=== PATIENT | male | born 1945 | race Caucasian/White ===

== ENCOUNTER 2020-12-05 08:35 | Outpatient (REF) | payer MEDICARE, OTHER, SELFPAY ==
--- NOTE | ~2020-12-05 | MR_ITS ---
EXAMINATION: MR BRAIN WITHOUT AND WITH CONTRAST CLINICAL INFORMATION: Bilateral sensorineural hearing loss. Left-sided tinnitus. COMPARISON: CT scan of the sinuses 09/30/2019. TECHNIQUE: Multiplanar MR imaging of the brain was performed without and with contrast. A total of 8.5 mL Gadavist was utilized for this examination. FINDINGS: Dedicated high-resolution imaging through the posterior fossa reveals no cerebellopontine angle cistern mass. There is no abnormal enhancement along the cisternal segments of the 7th or 8th cranial nerves. Labyrinthine structures are morphologically normal. There is no mastoid middle ear effusion. No abnormal petrous temporal bone enhancement. There is no intracranial mass effect or midline shift. No abnormal extra-axial collection. Lateral and third ventricles are normal. No hydrocephalus. Midline structures including the cervicomedullary junction are normal. No acute bone marrow signal changes. There are a few scattered nonspecific foci of T2 FLAIR signal hyperintensity within the periventricular white matter. No acute territorial infarct. No pathological magnetic susceptibility artifact. Intracranial vascular flow voids are maintained. There is no mastoid or middle ear effusion. No active paranasal sinus disease. MR/MR head/brain wo/w con IMPRESSION: Normal brain MRI.
[2020-12-05 09:18] LABS: Blood Urea Nitrogen 16 mg/dL (9-16); Estimated Glomerular Filt Rate 58
== END 2020-12-05 08:36 | disposition home or self-care (01) ==
LOC: HO.MRI 08:35
PROVIDERS: Visit Provider Otolaryngology
DX: H90.3 Sensorineural hearing loss, bilateral (principal); H93.12 Tinnitus, left ear
CPT/HCPCS: 36415; 70553; 82565; 84520; A9585

== ENCOUNTER 2022-10-06 14:36 | Emergency (ER) | payer MEDICARE, OTHER, SELFPAY ==
--- NOTE | 2022-10-06 15:00 | ED.WOUNDLAC ---
HPI - Wound/Laceration General Chief Complaint: Wound/Laceration <TAMIKA Barrientos - Last Filed: 10/06/22 15:05> Stated Complaint: l arm laceration <TAMIKA Barrientos - Last Filed: 10/06/22 15:05> Time Seen by Provider: 10/06/22 16:48 <TAMIKA Barrientos - Last Filed: 10/06/22 15:05> Source: patient <Hermelinda Mendoza MD - Last Filed: 10/06/22 18:27> Mode of arrival: ambulatory <Hermelinda Mendoza MD - Last Filed: 10/06/22 18:27> History of Present Illness HPI narrative: 76-year-old male who cut his forearm on a piece of duct work and does not know his last tetanus shot and is not on a blood thinners. <Hermelinda Mendoza MD - Last Filed: 10/06/22 18:27> Related Data Allergies/Adverse Reactions: Allergies Allergy/AdvReac Type Severity Reaction Status Date / Time No Known Allergies Allergy Verified 10/06/22 15:03 <TAMIKA Barrientos - Last Filed: 10/06/22 15:05> Review of Systems Review of Systems: Pertinent positives and negatives as stated in HPI <Hermelinda Mendoza MD - Last Filed: 10/06/22 18:27> PMFSH Past Medical History Source: nursing notes reviewed <Hermelinda Mendoza MD - Last Filed: 10/06/22 18:27> Social History Social History: Social History Advance Directives: No Advance Directives Information Provided: Yes <TAMIKA Barrientos - Last Filed: 10/06/22 15:05> Physical Exam Vital Signs: Vital Signs: Last Vital Signs Temp 97.8 F 10/06/22 15:01 Pulse 93 10/06/22 15:01 Resp 18 10/06/22 15:01 BP 167/90 H 10/06/22 15:01 Pulse Ox 95 10/06/22 15:01 O2 Del Method 10/06/22 15:01 BMI result Body Mass Index 25.1 <TAMIKA Barrientos - Last Filed: 10/06/22 15:05> Vital Signs: Last Vital Signs Temp 97.8 F 10/06/22 15:01 Pulse 93 10/06/22 15:01 Resp 18 10/06/22 15:01 BP 167/90 H 10/06/22 15:01 Pulse Ox 95 10/06/22 15:01 O2 Del Method 10/06/22 15:01 BMI result Body Mass Index 25.1 VITAL SIGNS: Reviewed. GENERAL: Well developed, well nourished, in no acute distress. HEAD: Normocephalic/atraumatic EYES: PERRLA, EOMI LUNGS: Normal breath sounds. No adventitious sounds or accessory muscle use. SpO2<95> CARDIOVASCULAR: Regular rate and rhythm without noted murmurs, ABDOMEN: Soft, non-tender, non-distended with bowel sounds. EXTREMITIES: No cyanosis, clubbing or edema; LUE: Full range of motion noted at the fingers and wrist, neurovascular is intact but there is a 4.5 cm laceration, superficial, hemostatic at the left forearm.. NEUROLOGIC: Alert and oriented x 4. Strength and sensation to light touch were grossly intact x 4. <Hermelinda Mendoza MD - Last Filed: 10/06/22 18:27> Vital Signs: Last Vital Signs Temp 97.8 F 10/06/22 15:01 Pulse 93 10/06/22 15:01 Resp 18 10/06/22 15:01 BP 167/90 H 10/06/22 15:01 Pulse Ox 95 10/06/22 15:01 O2 Del Method 10/06/22 15:01 BMI result Body Mass Index 25.1 <TAMIKA Clark - Last Filed: 10/06/22 17:42> Course Course Course Narrative: RME - 76 yo M presenting for evaluation of left arm laceration sustained today after a piece of duct work fell on it. He is unsure when his last tetanus immunization was. Left arm with 3cm linear laceration, bleeding well controlled. VSS in triage. Plan: tdap ordered. lidocaine order, will need sutures <TAMIKA Barrientos - Last Filed: 10/06/22 15:05> Reevaluation(s) Reevaluation #1: Patient now status post laceration repair with 11 sutures placed. Patient tolerated procedure well. No complications. Tetanus was updated. Will instruct patient to return suture removal. Patient understands agrees with this plan. <TAMIKA Clark - Last Filed: 10/06/22 17:42> Time: 17:41 <TAMIKA Clark - Last Filed: 10/06/22 17:42> Medications Administered Discontinued Medications Generic Name Dose Route Start Last Admin Trade Name Freq PRN Reason Stop Dose Admin Bacitracin 1 appl 10/06/22 17:40 10/06/22 17:46 Bacitracin Oint 0.9 Gm Packet TOPICAL 10/06/22 17:41 1 appl ONCE ONE Administration Protocol Diphtheria/Tetanus/Acell Pertussis 0.5 ml 10/06/22 15:02 10/06/22 17:42 Diphth,Pertus(Acell),Tet Adult 0.5 Ml Syringe IM 10/06/22 15:03 0.5 ml .ONCE ONE Administration Lidocaine HCl 10 ml 10/06/22 16:52 10/06/22 17:43 Lidocaine Hcl 1 % Mpf 5 Ml Vial SUBCUT 10/06/22 16:53 10 ml ONCE ONE Administration <TAMIKA Barrientos - Last Filed: 10/06/22 15:05> Medications Administered Discontinued Medications Generic Name Dose Route Start Last Admin Trade Name Freq PRN Reason Stop Dose Admin Bacitracin 1 appl 10/06/22 17:40 10/06/22 17:46 Bacitracin Oint 0.9 Gm Packet TOPICAL 10/06/22 17:41 1 appl ONCE ONE Administration Protocol Diphtheria/Tetanus/Acell Pertussis 0.5 ml 10/06/22 15:02 10/06/22 17:42 Diphth,Pertus(Acell),Tet Adult 0.5 Ml Syringe IM 10/06/22 15:03 0.5 ml .ONCE ONE Administration Lidocaine HCl 10 ml 10/06/22 16:52 10/06/22 17:43 Lidocaine Hcl 1 % Mpf 5 Ml Vial SUBCUT 10/06/22 16:53 10 ml ONCE ONE Administration <Hermelinda Mendoza MD - Last Filed: 10/06/22 18:27> Medications Administered Discontinued Medications Generic Name Dose Route Start Last Admin Trade Name Freq PRN Reason Stop Dose Admin Bacitracin 1 appl 10/06/22 17:40 10/06/22 17:46 Bacitracin Oint 0.9 Gm Packet TOPICAL 10/06/22 17:41 1 appl ONCE ONE Administration Protocol Diphtheria/Tetanus/Acell Pertussis 0.5 ml 10/06/22 15:02 10/06/22 17:42 Diphth,Pertus(Acell),Tet Adult 0.5 Ml Syringe IM 10/06/22 15:03 0.5 ml .ONCE ONE Administration Lidocaine HCl 10 ml 10/06/22 16:52 10/06/22 17:43 Lidocaine Hcl 1 % Mpf 5 Ml Vial SUBCUT 10/06/22 16:53 10 ml ONCE ONE Administration <TAMIKA Clark - Last Filed: 10/06/22 17:42> Medical Decision Making Medical Decision Making MDM Narrative: 76-year-old male who has a hemostatic laceration to the left upper extremity and is superficial in nature. Copiously irrigated and reapproximated with 4-0 nylon after administration of lidocaine. Patient tolerated procedure well. Patient received the Tdap today. <Hermelinda Mendoza MD - Last Filed: 10/06/22 18:27> Differential Diagnosis Differential Diagnoses: The differential diagnosis associated with the presentation includes <Hermelinda Mendoza MD - Last Filed: 10/06/22 18:27> Please see the discussion above <Hermelinda Mendoza MD - Last Filed: 10/06/22 18:27> Procedures Laceration Laceration 1: Site: upper extremity <TAMIKA Clark - Last Filed: 10/06/22 17:42> Side (If applicable): left <TAMIKA Clark - Last Filed: 10/06/22 17:42> Size (cm): 3 <TAMIKA Clark - Last Filed: 10/06/22 17:42> Description: linear <TAMIKA Clark - Last Filed: 10/06/22 17:42> Depth: simple, single layer <TAMIKA Clark - Last Filed: 10/06/22 17:42> Local Anesthetic: lidocaine 1% <TAMIKA Clark - Last Filed: 10/06/22 17:42> Amount of anesthesia used (mL): 3 <TAMIKA Clark - Last Filed: 10/06/22 17:42> Pre-repair: wound explored, irrigated extensively and deep structures intact <TAMIKA Clark - Last Filed: 10/06/22 17:42> Skin layer closed with: nylon <TAMIKA Clark - Last Filed: 10/06/22 17:42> Size (cm): 4-0 <TAMIKA Clark - Last Filed: 10/06/22 17:42> Number of sutures: 11 <TAMIKA Clark - Last Filed: 10/06/22 17:42> Technique: simple, interrupted <TAMIKA Clark - Last Filed: 10/06/22 17:42> Discharge Plan Discharge Clinical Impression: Laceration <TAMIKA Barrientos - Last Filed: 10/06/22 15:05> Patient Disposition: Home, Self-Care <TAMIKA Barrientos - Last Filed: 10/06/22 15:05> Instructions: Care For Your Stitches (ED), Laceration (ED) <TAMIKA Barrientos - Last Filed: 10/06/22 15:05> Additional Instructions: 1. Please return for the removal of your stitches in 5-7 days. You also received the tetanus booster today. 2. Please feel free to cleanse the area with soap and water after 24 hours, blot dry and reapply antibiotic ointment (do not use Neosporin). 3. Please feel free to return to the ER for the removal of your stitches. Use [id number] Tylenol/ibuprofen as needed for pain control. Return to the ER for any worsening symptoms. <TAMIKA Barrientos - Last Filed: 10/06/22 15:05> Referrals: Ifeoma Aragon MD [Primary Care Provider] - <TAMIKA Barrientos - Last Filed: 10/06/22 15:05> Interventions: ED Discharge Assessment Last Done: 10/06/22 17:49 <TAMIKA Barrientos - Last Filed: 10/06/22 15:05> Discharge Date/Time: 10/06/22 17:52 <TAMIKA Barrientos - Last Filed: 10/06/22 15:05>
[2022-10-06 15:01] VITALS: BP 167/90; PULSE 93; RESP 18; TEMP 36.6; O2SAT 95; BMI 25.1
[2022-10-06] MEDS: Diphth,Pertus(ACell),Tet Adult 0.5 ML SYRINGE IM (17:42)
[2022-10-06] MEDS: Lidocaine HCl 1 % MPF 5 ML VIAL 10 ML SUBCUT (17:43)
[2022-10-06] MEDS: Bacitracin Oint 0.9 GM PACKET 1 APPL TOPICAL (17:46)
== END 2022-10-06 17:52 | disposition home or self-care (01) ==
PROVIDERS: Emergency Provider Student in an Organized Health Care Education/Training Program; PCP Internal Medicine
DX: S51.812A Laceration without foreign body of left forearm, initial encounter (principal); W20.8XXA Other cause of strike by thrown, projected or falling object, initial encounter; Y93.E9 Activity, other interior property and clothing maintenance; Y92.019 Unspecified place in single-family (private) house as the place of occurrence of the external cause; Y99.9 Unspecified external cause status
CPT/HCPCS: 12002; 90471; 90715; 99282; 99284

== ENCOUNTER 2022-10-13 10:10 | Emergency (ER) | payer MEDICARE, OTHER, SELFPAY ==
[2022-10-13 10:16] VITALS: BP 174/82; PULSE 104; RESP 20; TEMP 36.7; O2SAT 96; BMI 25.8
--- NOTE | 2022-10-13 10:57 | ED.SKABFB ---
HPI - Skin/Abscess/Foreign Bdy General Chief complaint: Skin/Abscess/Foreign Body Stated complaint: Suture removal Time Seen by Provider: 10/13/22 10:57 Source: patient and old records reviewed Mode of arrival: ambulatory Limitations: no limitations History of Present Illness HPI narrative: 76 yo male presents to the ER for evaluation of a wound on his left forearm and for suture removal. He was here 7 days ago with a gaping wound to his distal left forearm when a metal duct fell and cut his arm. He required 11 sutures for wound closure. He denies any issues at home. No pain, drainage. He reports some mild redness around the wound but no warmth or concerns of infection. complaint: laceration Onset (ago): day(s) (7) Tetanus up to date: yes Location: LUE Severity: mild Relieving factors: none Exacerbating factors: none Context: none Associated symptoms: denies other symptoms Treatments prior to arrival: none Related Data Allergies Allergy/AdvReac Type Severity Reaction Status Date / Time No Known Allergies Allergy Verified 10/06/22 15:03 Review of Systems Review of Systems: Yes all other systems are reviewed and are negative [facility] Social History Social History Advance Directives: No Advance Directives Information Provided: No Physical Exam Vital Signs: Vital Signs: Last Vital Signs Temp 98.0 F 10/13/22 10:16 Pulse 104 H 10/13/22 10:16 Resp 20 10/13/22 10:16 BP 174/82 H 10/13/22 10:16 Pulse Ox 96 10/13/22 10:16 O2 Del Method 10/13/22 10:16 BMI result Body Mass Index 25.8 Appearance: Alert. Oriented X3. No acute distress. HEENT: normal inspection CVS: Normal heart rate and rhythm. Pulses normal. Respiratory: No respiratory distress. Skin: Skin warm and dry. Normal skin color. Normal skin turgor. No rashes. Extremities: distal left forearm with a well healing laceration, [address] mild erythema surrounding. no palpable fluid collection, no warmth or tenderness. Neuro: Oriented X 3. Grossly normal, nonfocal Course Course Course Narrative: tolerated suture removal. steri strips placed for additional support. discussed wound care. stable for d/c Medical Decision Making Medical Decision Making MDM Narrative: 76 yo male presents to the ER for wound evaluation and suture removal. Wound appears to be healing appropriately. When sutures were removed there are a few areas where not complete healing occurred, so steri strips were placed with good effect. we discussed wound care and return precautions. Differential Diagnosis Differential Diagnoses: The differential diagnosis associated with the presentation includes appropriate wound healing, less likely delayed healing or wound infection External Record Review External record reviewed: Outpatient record Critical Care Time Critical Care Time Critical Care Time: No Discharge Plan Discharge Clinical Impression: Visit for suture removal Patient Disposition: Home, Self-Care Instructions: Stitches Removal (ED) Additional Instructions: Do not get wet for 24 hours then you can briefly rinse with water and then pat dry The steri strips will come off on their own, usually within 1 week If you develop new or worsening symptoms call 911 or come back to the ER for further evaluation.
== END 2022-10-13 11:08 | disposition home or self-care (01) ==
LOC: HO.ED 11:07
PROVIDERS: Emergency Provider Emergency Medicine; PCP Internal Medicine
DX: S51.812D Laceration without foreign body of left forearm, subsequent encounter (principal); W20.8XXD Other cause of strike by thrown, projected or falling object, subsequent encounter; Z48.02 Encounter for removal of sutures
CPT/HCPCS: 99282

== ENCOUNTER 2022-11-13 11:07 | Outpatient (REF) | payer MEDICARE, OTHER, SELFPAY ==
[2022-11-13 14:36] LABS: Anion Gap 15 (12-20); Blood Urea Nitrogen 16 mg/dL (9-16); Calcium 9.5 mg/dL (8.4-10.2); Carbon Dioxide 26 mmol/L (22-29); Chloride 106 mmol/L (96-108); Estimated Glomerular Filt Rate 50; Glucose Random 109 mg/dL (60-115); Potassium 4.9 mmol/L (3.3-5.1); Sodium 142 mmol/L (135-145)
== END 2022-11-13 11:08 | disposition home or self-care (01) ==
LOC: HO.HMGCLDS 11:07
PROVIDERS: PCP Internal Medicine; Visit Provider Internal Medicine
DX: I10 Essential (primary) hypertension (principal); E78.9 Disorder of lipoprotein metabolism, unspecified
CPT/HCPCS: 36415; 80048

== ENCOUNTER 2022-12-22 07:53 | Outpatient (REF) | payer MEDICARE, OTHER, SELFPAY ==
[2022-12-22 08:05] LABS: MANUAL DIFF FLAG NO
[2022-12-22 08:15] LABS: Basophils Percent Auto 0.1 % (0-2); Eosinophils Absolute Auto 0.3 X10*3/uL (0.0-0.4); Eosinophils Percent Auto 4.1 % (0-4); Hematocrit 42.5 % (42.0-52.0); Hemoglobin 14.1 g/dl (14.0-18.0); Imm Gran Abs Auto 0.09 X10*3/uL (0.00-0.03); Imm Gran Pct Auto 1.1 % (0.0-0.4); Lymphocytes Absolute Auto 1.5 X10*3/uL (1.2-4.9); Mean Corpuscular HGB Conc 33.2 g/dl (31.0-36.0); Mean Corpuscular Hemoglobin 29.9 pg (27.0-33.0); Mean Platelet Volume 9.3 fL (9.4-12.4); Monocytes Percent Auto 12.5 % (2-11); Neutrophils Absolute Auto 5.1 x10*3/uL (2.0-8.3); Neutrophils Percent Auto 63.2 % (45-73); Platelet Count 368 X10*3/uL (160-400); Red Blood Count 4.72 X10*6/uL (4.60-5.80); Red Cell Distribution Width 13.6 % (11.0-16.0); White Blood Count 8.1 X10*3/uL (4.8-10.8)
[2022-12-22 08:40] LABS: Alanine Aminotransferase 12 U/L (0-40); Alkaline Phosphatase 96 U/L (39-117); Anion Gap 11 (12-20); Aspartate Amino Transferase 14 U/L (5-37); Bilirubin Total 0.5 mg/dL (0.0-1.0); Blood Urea Nitrogen 17 mg/dL (9-16); Calcium 9.3 mg/dL (8.4-10.2); Carbon Dioxide 27 mmol/L (22-29); Chloride 107 mmol/L (96-108); Cholesterol 178 mg/dL; Estimated Glomerular Filt Rate 46; Glucose Random 109 mg/dL (60-115); HDL Cholesterol 40 mg/dL; LDL Cholesterol Calculated 120 mg/dl; Potassium 4.7 mmol/L (3.3-5.1); Sodium 140 mmol/L (135-145); Total Protein 6.7 g/dL (6.5-8.0); Triglycerides 94 mg/dL
[2022-12-22 08:57] LABS: TSH reflex Free T4 1.01 uIU/mL (0.32-4.0)
== END 2022-12-22 07:54 | disposition home or self-care (01) ==
LOC: HO.LAB 07:53
PROVIDERS: PCP Internal Medicine; Visit Provider Nurse Practitioner Family
DX: I10 Essential (primary) hypertension (principal); E05.90 Thyrotoxicosis, unspecified without thyrotoxic crisis or storm; R79.9 Abnormal finding of blood chemistry, unspecified; Z13.0 Encounter for screening for diseases of the blood and blood-forming organs and certain disorders involving the immune mechanism; Z13.220 Encounter for screening for lipoid disorders
CPT/HCPCS: 36415; 80053; 80061; 84443; 85025

== ENCOUNTER 2023-02-04 07:35 | Outpatient (REF) | payer MEDICARE, OTHER, SELFPAY ==
[2023-02-04 08:44] LABS: Alanine Aminotransferase 11 U/L (0-40); Albumin Level 3.9 g/dL (3.5-5.0); Alkaline Phosphatase 99 U/L (39-117); Anion Gap 13 (12-20); Aspartate Amino Transferase 14 U/L (5-37); Bilirubin Total 0.6 mg/dL (0.0-1.0); Blood Urea Nitrogen 15 mg/dL (9-16); Calcium 9.8 mg/dL (8.4-10.2); Carbon Dioxide 24 mmol/L (22-29); Chloride 109 mmol/L (96-108); Estimated Glomerular Filt Rate 55; Glucose Random 107 mg/dL (60-115); Potassium 4.3 mmol/L (3.3-5.1); Sodium 142 mmol/L (135-145); Total Protein 7.3 g/dL (6.5-8.0)
== END 2023-02-04 07:36 | disposition home or self-care (01) ==
LOC: HO.LAB 07:35
PROVIDERS: PCP Nurse Practitioner Family; Visit Provider Nurse Practitioner Family
DX: R79.9 Abnormal finding of blood chemistry, unspecified (principal)
CPT/HCPCS: 36415; 80053

== ENCOUNTER 2023-03-31 09:25 | Outpatient (AMB) | payer MEDICARE, OTHER, SELFPAY ==
[2023-03-31 09:27] VITALS: BP 162/80; PULSE 93; O2SAT 97; BMI 25.1
--- NOTE | 2023-03-31 09:27 | MHC.PC.OV ---
Vital Signs 03/31/23 09:27 Height 5 ft 10 in Weight 175 lb BMI 25.1 BP 162/80 H Blood Pressure Location Lt brachial Position Sitting Pulse 93 Pulse Source Pulse Oximeter Pulse Oximetry (%) 97 Oxygen Delivery Method Room Air Intake Visit Reasons: HTN, Hypercholestermia,hypothyroid Allergies No Known Allergies Allergy (Verified 03/31/23 09:28) Tobacco use date assessed: 12/18/22 Fall risk assessment: No Falls in past year Last assessed Fall Risk: 03/31/23 Dental Screening Dental Screen Date: 03/31/23 Did you have a dental visit in the last 12 months?: Yes Did you have a dental problem in the last 6 months where you did not have access to dental care?: No Was dental information given to patient?: Patient has dentist HPI HPI Comments History of Present Illness Details 77-year-old male new patient presents today to establish care. Past medical history significant for hyperthyroidism, hypercholesteremia, HTN and GERD. HX Prostat CA in 1996, s/p prostatectomy. Patient states he follow with Dr. Riley Endocrinology at [facility] for hyperthyroidism and takes methimazole as directed by them. Patient currently on lisinopril 20mg daily, b/p elevated today 162/80. Patient reports HCTZ 12.5mg daily was added couple months ago by his general clerk for elevated b/p. Patient states checks b/p at home and it typically runs, 120-130/60/70's. Discussed increasing enalapril to 30 mg daily with patient, however patient declined at this time would like to continue to monitor blood pressure at home and will call office with any elevated blood pressure readings. Patient reports slight dizziness, when changing position fast, patient advised to change positions slowly to ensure drink plenty water. CMP and fasting lipid panel ordered Patient also reports [facility] which showed shomething on his liver, Dr. Aquino and recent colonoscopy. Records requested. [facility] Medical History (Updated 12/18/22 @ 10:22 by SONYA Negron) Lipid disorder Prostate cancer Surgical History (Updated 12/18/22 @ 10:24 by SONYA Negron) H/O colonoscopy H/O prostatectomy History of right shoulder replacement Family History (Updated 12/18/22 @ 10:26 by SONYA Negron) Mother H/O mitral valve replacement Colon cancer Father Cirrhosis, alcoholic Social History (Updated 12/18/22 @ 10:26 by SONYA Negron) Household Members: Spouse Housing: House Alcohol intake: current Alcohol intake frequency: a few times a month Alcohol type: wine Patient Tobacco Use Status: Never used Tobacco e-Cigarette/Vaping Use: Never Used Second Hand Smoke Exposure: No Current occupational status: retired Cognitive needs: No Hearing needs: No Vision needs: Yes Questionnaire PHQ-9 Over the last 2 weeks, how often have you been bothered by any of the following problems? 1. Little interest or pleasure in doing things: not at all 2. Feeling down, depressed, or hopeless: not at all 3. Trouble falling or staying asleep, or sleeping too much: not at all 4. Feeling tired or having little energy: not at all 5. Poor appetite or overeating: not at all 6. Feeling bad about yourself - or that you are a failure or have let yourself or your family down: not at all 7. Trouble concentrating on things, such as reading the newspaper or watching television: not at all 8. Moving or speaking so slowly that other people could have noticed. Or the opposite - being so fidgety or restless that you have been moving around a lot more than usual: not at all 9. Thoughts that you would be better off or of hurting yourself in some way: not at all Total score: 0 Depression Screening Interpretation: Negative 34886 - PHQ-9 Billing: Yes Source: Developed by Drs. Miguel Lindsey, Lorna Lazcano, Romario Alberto and colleagues, with an educational rosas from [employer]. Thrive Questionnaire Date Thrive assessed: 12/18/22 I am a: Patient What is your living situation today?: I have a steady place to live Within the past 12 months, did the food you bought not last and you didn't have the money to get more?: Never true Within the past 12 months, did you worry whether your food would run out before you got money to buy more?: Never true Do you have trouble paying for medicines?: No Do you have trouble getting transportation to medical appointments?: No Do you have trouble paying your heating and electricity bill?: No Do you have trouble taking care of your child, family member or friend?: No Do you have trouble with day-to-day activities such as bathing, preparing meals, shopping, managing finances, etc.?: No Are you currently unemployed and looking for a job?: No Are you interested in more education?: No Currently or been in a relationship where the following occur: no concerns reported AUDIT C Alcohol Use Questionnaire (AUDIT-C) 1. How often do you have a drink containing alcohol?: Never Total Score: 0 GREGORY-7 AMB Questionnaire GREGORY-7 Date GREGORY - 7 assessed: 12/18/22 Feeling nervous, anxious, or on edge: 0 = Not at all Not being able to stop or control worryin = Not at all Worrying too much about different things: 0 = Not at all Trouble relaxin = Not at all Being so restless that it is hard to sit still: 0 = Not at all Becoming easily annoyed or irritable: 0 = Not at all Feeling afraid as if something awful might happen: 0 = Not at all Total GREGORY-7 score (0-4 normal; 5-9 mild; 10-14 moderate; 15-21 severe): 0 Source: Developed by Drs. Miguel Lindsey, Lorna Lazcano, Romario Alberto and colleagues, with an educational rosas from [employer]. GREGORY-7 Assessment Billing GREGORY-7 Assessment Tool: GREGORY-7 Assessment 01071 Review of Systems Const Denies chills, Denies fatigue, Denies fever(s) and Denies poor appetite Eyes Denies no additional complaints ENT Reports Normal hearing present Card Denies chest pain, Denies syncope, Denies rapid heart rate and Denies dyspnea Resp Denies cough and Denies dyspnea GI Denies change in stool character, Denies constipation, Denies diarrhea, Denies nausea and Denies vomiting Denies dysuria, Denies urinary frequency and Denies urinary urgency Neuro Reports Normal hearing present, Denies confusion and Denies syncope Psych Denies confusion Endo Denies fatigue Physical exam (Primary Care) Vital Signs: Last Vital Signs Pulse 93 03/31/23 09:27 BP 162/80 H 03/31/23 09:27 Pulse Ox 97 03/31/23 09:27 Oxygen Delivery Method Room Air 03/31/23 09:27 BMI result Body Mass Index 25.1 Tobacco/Smoking Status: Tobacco use Status Tobacco use date assessed 12/18/22 03/31/23 09:31 Patient Tobacco Use Status Never used Tobacco 03/31/23 09:31 e-Cigarette/Vaping Use Never Used 03/31/23 09:31 PHQ-9: PHQ-9 Score PHQ-9: Total score 0 03/31/23 10:01 Depression Screening Interpretation: Negative Thrive Assessment: Date of Thrive Assessment Date Thrive assessed 12/18/22 03/31/23 09:31 Currently or been in a relationship where the following occur: no concerns reported Const General: No confusion Orientation/consciousness: No confusion HENMT Head: Yes normocephalic and Yes atraumatic Eyes Conjunctivae: conjunctivae normal Chest Chest palpation & inspection: normal inspection of the chest Resp Effort & Inspection: normal respiratory effort Auscultation: clear to auscultation bilaterally, no crackles, no rhonchi and no wheezes Cardio Rate: regular rate Rhythm: regular rhythm Heart sounds: S1 normal heart sound present and S2 normal heart sound present GI Inspection: Yes normal to inspection Neuro General: No confusion Cranial nerves: Yes Normal hearing present Extrem General: No edema Assessment and Plan Assessment & Plan (1) Hypertension, essential: Code(s): I10 - Essential (primary) hypertension Plan: Continue on enalapril 20 mg daily and HCTZ 12.5 mg daily. Follow low-salt diet and exercise. Please monitor blood pressure home after sitting down for 3-5 minutes and keep a log. Please notify PCP of elevated blood pressure readings. (2) Hypercholesteremia: Code(s): E78.00 - Pure hypercholesterolemia, unspecified Plan: Continue on pravastatin 40 mg daily. Avoid fried foods, chicken skin, eggs, butter,margarine, pastries and? red meat. (3) Hyperthyroidism: Code(s): E05.90 - Thyrotoxicosis, unspecified without thyrotoxic crisis or storm Plan: Continue to follow with [facility] endocrinology. Continue Methimazole 10mg daily. (4) GERD (gastroesophageal reflux disease): Code(s): K21.9 - Gastro-esophageal reflux disease without esophagitis Plan: Continue on pantoprazole 40 mg daily. Plan Follow-up in 3 months. Orders: Orders Comprehensive [place]. Panel Fast Today E78.00 - Pure hypercholesterolemia, unspecified, I10 - Essential (primary) hypertension Lipid Panel Today E78.00 - Pure hypercholesterolemia, unspecified Medications: Refilled enalapril maleate 20 mg PO DAILY 90 tabs 3RF I10 - Essential (primary) hypertension pravastatin 40 mg PO DAILY 90 tabs 3RF Coding Level of Care Code Est Pt Level 3 (99947) Diagnoses Hypertension, essential I10 Hypercholesteremia E78.00 Hyperthyroidism E05.90 GERD (gastroesophageal reflux disease) K21.9 Additional Codes GREGORY-7 Assessment Billing - GREGORY-7 Assessment Tool: GREGORY-7 Assessment [id number] ([id number])
== END 2023-03-31 10:03 | disposition home or self-care (01) ==
PROVIDERS: Visit Provider Nurse Practitioner Family
DX: I10 Essential (primary) hypertension (principal); E78.00 Pure hypercholesterolemia, unspecified; E05.90 Thyrotoxicosis, unspecified without thyrotoxic crisis or storm; K21.9 Gastro-esophageal reflux disease without esophagitis
CPT/HCPCS: 99213

== ENCOUNTER 2023-04-23 08:02 | Outpatient (REF) | payer MEDICARE, OTHER, SELFPAY ==
[2023-04-23 11:20] LABS: Alanine Aminotransferase 13 U/L (0-40); Alkaline Phosphatase 86 U/L (39-117); Anion Gap 13 (12-20); Aspartate Amino Transferase 16 U/L (5-37); Bilirubin Total 0.5 mg/dL (0.0-1.0); Blood Urea Nitrogen 18 mg/dL (9-16); Calcium 9.4 mg/dL (8.4-10.2); Carbon Dioxide 24 mmol/L (22-29); Chloride 107 mmol/L (96-108); Cholesterol 179 mg/dL (<200); Estimated Glomerular Filt Rate 42; Glucose Fasting 112 mg/dL (60-99); HDL Cholesterol 42 mg/dL (>40); LDL Cholesterol Calculated 117 mg/dL (<100); Potassium 4.2 mmol/L (3.3-5.1); Sodium 140 mmol/L (135-145); Total Protein 7.2 g/dL (6.5-8.0); Triglycerides 102 mg/dL (<150)
== END 2023-04-23 08:03 | disposition home or self-care (01) ==
LOC: HO.10HDL 08:02
PROVIDERS: Visit Provider Nurse Practitioner Family
DX: E78.00 Pure hypercholesterolemia, unspecified (principal); I10 Essential (primary) hypertension
CPT/HCPCS: 36415; 80053; 80061

== ENCOUNTER 2023-05-08 08:01 | Outpatient (REF) | payer MEDICARE, OTHER, SELFPAY ==
[2023-05-08 11:27] LABS: Alanine Aminotransferase 11 U/L (0-40); Albumin Level 4.2 g/dL (3.5-5.0); Alkaline Phosphatase 82 U/L (39-117); Anion Gap 16 (12-20); Aspartate Amino Transferase 14 U/L (5-37); Bilirubin Total 0.6 mg/dL (0.0-1.0); Blood Urea Nitrogen 22 mg/dL (9-16); Calcium 9.4 mg/dL (8.4-10.2); Carbon Dioxide 21 mmol/L (22-29); Chloride 106 mmol/L (96-108); Estimated Glomerular Filt Rate 45; Glucose Fasting 107 mg/dL (60-99); Sodium 139 mmol/L (135-145); Total Protein 7.6 g/dL (6.5-8.0)
[2023-05-08 11:29] LABS: Estimated Average Glucose 108 mg/dL; Hemoglobin A1c % 5.4 % (<6.0)
== END 2023-05-08 08:02 | disposition home or self-care (01) ==
LOC: HO.10HDL 08:01
PROVIDERS: Visit Provider Nurse Practitioner Family
DX: R73.01 Impaired fasting glucose (principal)
CPT/HCPCS: 36415; 80053; 83036

== ENCOUNTER 2023-06-12 11:08 | Outpatient (AMB) | payer MEDICARE, OTHER, SELFPAY ==
--- NOTE | 2023-06-12 11:19 | HO.NEPHOV_ITS ---
Intake Vital Signs 06/12/23 11:20 Height 5 ft 10 in Weight 177 lb 4 oz BMI 25.4 BP 130/80 Blood Pressure Location Lt brachial Position Sitting Pulse 83 Pulse Source Pulse Oximeter Pulse Oximetry (%) 97 Intake Visit Reasons: CKD - Confirmed Instructional Technology Director Required: No Allergies No Known Allergies Allergy (Verified 06/12/23 11:20) HPI HPI Comments History of Present Illness Details 77-year-old man with a longstanding hist ory of hypertension which has been well controlled with enalapril. Recently hydrochlorothiazide 12.5 mg was added. Subsequently he developed lightheadedness and blood pressure dropped as low as 80 mm Hg systolic. Hydrochlorothiazide was discontinued. He monitors his blood pressure at home and systolic blood pressure is around 120-130 millimeter of mercury. Baseline creatinine is around 1.2-1.3 mg/dL as of 2020. In April 2023 creatinine bumped up to 1.59 widely was on enalapril 20 mg and hydrochlorothiazide 12.5 mg. No creatinine levels are available after discontinuation of hydrochlorothiazide. He has a history of a complex hepatic cyst and he is being followed by GI. Currently the plan is to monitor him. There was an incidental finding of a right renal cyst which has been documented as a simple cyst Today he has no specific complaints Assessment & Plan Assessment & Plan (1) CKD (chronic kidney disease): Code(s): N18.9 - Chronic kidney disease, unspecified Qualifiers: Chronic kidney disease stage 3 subtype: stage 3a (GFR 45-59) (2) Hypertension, essential: Code(s): I10 - Essential (primary) hypertension (3) SAMAN (acute kidney injury): Code(s): N17.9 - Acute kidney failure, unspecified Plan 77-year-old man with acute kidney injury superimposed on CKD. Acute kidney injury most likely due to hypoperfusion from a combination of GOPAL inhibitor and hydrochlorothiazide leading to hypotension. He has underlying chronic kidney disease most likely due to hypertensive nephrosclerosis. No evidence of obstruction based on the recent ultrasonogram. No reason to believe that is any active glomerular or interstitial disease at this time. Nevertheless we will rule that out. I plan to recheck the renal panel today. Since it has been more than 4 weeks since his HCTZ has been discontinued I expect the renal function to return to b aseline. If not we will proceed with further workup. I ordered a basic metabolic panel along with urinalysis. If he has significant shortness or hematuria will proceed with further workup. As well hypertension, the blood pressure seems acceptable. I encouraged him to stay on a low-sodium diet. He should monitor his blood pressure at home. The systolic blood pressure stays above 140 mmHg I will consider adding a small dose calcium channel isela. Complex hepatic cyst. Being followed by Gastroenterology. Simple right renal cyst. I do not think this needs further intervention at this time. All his questions were answered. Coding Level of Care Code New Pt Level 4 (71657) Diagnoses CKD (chronic kidney disease) N18.9 Chronic kidney disease stage 3 subtype: stage 3a (GFR 45-59) Hypertension, essential I10 SAMAN (acute kidney injury) N17.9 [facility] Medical History (Updated 06/12/23 @ 11:55 by Sonny Franklin MD) Prostate cancer Lipid disorder Surgical History (Updated 12/18/22 @ 10:24 by SONYA Negron) H/O colonoscopy History of right shoulder replacement H/O prostatectomy Family History (Updated 12/18/22 @ 10:26 by SONYA Negron) Mother H/O mitral valve replacement Colon cancer Father Cirrhosis, alcoholic Social History (Updated 12/18/22 @ 10:26 by SONYA Negron) Household Members: Spouse Housing: House Alcohol intake: current Alcohol intake frequency: a few times a month Alcohol type: wine Patient Tobacco Use Status: Never used Tobacco e-Cigarette/Vaping Use: Never Used Second Hand Smoke Exposure: No Current occupational status: retired Cognitive needs: No Hearing needs: No Vision needs: Yes Results Reviewed Results Reviewed: Serum creatinine 1.59 as of April 2023
[2023-06-12 11:20] VITALS: BP 130/80; PULSE 83; O2SAT 97; BMI 25.4
== END 2023-06-12 11:44 | disposition home or self-care (01) ==
LOC: HO.HKA 11:08
PROVIDERS: PCP Nurse Practitioner Family; Visit Provider Internal Medicine Hypertension Specialist
DX: I12.9 Hypertensive chronic kidney disease with stage 1 through stage 4 chronic kidney disease, or unspecified chronic kidney disease (principal); N18.9 Chronic kidney disease, unspecified; N17.9 Acute kidney failure, unspecified
CPT/HCPCS: 99203

== ENCOUNTER → 2023-06-12 11:08 | Outpatient (BNVA) | payer MEDICARE, OTHER, SELFPAY | PROVIDERS: PCP Nurse Practitioner Family; Visit Provider Internal Medicine Hypertension Specialist | DX: I12.9 Hypertensive chronic kidney disease with stage 1 through stage 4 chronic kidney disease, or unspecified chronic kidney disease (principal); N18.9 Chronic kidney disease, unspecified; N17.9 Acute kidney failure, unspecified | CPT/HCPCS: 99202 ==

== ENCOUNTER 2023-06-12 11:56 | Outpatient (REF) | payer MEDICARE, OTHER, SELFPAY ==
[2023-06-12 13:02] LABS: Appearance Urine Clear; Color Urine Yellow; Glucose Urine UA Negative (Negative); Leukocyte Esterase Urine Negative (Negative); Nitrite Urine Negative (Negative); PH 5.5 (5.0-9.0); Urine Blood Negative (Negative); Urine Ketones Negative (Negative); Urine Protein Negative (Neg-Trace)
[2023-06-12 13:09] LABS: Anion Gap 10 (12-20); Blood Urea Nitrogen 14 mg/dL (9-16); Calcium 9.2 mg/dL (8.4-10.2); Carbon Dioxide 25 mmol/L (22-29); Chloride 106 mmol/L (96-108); Estimated Glomerular Filt Rate 51; Potassium 4.3 mmol/L (3.3-5.1); Sodium 137 mmol/L (135-145)
== END 2023-06-12 11:57 | disposition home or self-care (01) ==
LOC: HO.10HDL 11:56
PROVIDERS: Visit Provider Internal Medicine Hypertension Specialist
DX: I12.9 Hypertensive chronic kidney disease with stage 1 through stage 4 chronic kidney disease, or unspecified chronic kidney disease (principal); N18.9 Chronic kidney disease, unspecified
CPT/HCPCS: 36415; 80051; 81003; 82310; 82565; 84520

== ENCOUNTER 2023-06-30 08:45 | Outpatient (AMB) | payer MEDICARE, OTHER, SELFPAY ==
--- NOTE | 2023-06-30 08:51 | MHC.PC.OV ---
Vital Signs 06/30/23 08:52 Height 5 ft 10 in Weight 178 lb BMI 25.5 BP 142/80 H Blood Pressure Location Lt brachial Position Sitting Pulse 92 Pulse Source Pulse Oximeter Pulse Oximetry (%) 97 Oxygen Delivery Method Room Air Intake Visit Reasons: HTN, Hypercholestermia Intake Note: Patient is here to follow up on HTN, Hypercholestermia. Sqe Required: No Artist Relationship Manager: Not Required per policy Accompanied by: Self / Same As Patient Allergies No Known Allergies Allergy (Verified 06/30/23 08:52) Tobacco use date assessed: 06/30/23 Fall risk assessment: No Falls in past year Last assessed Fall Risk: 06/30/23 Dental Screening Dental Screen Date: 06/30/23 Did you have a dental visit in the last 12 months?: Yes Did you have a dental problem in the last 6 months where you did not have access to dental care?: No Was dental information given to patient?: Patient has dentist HPI HPI Comments History of Present Illness Details 77-year-old male new patient presents today to establish care. Past medical history significant for hyperthyroidism, hypercholesteremia, HTN and GERD. HX Prostat CA in 1996, s/p prostatectomy. Patient states he follow with Dr. Riley Endocrinology at [facility] for hyperthyroidism and takes methimazole as directed by them. Patient currently on enalapril 20mg daily, b/p elevated today 162/80. Patient reports HCTZ 12.5mg daily was added couple months ago by his property claim rep for elevated b/p. Patient developed lightheadedness and hypotension in 80's. HCTZ was discotninued in May. Patient b/p 130/140 systolically, 70's/80's. Patient was seen by nephrology for CKD Patient denies nasal congestion, states when wake up in morning, when lays on back with get a wheeze in the morning and coughs up lot of mucus, then it resolves. Patient reports he does snore at night, denies periods of apnea, does have some daytime fatigue. Discussed sleep study for further evaluation for sleep apnea, patient reports he does not feel he has sleep apnea and states only snores sometimes. Declines sleep study at this time patient states does get winded when doing yard work or going up and down the stairs. 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 Patient is concerned he has a lung problem. [facility] Medical History (Updated 06/30/23 @ 09:22 by SONYA Negron) Prostate cancer Lipid disorder Surgical History H/O colonoscopy History of right shoulder replacement H/O prostatectomy Family History Mother H/O mitral valve replacement Colon cancer Father Cirrhosis, alcoholic Household Members: Spouse Housing: House Alcohol intake: current Alcohol intake frequency: a few times a month Alcohol type: wine Patient Tobacco Use Status: Never used Tobacco e-Cigarette/Vaping Use: Never Used Second Hand Smoke Exposure: No service: No Current occupational status: retired Cognitive needs: No Hearing needs: No Vision needs: Yes Questionnaire Thrive Questionnaire Date Thrive assessed: 12/18/22 GREGORY-7 AMB Questionnaire GREGORY-7 Date GREGORY - 7 assessed: 12/18/22 Source: Developed by Drs. Miguel Lindsey, Lorna Lazcano, Romario Alberto and colleagues, with an educational rosas from [employer]. Review of Systems Const Denies chills, Denies fatigue, Denies fever(s) and Denies poor appetite Eyes Denies no additional complaints ENT Reports Normal hearing present Card Denies chest pain, Denies syncope, Denies rapid heart rate and Denies dyspnea Resp Denies cough and Denies dyspnea GI Denies change in stool character, Denies constipation, Denies diarrhea, Denies nausea and Denies vomiting Denies dysuria, Denies urinary frequency and Denies urinary urgency Neuro Reports Normal hearing present, Denies confusion and Denies syncope Psych Denies confusion Endo Denies fatigue Physical exam (Primary Care) Vital Signs: Last Vital Signs Pulse 92 06/30/23 08:52 BP 142/80 H 06/30/23 08:52 Pulse Ox 97 06/30/23 08:52 Oxygen Delivery Method Room Air 06/30/23 08:52 BMI result Body Mass Index 25.5 Tobacco/Smoking Status: Tobacco use Status Tobacco use date assessed 06/30/23 06/30/23 08:56 Patient Tobacco Use Status Never used Tobacco 06/30/23 08:56 e-Cigarette/Vaping Use Never Used 06/30/23 08:56 Thrive Assessment: Date of Thrive Assessment Date Thrive assessed 12/18/22 06/30/23 08:56 Const General: No confusion Orientation/consciousness: No confusion HENMT Head: Yes normocephalic and Yes atraumatic Eyes Conjunctivae: conjunctivae normal Chest Chest palpation & inspection: normal inspection of the chest Resp Effort & Inspection: normal respiratory effort Auscultation: clear to auscultation bilaterally, no crackles, no rhonchi and no wheezes Cardio Rate: regular rate Rhythm: regular rhythm Heart sounds: S1 normal heart sound present and S2 normal heart sound present GI Inspection: Yes normal to inspection Neuro General: No confusion Cranial nerves: Yes Normal hearing present Extrem General: No edema Assessment and Plan Assessment & Plan (1) Wheezing: Code(s): R06.2 - Wheezing Plan: Offered prescription for albuterol inhaler. Patient declines at this time states he does not feel like he needs an inhaler. Patient agreeable to have PFTs completed for further evaluation. PFTs ordered. (2) Shortness of breath: Code(s): R06.02 - Shortness of breath Plan: Chest x-ray ordered. Patient declined prescription for inhaler. (3) Hypercholesteremia: Code(s): E78.00 - Pure hypercholesterolemia, unspecified Plan: Continue on pravastatin 40 mg daily, refill sent to patient's pharmacy. Avoid fried foods, chicken skin, eggs, butter,margarine, pastries and?? red meat. Fasting lipid panel ordered (4) CKD (chronic kidney disease): Code(s): N18.9 - Chronic kidney disease, unspecified Qualifiers: Chronic kidney disease stage 3 subtype: stage 3a (GFR 45-59) Plan: Continue to follow with Nephrology. Repeat BUN and creatinine normal. (5) Hypertension, essential: Code(s): I10 - Essential (primary) hypertension Plan: Continue on enalapril 20 mg daily. Did discuss increasing enalapril dose to 30 mg daily if needed, patient declined increase at this time states he will continue to monitor his blood pressure at home and watches salt intake and will notify office if he continues to have elevated blood pressures. Blood pressure goal less than 140/90. Plan Follow-up in 3 months Orders: Orders Lipid Panel Today E78.00 - Pure hypercholesterolemia, unspecified PFT pulmonary function test Today R06.2 - Wheezing XR chest 2V Today R06.02 - Shortness of breath Comprehensive [place]. Panel Fast Today E78.00 - Pure hypercholesterolemia, unspecified Medications: Refilled pravastatin 40 mg PO DAILY 90 tabs 3RF Coding Level of Care Code Est Pt Level 4 (00134) Diagnoses Wheezing R06.2 Shortness of breath R06.02 Hypercholesteremia E78.00 CKD (chronic kidney disease) N18.9 Chronic kidney disease stage 3 subtype: stage 3a (GFR 45-59) Hypertension, essential I10
[2023-06-30 08:52] VITALS: BP 142/80; PULSE 92; O2SAT 97; BMI 25.5
== END 2023-06-30 09:30 | disposition home or self-care (01) ==
PROVIDERS: PCP Nurse Practitioner Family; Visit Provider Nurse Practitioner Family
DX: R06.2 Wheezing (principal); R06.02 Shortness of breath; E78.00 Pure hypercholesterolemia, unspecified; N18.9 Chronic kidney disease, unspecified; I12.9 Hypertensive chronic kidney disease with stage 1 through stage 4 chronic kidney disease, or unspecified chronic kidney disease
CPT/HCPCS: 99214

== ENCOUNTER 2023-07-09 13:33 | Outpatient (REF) | payer MEDICARE, OTHER, SELFPAY ==
--- NOTE | ~2023-07-09 | XR_ITS ---
EXAMINATION: XR CHEST CLINICAL INFORMATION: Shortness of breath. COMPARISON: Chest radiograph 03/04/2010. TECHNIQUE: 2 views of the chest were obtained. FINDINGS: Normal heart size. No significant cardiomediastinal contour abnormality. Central peribronchial cuffing and mild diffuse interstitial prominence. No focal consolidation, pleural effusion or pneumothorax. No acute osseous findings. Thoracic spondylosis. Partially imaged right shoulder arthroplasty. Visualized upper abdomen is within normal limits. XR/XR chest 2V IMPRESSION: Findings are suggestive of mild pulmonary edema versus an atypical infectious/inflammatory process manifested by mild diffuse interstitial prominence and central peribronchial thickening. These findings are new compared to 2010. The report will be called to the ordering clinician by a [facility] Mold Closer Helper.
== END 2023-07-09 13:34 | disposition home or self-care (01) ==
LOC: HO.XRAY 13:33
PROVIDERS: Visit Provider Nurse Practitioner Family
DX: R06.02 Shortness of breath (principal)
CPT/HCPCS: 71046

== ENCOUNTER 2023-07-14 08:13 | Outpatient (REF) | payer MEDICARE, OTHER, SELFPAY ==
[2023-07-14 10:25] LABS: Alanine Aminotransferase 14 U/L (0-40); Alkaline Phosphatase 87 U/L (39-117); Anion Gap 12 (12-20); Aspartate Amino Transferase 18 U/L (5-37); Bilirubin Total 0.4 mg/dL (0.0-1.0); Blood Urea Nitrogen 14 mg/dL (9-16); Calcium 9.3 mg/dL (8.4-10.2); Carbon Dioxide 23 mmol/L (22-29); Chloride 110 mmol/L (96-108); Cholesterol 167 mg/dL (<200); Estimated Glomerular Filt Rate 52; Glucose Fasting 113 mg/dL (60-99); HDL Cholesterol 38 mg/dL (>40); LDL Cholesterol Calculated 111 mg/dL (<100); Potassium 4.1 mmol/L (3.3-5.1); Sodium 141 mmol/L (135-145); Total Protein 7.5 g/dL (6.5-8.0); Triglycerides 90 mg/dL (<150)
== END 2023-07-14 08:14 | disposition home or self-care (01) ==
LOC: HO.LAB 08:13
PROVIDERS: PCP Nurse Practitioner Family; Visit Provider Nurse Practitioner Family
DX: E78.00 Pure hypercholesterolemia, unspecified (principal)
CPT/HCPCS: 36415; 80053; 80061

== ENCOUNTER 2023-08-11 10:59 | Outpatient (AMB) | payer MEDICARE, OTHER, SELFPAY ==
[2023-08-11 11:00] VITALS: BP 142/80; PULSE 88; O2SAT 97; BMI 25.6
--- NOTE | 2023-08-11 11:00 | HO.NEPHOV_ITS ---
HPI HPI Comments History of Present Illness Details 77-year-old man with a longstanding hist ory of hypertension which has been well controlled with enalapril. Recently hydrochlorothiazide 12.5 mg was added. Subsequently he developed lightheadedness and blood pressure dropped as low as 80 mm Hg systolic. Hydrochlorothiazide was discontinued. He monitors his blood pressure at home and systolic blood pressure is around 120-130 millimeter of mercury. Baseline creatinine is around 1.2-1.3 mg/dL as of 2020. In April 2023 creatinine bumped up to 1.59 widely was on enalapril 20 mg and hydrochlorothiazide 12.5 mg. No creatinine levels are available after discontinuation of hydrochlorothiazide. He has a history of a complex hepatic cyst and he is being followed by GI. Currently the plan is to monitor him. There was an incidental finding of a right renal cyst which has been documented as a simple cyst 08/11/23 Overall doing well. No specific complaints today. [facility] Medical History Prostate cancer Lipid disorder Surgical History H/O colonoscopy History of right shoulder replacement H/O prostatectomy Family History Mother H/O mitral valve replacement Colon cancer Father Cirrhosis, alcoholic Social History Household Members: Spouse Housing: House Alcohol intake: current Alcohol intake frequency: a few times a month Alcohol type: wine Patient Tobacco Use Status: Never used Tobacco e-Cigarette/Vaping Use: Never Used Second Hand Smoke Exposure: No service: No Current occupational status: retired Cognitive needs: No Hearing needs: No Vision needs: Yes Vital Signs 08/11/23 11:00 Height 5 ft 10 in Weight 178 lb 8 oz BMI 25.6 BP 142/80 H Blood Pressure Location Rt brachial Position Sitting Pulse 88 Pulse Source Pulse Oximeter Pulse Oximetry (%) 97 Oxygen Delivery Method Room Air Physical Exam Vital Signs: Last Vital Signs Pulse 88 08/11/23 11:00 BP 142/80 H 08/11/23 11:00 Pulse Ox 97 08/11/23 11:00 Oxygen Delivery Method Room Air 08/11/23 11:00 BMI result Body Mass Index 25.6 Const General: comfortable Nutritional Appearance: well nourished Orientation/consciousness: patient oriented x3 HEENT Head: No normal to inspection Mouth: moist mucous membranes Neck Neck: Yes supple and Yes no JVD Resp Auscultation: clear to auscultation bilaterally, no rales and rub present Cardio Jugular venous distension: no JVD Palpation: no palpable S3 and no palpable S4 Heart sounds: no rubs GI Palpation (GI): Soft to palpation and nontender Percussion: No Fluid wave present General: Yes no CVA tenderness Back/Spine/Pelvis Back: no CVA tenderness Skin General skin exam: no rashes or lesions noted Neuro General: patient oriented x3 Extrem General: Yes no pedal edema and No clubbing Assessment & Plan Assessment & Plan (1) Hypertension, essential: Code(s): I10 - Essential (primary) hypertension (2) CKD (chronic kidney disease): Code(s): N18.9 - Chronic kidney disease, unspecified Qualifiers: Chronic kidney disease stage 3 subtype: stage 3a (GFR 45-59) (3) SAMAN (acute kidney injury): Code(s): N17.9 - Acute kidney failure, unspecified Plan 77-year-old man with acute kidney injury superimposed on CKD. Acute kidney injury most likely due to hypoperfusion from a combination of GOPAL inhibitor and hydrochlorothiazide leading to hypotension. He has underlying chronic kidney disease most likely due to hypertensive nephrosclerosis. No evidence of obstruction based on the recent ultrasonogram. No reason to believe that is any active glomerular or interstitial disease at this time. Nevertheless we will rule that out. Renal function is back to baseline with creatinine 1.3. She will avoid using HCTZ for now. Blood pressure is suboptimal Shall add amlodipine 2.5 mg once daily and titrate dose if needed. I encouraged him to stay on a low-sodium diet. He should monitor his blood pressure at home. Complex hepatic cyst. Being followed by Gastroenterology. Simple right renal cyst. I do not think this needs further intervention at this time. . Orders: Orders Electrolytes 3 Months N18.9 - Chronic kidney disease, unspecified Blood Urea Nitrogen 3 Months N18.9 - Chronic kidney disease, unspecified Creatinine 3 Months N18.9 - Chronic kidney disease, unspecified Calcium 3 Months N18.9 - Chronic kidney disease, unspecified Medications: New amlodipine 2.5 mg PO DAILY 30 tabs 3RF Coding Level of Care Code Est Pt Level 3 (19668) Diagnoses Hypertension, essential I10 CKD (chronic kidney disease) N18.9 Chronic kidney disease stage 3 subtype: stage 3a (GFR 45-59) SAMAN (acute kidney injury) N17.9 Results Reviewed Nephrology Results: Hgb 14.1 g/dl (14.0-18.0) 12/22/22 WBC 8.1 X10*3/uL (4.8-10.8) 12/22/22 Plt Count 368 X10*3/uL (160-400) 12/22/22 Sodium 141 mmol/L (135-145) 07/14/23 Potassium 4.1 mmol/L (3.3-5.1) 07/14/23 Chloride 110 mmol/L (96-108) H 07/14/23 Carbon Dioxide 23 mmol/L (22-29) 07/14/23 BUN 14 mg/dL (9-16) 07/14/23 Creatinine 1.34 mg/dL (0.5-1.4) 07/14/23 Calcium 9.3 mg/dL (8.4-10.2) 07/14/23 Urine Protein Negative mg/dL (Neg-Trace) 06/12/23
== END 2023-08-11 11:23 | disposition home or self-care (01) ==
PROVIDERS: PCP Nurse Practitioner Family; Visit Provider Internal Medicine Hypertension Specialist
DX: I12.9 Hypertensive chronic kidney disease with stage 1 through stage 4 chronic kidney disease, or unspecified chronic kidney disease (principal); N18.9 Chronic kidney disease, unspecified; N17.9 Acute kidney failure, unspecified
CPT/HCPCS: 99213

== ENCOUNTER → 2023-08-11 10:59 | Outpatient (BNVA) | payer MEDICARE, OTHER, SELFPAY | PROVIDERS: PCP Nurse Practitioner Family; Visit Provider Internal Medicine Hypertension Specialist | DX: N17.9 Acute kidney failure, unspecified (principal); I12.9 Hypertensive chronic kidney disease with stage 1 through stage 4 chronic kidney disease, or unspecified chronic kidney disease; N18.31 Chronic kidney disease, stage 3a | CPT/HCPCS: 99212 ==

== ENCOUNTER 2023-08-13 14:49 | Outpatient (REF) | payer MEDICARE, OTHER, SELFPAY ==
[2023-08-13 11:19] VITALS: PULSE 80; RESP 20; O2SAT 95
--- NOTE | 2023-08-13 15:15 | PFT_ITS ---
Flows: FEV1: ?81 % of predicted at 2.30 L FVC: ?75 % of predicted at 2.86 L FEV1/FVC: ?80 % Bronchodilator response: ?Absent Volumes: Total lung capacity: ?56 % of predicted at 3.86 L Residual volume: ?32 % of predicted at 2.65 L Slow vital capacity: ?75 % of predicted at 3.00 L Expiratory reserve volume: ?56 % of predicted at 0.66 L Diffusion capacity: ?Mild decreased, corrects to normal after adjustment for alveolar ventilation. Impression: ?Moderate restrictive ventilatory defect with no bronchodilator response.? Combination of restrictive ventilatory defect with decreased diffusion capacity suggests underlying pulmonary parenchymal disease.? Clinical correlation is advised. MTDD
== END 2023-08-13 14:50 | disposition home or self-care (01) ==
LOC: HO.RESP 14:49
PROVIDERS: PCP Nurse Practitioner Family; Visit Provider Nurse Practitioner Family
DX: R06.2 Wheezing (principal)
CPT/HCPCS: 94640

== ENCOUNTER → 2023-08-13 15:15 | Outpatient (BNV) | payer MEDICARE, OTHER, SELFPAY | PROVIDERS: PCP Nurse Practitioner Family; Visit Provider Internal Medicine Pulmonary Disease | DX: R06.2 Wheezing (principal) | CPT/HCPCS: 94060; 94727; 94729 ==

== ENCOUNTER 2023-09-08 11:19 | Outpatient (AMB) | payer MEDICARE, OTHER, SELFPAY ==
[2023-09-08 11:21] VITALS: BP 142/78; PULSE 92; O2SAT 96; BMI 25.0
--- NOTE | 2023-09-08 11:21 | MHC.OFFVIS ---
Intake Vital Signs 09/08/23 11:21 Height 5 ft 10 in Weight 174 lb 2.643 oz BMI 25.0 BP 142/78 H Blood Pressure Location Rt brachial Position Sitting Pulse 92 Pulse Source Doppler Pulse Oximetry (%) 96 Oxygen Delivery Method Room Air Intake Visit Reasons: Shortness of breath Allergies No Known Allergies Allergy (Verified 09/08/23 11:24) HPI Shortness of breath HPI Details 77-year-old gentleman, nonsmoker, referred for evaluation of intermittent dyspnea on exertion. Patient states that he started noticing symptoms year when he was hunting. In previous years with the same or higher exercise demand he had no symptoms. He does also complain of intermittent symptoms when going upstairs. 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 He denies family history of lung disease. His pulmonary function tests demonstrate significant restrictive ventilatory defect. His chest x-rays are unrevealing. [facility] Medical History Prostate cancer Lipid disorder Surgical History H/O colonoscopy History of right shoulder replacement H/O prostatectomy Family History Mother H/O mitral valve replacement Colon cancer Father Cirrhosis, alcoholic Social History Household Members: Spouse Housing: House Alcohol intake: current Alcohol intake frequency: a few times a month Alcohol type: wine Patient Tobacco Use Status: Never used Tobacco e-Cigarette/Vaping Use: Never Used Second Hand Smoke Exposure: No service: No Current occupational status: retired Cognitive needs: No Hearing needs: No Vision needs: Yes Review of Systems Const Denies daytime sleepiness, Denies excessive sweating, Denies fatigue, Denies fever(s), Denies lethargy, Denies malaise, Denies night sweats, Denies snoring and Denies weight loss Eyes Denies blurry vision and Denies itchy eyes ENT Denies nasal congestion, Denies post nasal drip, Denies sinus pain, Denies sinus pressure and Denies other ( Thrush) Card Denies chest pain, Denies pedal edema, Denies dyspnea, Reports dyspnea on exertion, Denies orthopnea and Denies paroxysmal nocturnal dyspnea Resp Denies cough, Denies hemoptysis, Denies excessive phlegm production, Denies dyspnea, Reports dyspnea on exertion, Denies snoring and Denies wheezing GI Denies abdominal pain and Denies heartburn Musc Denies myalgias, Denies arthralgias and Denies joint swelling Skin/Breast Denies rash Neuro Denies memory loss and Denies seizure-like activity Psych Denies abnormal sleep pattern, Denies anxiety and Denies memory loss Endo Denies excessive sweating, Denies fatigue and Denies heat intolerance Peter/Lymph Denies easy bruising Aller/Immun Denies itchy eyes, Denies seasonal rhinorrhea and Denies wheezing Physical Exam Vital Signs: Last Vital Signs Pulse 92 09/08/23 11:21 BP 142/78 H 09/08/23 11:21 Pulse Ox 96 09/08/23 11:21 Oxygen Delivery Method Room Air 09/08/23 11:21 BMI result Body Mass Index 25.0 Const General: no acute distress and alert Nutritional Appearance: not obese Orientation/consciousness: Other orientation findings ( oriented) HEENT Head: Yes atraumatic Eyes General: appearance normal, both eyes and all related structures Sclerae: sclerae normal EOM: EOMs intact bilaterally Neck Neck: Yes supple Lymphatic: no lymphadenopathy noted Resp Effort & Inspection: normal respiratory effort and no use of accessory muscles Auscultation: crackles (Inspiratory) bilateral Cardio Rate: regular rate Rhythm: regular rhythm Heart sounds: no gallops, no murmurs and no rubs Skin General skin exam: other ( warm) Extrem General: No clubbing, No cyanosis and No edema Assessment & Plan Assessment & Plan (1) Shortness of breath: Code(s): R06.02 - Shortness of breath (2) H/O asbestosis: Comment: hx asbestosis exposure Code(s): Z87.09 - Personal history of other diseases of the respiratory system (3) ILD (interstitial lung disease): Code(s): J84.9 - Interstitial pulmonary disease, unspecified Plan Suspicion for underlying interstitial lung disease, pulmonary fibrosis and/or asbestosis with insidious onset of symptoms. Pulmonary function test results reviewed - restrictive ventilatory defect with decrease in diffusion capacity. Will obtain CT chest for further evaluation. Orders: Orders CT chest wo IV con Today J84.9 - Interstitial pulmonary disease, unspecified Coding Level of Care Code New Pt Level 4 (56971) Diagnoses Shortness of breath R06.02 H/O asbestosis Z87.09 ILD (interstitial lung disease) J84.9
== END 2023-09-08 11:42 | disposition home or self-care (01) ==
PROVIDERS: PCP Nurse Practitioner Family; Visit Provider Internal Medicine Pulmonary Disease
DX: R06.02 Shortness of breath (principal); Z87.09 Personal history of other diseases of the respiratory system; J84.9 Interstitial pulmonary disease, unspecified
CPT/HCPCS: 99214

== ENCOUNTER → 2023-09-08 11:19 | Outpatient (BNVA) | payer MEDICARE, OTHER, SELFPAY | PROVIDERS: PCP Nurse Practitioner Family; Visit Provider Internal Medicine Pulmonary Disease | DX: R06.02 Shortness of breath (principal); J84.9 Interstitial pulmonary disease, unspecified; Z77.090 Contact with and (suspected) exposure to asbestos | CPT/HCPCS: 99212 ==

== ENCOUNTER 2023-10-09 12:59 | Outpatient (REF) | payer MEDICARE, OTHER, SELFPAY ==
--- NOTE | ~2023-10-09 | CT_ITS ---
EXAMINATION: CT CHEST WITHOUT CONTRAST CLINICAL INFORMATION: Interstitial pulmonary disease COMPARISON: 03/22/2010 TECHNIQUE: Multidetector volumetric CT imaging of the chest was done. Axial MIP volume rendering provided. Sagittal and coronal reformatted images were obtained. This CT examination was performed using dose optimization techniques as appropriate, variously including the following: *Automated exposure control *Adjustment of mA and/or kV according to patient size (this includes techniques or standardized protocols for targeted exams where dose is matched to indication/reason for exam; i.e. extremities or head) *Use of iterative reconstruction technique DLP: 212 mGy-cm FINDINGS: DIPLOMATIC INTERPRETER: Unremarkable LUNGS: There is 0.4 cm subpleural lung nodules seen in the right upper lobe seen on image 90 and there are few punctate subpleural nodule seen in the right lower lobe. There is minimal scarring and honeycombing seen in the dependent portion of right lower lobe and left lower lobe. There is prominence of the bronchi in the left lower lobe consistent with mild bronchiectasis. Airways are patent. Series 4 Central airways are patent. Atelectasis seen bibasilar. MEDIASTINUM: There is prominence of the right main pulmonary artery. Aorta is nondilated. There is no mediastinal or hilar lymphadenopathy. CORONARY ARTERY CALCIFICATION: Mild PLEURA: There is no pleural effusion. No pleural mass or thickening. AXILLA: No lymphadenopathy. UPPER ABDOMEN: There is small hiatal hernia. OSSEOUS STRUCTURES: There are mild degenerative changes in the mid thoracic spine with marginal spurring. CT/CT chest wo IV con IMPRESSION: 1. Mild bronchiectasis in left lower lobe. 2. Small subpleural nodules in the right upper lobe and right lower lobe. 3. Mild prominence of the right main pulmonary artery. 4. Mild coronary artery calcifications. 5. Small hiatal hernia. Fleischner guidelines were followed.
== END 2023-10-09 13:00 | disposition home or self-care (01) ==
LOC: HO.CT 12:59
PROVIDERS: Visit Provider Internal Medicine Pulmonary Disease
DX: J84.9 Interstitial pulmonary disease, unspecified (principal)
CPT/HCPCS: 71250

== ENCOUNTER 2023-10-15 13:57 | Outpatient (AMB) | payer MEDICARE, OTHER, SELFPAY ==
--- NOTE | 2023-10-15 13:58 | A.OFFVIS_ITS ---
Intake Vital Signs 10/15/23 13:59 Height 5 ft 10 in Weight 171 lb 15.369 oz BMI 24.7 BP 130/78 Blood Pressure Location Lt brachial Position Sitting Pulse 102 H Pulse Source Pulse Oximeter Pulse Oximetry (%) 95 Oxygen Delivery Method Room Air Intake Visit Reasons: Shortness of breath Deputy Editor In Chief Required: No Front Desk Receptionist: Front Desk Receptionist offered & declined Accompanied by: Self / Same As Patient Allergies No Known Allergies Allergy (Verified 10/15/23 14:05) Medication List - Last Reconciled 10/15/23 by Maria Teresa Coates LPN albuterol sulfate 90 mcg/actuation 2 puffs inhalation Q4-6H PRN amlodipine 2.5 mg PO DAILY enalapril maleate 20 mg PO DAILY pantoprazole 40 mg PO QAM pravastatin 40 mg PO DAILY HPI Shortness of breath HPI Details 77-year-old gentleman, nonsmoker, referr ed for evaluation of intermittent dyspnea on exertion. Patient states that he started noticing symptoms year when he was hunting. In previous years with the same or higher exercise demand he had no symptoms. He does also complain of intermittent symptoms when going upstairs. 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 He denies family history of lung disease. His pulmonary function tests demonstrate significant restrictive ventilatory defect. His chest x-rays are unrevealing. After the last office visit patient had CT chest showed mild basilar fibrosis. He continues to complain of some difficulty breathing when going up stairs. [facility] Medical History Prostate cancer Lipid disorder Surgical History H/O colonoscopy History of right shoulder replacement H/O prostatectomy Family History Mother H/O mitral valve replacement Colon cancer Father Cirrhosis, alcoholic Social History (Updated 10/15/23 @ 14:04 by Maria Teresa Coates LPN) Household Members: Spouse Housing: House Alcohol intake: current Alcohol intake frequency: a few times a month Alcohol type: wine Patient Tobacco Use Status: Former Tobacco user Cigarette Packs Per Day: 1 Years Smoked: 10 e-Cigarette/Vaping Use: Never Used Second Hand Smoke Exposure: No service: No Current occupational status: retired Cognitive needs: No Hearing needs: No Vision needs: Yes Review of Systems Const Denies daytime sleepiness, Denies excessive sweating, Denies fatigue, Denies fever(s), Denies lethargy, Denies malaise, Denies night sweats, Denies snoring and Denies weight loss Eyes Denies blurry vision and Denies itchy eyes ENT Denies nasal congestion, Denies post nasal drip, Denies sinus pain, Denies sinus pressure and Denies other ( Thrush) Card Denies chest pain, Denies pedal edema, Denies dyspnea, Denies orthopnea and Denies paroxysmal nocturnal dyspnea Resp Denies cough, Denies hemoptysis, Denies excessive phlegm production, Denies dysp leigh ann, Denies snoring and Denies wheezing GI Denies abdominal pain and Denies heartburn Musc Denies myalgias, Denies arthralgias and Denies joint swelling Skin/Breast Denies rash Neuro Denies memory loss and Denies seizure-like activity Psych Denies abnormal sleep pattern, Denies anxiety and Denies memory loss Endo Denies excessive sweating, Denies fatigue and Denies heat intolerance Peter/Lymph Denies easy bruising Aller/Immun Denies itchy eyes, Denies seasonal rhinorrhea and Denies wheezing Physical Exam Vital Signs: Last Vital Signs Pulse 102 H 10/15/23 13:59 BP 130/78 10/15/23 13:59 Pulse Ox 95 10/15/23 13:59 Oxygen Delivery Method Room Air 10/15/23 13:59 BMI result Body Mass Index 24.7 Const General: no acute distress and alert Nutritional Appearance: not obese Orientation/consciousness: Other orientation findings ( oriented) HEENT Head: Yes atraumatic Eyes General: appearance normal, both eyes and all related structures Sclerae: sclerae normal EOM: EOMs intact bilaterally Neck Neck: Yes supple Lymphatic: no lymphadenopathy noted Resp Effort & Inspection: normal respiratory effort and no use of accessory muscles Auscultation: clear to auscultation bilaterally Cardio Rate: regular rate Rhythm: regular rhythm Heart sounds: no gallops, no murmurs and no rubs Skin General skin exam: other ( warm) Extrem General: No clubbing, No cyanosis and No edema Assessment & Plan Assessment & Plan (1) ILD (interstitial lung disease): Code(s): J84.9 - Interstitial pulmonary disease, unspecified (2) H/O asbestosis: Comment: hx asbestosis exposure Code(s): Z87.09 - Personal history of other diseases of the respiratory system (3) Shortness of breath: Code(s): R06.02 - Shortness of breath Plan Results of CT chest reviewed, underlying mild basilar fibrosis. Minimally symptomatic. Will start on empiric bronchodilator therapy. Medications: New Anoro Ellipta 62.5-25 mcg/actuation (umeclidinium-vilanterol) 1 inh inhalation DAILY 1 ea 6RF 30 days NS Coding Level of Care Code Est Pt Level 4 (25909) Diagnoses ILD (interstitial lung disease) J84.9 H/O asbestosis Z87.09 Shortness of breath R06.02
[2023-10-15 13:59] VITALS: BP 130/78; PULSE 102; O2SAT 95; BMI 24.7
== END 2023-10-15 14:20 | disposition home or self-care (01) ==
PROVIDERS: PCP Nurse Practitioner Family; Visit Provider Internal Medicine Pulmonary Disease
DX: J84.9 Interstitial pulmonary disease, unspecified (principal); Z87.09 Personal history of other diseases of the respiratory system; R06.02 Shortness of breath
CPT/HCPCS: 99214

== ENCOUNTER → 2023-10-15 13:57 | Outpatient (BNVA) | payer MEDICARE, OTHER, SELFPAY | PROVIDERS: PCP Nurse Practitioner Family; Visit Provider Internal Medicine Pulmonary Disease | DX: J84.9 Interstitial pulmonary disease, unspecified (principal); R06.02 Shortness of breath; Z87.09 Personal history of other diseases of the respiratory system | CPT/HCPCS: 99212 ==

== ENCOUNTER 2023-11-02 15:48 | Outpatient (AMB) | payer MEDICARE, OTHER, SELFPAY ==
[2023-11-02 15:54] VITALS: BP 148/72; PULSE 95; O2SAT 96; BMI 24.1
--- NOTE | 2023-11-02 15:54 | MHC.PC.OV ---
Vital Signs 11/02/23 15:54 Height 5 ft 10 in Weight 168 lb 0.6 oz BMI 24.1 BP 148/72 H Blood Pressure Location Lt brachial Position Sitting Pulse 95 Pulse Source Pulse Oximeter Temp Source Skin Pulse Oximetry (%) 96 Oxygen Delivery Method Room Air Intake Visit Reasons: 3 Month F/U (HTN, hypercholestermia) Intake Note: Patient is here to follow up on 3 motnh f/u HTN Ordinary Seaman Required: No Allergies hydrochlorothiazide Adverse Reaction (Intermediate, Unverified 11/02/23 16:07) Hypotension Medication List - Last Reconciled 11/02/23 by Ifeoma Aragon MD albuterol sulfate 90 mcg/actuation 2 puffs inhalation Q4-6H PRN amlodipine 2.5 mg PO DAILY Anoro Ellipta 62.5-25 mcg/actuation (umeclidinium-vilanterol) 1 inh inhalation DAILY 30 days NS enalapril maleate 20 mg PO DAILY pantoprazole 40 mg PO QAM pravastatin 40 mg PO DAILY Tobacco use date assessed: 11/02/23 Fall risk assessment: No Falls in past year Last assessed Fall Risk: 11/02/23 Dental Screening Dental Screen Date: 11/02/23 HPI 3 Month F/U (HTN, hypercholestermia) HPI Details 78-year-old male with hypertension, hypercholesterolemia hyperthyroidism prostate cancer 1996 status post prostatectomy GERD chronic kidney disease interstitial lung disease last seen in June 2023 review of the notes has been seen by Pulmonary 10/16/2023 for the problem with breathing had a CT scan done showing mild basilar fibrosis advise empiric bronchodilator therapy with Anoro 1 inhalation once a day CT scan showing mild bronchiectasis left lower lobe small subpleural nodules in the right upper lobe and right lower lobe patient has also followed up with Nephrology diagnosis chronic kidney disease most likely hypoperfusion and combination of Aric inhibitor and hydrochlorothiazide leading to hypotension. Avoid hydrochlorothiazide.. Noted patient to complain about problems with breathing and did see the CT scan showing mild. With the patient having shortness of breath on exertion advised to try to workup the heart. [facility] Medical History (Updated 11/02/23 @ 16:34 by Ifeoma Aragon MD) Elevated fasting glucose Prostate cancer Lipid disorder Surgical History H/O colonoscopy History of right shoulder replacement H/O prostatectomy Family History Mother H/O mitral valve replacement Colon cancer Father Cirrhosis, alcoholic Social History (Updated 10/15/23 @ 14:04 by Maria Teresa Coates LPN) Household Members: Spouse Housing: House Alcohol intake: current Alcohol intake frequency: a few times a month Alcohol type: wine Patient Tobacco Use Status: Former Tobacco user Cigarette Packs Per Day: 1 Years Smoked: 10 e-Cigarette/Vaping Use: Never Used Second Hand Smoke Exposure: No service: No Current occupational status: retired Cognitive needs: No Hearing needs: No Vision needs: Yes Questionnaire Thrive Questionnaire Date Thrive assessed: 12/18/22 I am a: Patient What is your living situation today?: I have a steady place to live Within the past 12 months, did the food you bought not last and you didn't have the money to get more?: Never true Within the past 12 months, did you worry whether your food would run out before you got money to buy more?: Never true Do you have trouble paying for medicines?: No Do you have trouble getting transportation to medical appointments?: No Do you have trouble paying your heating and electricity bill?: No Do you have trouble taking care of your child, family member or friend?: No Do you have trouble with day-to-day activities such as bathing, preparing meals, shopping, managing finances, etc.?: No Are you currently unemployed and looking for a job?: No Are you interested in more education?: No Please select the resources that you would like help with: None Currently or been in a relationship where the following occur: no concerns reported THRIVE Score: 0 AUDIT C Alcohol Use Questionnaire (AUDIT-C) 1. How often do you have a drink containing alcohol?: Never Total Score: 0 GREGORY-7 AMB Questionnaire GREGORY-7 Date GREGORY - 7 assessed: 11/02/23 Source: Developed by Drs. Miguel Lindsey, Lorna Laczano, Romario Alberto and colleagues, with an educational rosas from [employer]. Physical exam (Primary Care) Vital Signs: Last Vital Signs Pulse 95 11/02/23 15:54 BP 148/72 H 03/25/24 15:54 Pulse Ox 96 11/02/23 15:54 Oxygen Delivery Method Room Air 11/02/23 15:54 BMI result Body Mass Index 24.1 Tobacco/Smoking Status: Tobacco use Status Tobacco use date assessed 11/02/23 11/02/23 15:56 Patient Tobacco Use Status Former Tobacco user 11/02/23 15:56 e-Cigarette/Vaping Use Never Used 11/02/23 15:56 Thrive Assessment: Date of Thrive Assessment Date Thrive assessed 12/18/22 11/02/23 15:56 Currently or been in a relationship where the following occur: no concerns reported Const General: alert; No acute distress Eyes Conjunctivae: conjunctivae normal Resp Auscultation: clear to auscultation bilaterally Cardio Rate: regular rate Rhythm: regular rhythm GI Inspection: Yes normal to inspection Extrem General: Yes normal to inspection and No edema Assessment and Plan Assessment & Plan (1) ILD (interstitial lung disease): Code(s): J84.9 - Interstitial pulmonary disease, unspecified Plan: Continue to follow-up with Pulmonary patient has been started on Anoro and to continue with albuterol as needed (2) CKD (chronic kidney disease): Code(s): N18.9 - Chronic kidney disease, unspecified Qualifiers: Chronic kidney disease stage 3 subtype: stage 3a (GFR 45-59) Plan: Keep well hydrated, avoid NSAIDs and will continue to monitor blood pressure (3) Impaired glucose tolerance: Code(s): R73.02 - Impaired glucose tolerance (oral) Plan: Decrease the amount of carbohydrate intake, pasta, bread, rice and potatoes are all sugar and that is aside from all the sweet stuff, remember that fruits are good but they are Sweet also. (4) GERD (gastroesophageal reflux disease): Code(s): K21.9 - Gastro-esophageal reflux disease without esophagitis Plan: Avoid the foods that causes that usually spicy foods, tomato products, juices, coffee, soda and foods that your sensitive to. After eating do not lie down, allow 3-4 hours before in lie down. And keep the head of bed above 30 degrees to avoid the acid from going up. (5) Hyperthyroidism: Code(s): E05.90 - Thyrotoxicosis, unspecified without thyrotoxic crisis or storm Plan: Patient follows up with endocrinology (6) Hypercholesteremia: Code(s): E78.00 - Pure hypercholesterolemia, unspecified Plan: Avoid fried foods, chicken skin, eggs, butter margarine, pastries and meat. Be it pork or beef they have a lot of cholesterol LDL goal of less than 130 and triglyceride of less than 150. On pravastatin 40 mg once a day (7) Hypertension, essential: Code(s): I10 - Essential (primary) hypertension Plan: Continue with blood pressure medication. Decrease salt intake and exercise on enalapril 20 mg once a day and amlodipine 2.5 mg once a day. Patient admits to taking amlodipine QOD- advisd to take QD (8) SOB (shortness of breath) on exertion: Code(s): R06.02 - Shortness of breath Plan: Discussed with the patient that the CT scan has showed only mild changes and concern about the shortness of breath on exertion. Advised to workup the heart. Orders: Orders CA stress test Today R06.02 - Shortness of breath Coding Level of Care Code Est Pt Level 4 (40563) Diagnoses ILD (interstitial lung disease) J84.9 CKD (chronic kidney disease) N18.9 Chronic kidney disease stage 3 subtype: stage 3a (GFR 45-59) Impaired glucose tolerance R73.02 GERD (gastroesophageal reflux disease) K21.9 Hyperthyroidism E05.90 Hypercholesteremia E78.00 Hypertension, essential I10 SOB (shortness of breath) on exertion R06.02
== END 2023-11-02 16:39 | disposition home or self-care (01) ==
PROVIDERS: PCP Nurse Practitioner Family; Visit Provider Internal Medicine
DX: J84.9 Interstitial pulmonary disease, unspecified (principal); I12.9 Hypertensive chronic kidney disease with stage 1 through stage 4 chronic kidney disease, or unspecified chronic kidney disease; N18.9 Chronic kidney disease, unspecified; R73.02 Impaired glucose tolerance (oral); K21.9 Gastro-esophageal reflux disease without esophagitis; E05.90 Thyrotoxicosis, unspecified without thyrotoxic crisis or storm; E78.00 Pure hypercholesterolemia, unspecified; R06.02 Shortness of breath
CPT/HCPCS: 99214

== ENCOUNTER → 2023-11-10 10:08 | Outpatient (REF) | payer MEDICARE, OTHER, SELFPAY ==
--- NOTE | 2023-11-10 10:10 | CA_ITS ---
Acquisition Time: 2023-11-10 10:29:11 Total Exercise Time: 00:04:00 Test Indications: SOB Medications: Protocol: STEVO Max HR: 137 BPM 96% of Pred: 142 BPM Max BP: 224/054 mmHG Max Work Load: 5.8 METS Exercise stress test with exercise 4 min of Stevo protocol, achieving 96% MPHR, 5.7 METs, with mild sob, no chest discomfort, with frequent isolated PACs, with baseline BP 162/72 and odalis to 224/54 with exercise, without EKG changes meeting criteria for ischemia. In recovery his sob resolved and BP returned to 148/64. He tells me he had not taken his am Amlodipine or enalapril. Instructed to take when he gets home. Test reviewed with Dr Benavidez Message sent to Dr Aragon with results. Referred By: Ifeoma Aragon Overread By: CUAUHTEMOC VAZQUEZ
== END ==
LOC: HO.CARD 10:08
PROVIDERS: PCP Nurse Practitioner Family; Visit Provider Internal Medicine
DX: R06.02 Shortness of breath (principal)
CPT/HCPCS: 93017

== ENCOUNTER → 2023-11-10 10:10 | Outpatient (BNV) | payer MEDICARE, OTHER, SELFPAY | PROVIDERS: PCP Nurse Practitioner Family; Visit Provider Nurse Practitioner Family | DX: R06.02 Shortness of breath (principal); I49.1 Atrial premature depolarization | CPT/HCPCS: 93016; 93018 ==

== ENCOUNTER 2023-12-08 07:29 | Outpatient (REF) | payer MEDICARE, OTHER, SELFPAY ==
[2023-12-08 08:40] LABS: Anion Gap 13 (12-20); Blood Urea Nitrogen 20 mg/dL (9-16); Calcium 9.4 mg/dL (8.4-10.2); Carbon Dioxide 22 mmol/L (22-29); Chloride 110 mmol/L (96-108); Estimated Glomerular Filt Rate 57; Potassium 4.1 mmol/L (3.3-5.1); Sodium 141 mmol/L (135-145)
== END 2023-12-08 07:30 | disposition home or self-care (01) ==
LOC: HO.LAB 07:29
PROVIDERS: PCP Internal Medicine; Visit Provider Internal Medicine Hypertension Specialist
DX: N18.9 Chronic kidney disease, unspecified (principal)
CPT/HCPCS: 36415; 80051; 82310; 82565; 84520

== ENCOUNTER 2023-12-10 10:55 | Outpatient (AMB) | payer MEDICARE, OTHER, SELFPAY ==
[2023-12-10 10:56] VITALS: BP 140/70; PULSE 90; O2SAT 96; BMI 24.5
--- NOTE | 2023-12-10 10:56 | HO.NEPHOV_ITS ---
Vital Signs 12/10/23 10:56 Height 5 ft 9 in Weight 166 lb BMI 24.5 BP 140/70 H Blood Pressure Location Lt brachial Position Sitting Pulse 90 Pulse Source Pulse Oximeter Pulse Oximetry (%) 96 Oxygen Delivery Method Room Air Intake Visit Reasons: December FU/ Confirmed [employer] Required: No Accompanied by: Self / Same As Patient Allergies hydrochlorothiazide Adverse Reaction (Intermediate, Verified 12/10/23 10:57) Hypotension HPI Comments Details: 77-year-old man with a longstanding history of hypertension which has been well controlled with enalapril. Recently hydrochlorothiazide 12.5 mg was added. Subsequently he developed lightheadedness and blood pressure dropped as low as 80 mm Hg systolic. Hydrochlorothiazide was discontinued. He monitors his blood pressure at home and systolic blood pressure is around 120-130 millimeter of mercury. Baseline creatinine is around 1.2-1.3 mg/dL as of 2020. In April 2023 creatinine bumped up to 1.59 widely was on enalapril 20 mg and hydrochlorothiazide 12.5 mg. No creatinine levels are available after discontinuation of hydrochlorothiazide. He has a history of a complex hepatic cyst and he is being followed by GI. Currently the plan is to monitor him. There was an incidental finding of a right renal cyst which has been documented as a simple cyst 12/10/23 Ray continues her shortness of breath on exertion year pulmonary function tests. He was given bronchodilators which did not help him. He was found to have some interstitial disease. Overall blood pressure seems to be well controlled [facility] Medical History (Updated 11/02/23 @ 18:52 by Ifeoma Aragon MD) Elevated fasting glucose Prostate cancer Lipid disorder Surgical History H/O colonoscopy History of right shoulder replacement H/O prostatectomy Family History Mother H/O mitral valve replacement Colon cancer Father Cirrhosis, alcoholic Social History Household Members: Spouse Housing: House Alcohol intake: current Alcohol intake frequency: a few times a month Alcohol type: wine Patient Tobacco Use Status: Former Tobacco user Cigarette Packs Per Day: 1 Years Smoked: 10 e-Cigarette/Vaping Use: Never Used Second Hand Smoke Exposure: No service: No Current occupational status: retired Cognitive needs: No Hearing needs: No Vision needs: Yes Physical Exam Vital Signs: Last Vital Signs Pulse 90 12/10/23 10:56 BP 140/70 H 12/10/23 10:56 Pulse Ox 96 12/10/23 10:56 Oxygen Delivery Method Room Air 12/10/23 10:56 BMI result Body Mass Index 24.5 Const General: comfortable Nutritional Appearance: well nourished Orientation/consciousness: patient oriented x3 HEENT Head: No normal to inspection Mouth: moist mucous membranes Neck Neck: Yes supple and Yes no JVD Resp Auscultation: clear to auscultation bilaterally, no rales and rub present Cardio Jugular venous distension: no JVD Palpation: no palpable S3 and no palpable S4 Heart sounds: no rubs GI Palpation (GI): Soft to palpation and nontender Percussion: No Fluid wave present General: Yes no CVA tenderness Back/Spine/Pelvis Back: no CVA tenderness Skin General skin exam: no rashes or lesions noted Neuro General: patient oriented x3 Extrem General: Yes no pedal edema and No clubbing Results Reviewed Nephrology Results: Sodium 141 mmol/L (135-145) 12/08/23 Potassium 4.1 mmol/L (3.3-5.1) 12/08/23 Chloride 110 mmol/L (96-108) H 12/08/23 Carbon Dioxide 22 mmol/L (22-29) 12/08/23 BUN 20 mg/dL (9-16) H 12/08/23 Creatinine 1.22 mg/dL (0.5-1.4) 12/08/23 Calcium 9.4 mg/dL (8.4-10.2) 12/08/23 Assessment & Plan Assessment & Plan (1) SOB (shortness of breath) on exertion: Code(s): R06.02 - Shortness of breath Category: Medical (2) Hypertension, essential: Code(s): I10 - Essential (primary) hypertension Category: Medical (3) CKD (chronic kidney disease): Code(s): N18.9 - Chronic kidney disease, unspecified Category: Medical Qualifiers: Chronic kidney disease stage 3 subtype: stage 3a (GFR 45-59) (4) SAMAN (acute kidney injury): Code(s): N17.9 - Acute kidney failure, unspecified Category: Medical Plan 77-year-old man with a h/o acute kidney injury superimposed on CKD. Acute kidney injury most likely due to hypoperfusion from a combination of GOPAL inhibitor and hydrochlorothiazide leading to hypotension. He has underlying chronic kidney disease most likely due to hypertensive nephrosclerosis. No evidence of obstruction based on the recent ultrasonogram. No reason to believe that is any active glomerular or interstitial disease at this time. Nevertheless we will rule that out. Renal function is back to baseline with creatinine 1.2. She will avoid using HCTZ for now. Blood pressure is better controlled No changes were made to his antihypertensive regimen I encouraged him to stay on a low-sodium diet. He should monitor his blood pressure at home. Complex hepatic cyst. Being followed by Gastroenterology. Simple right renal cyst. I do not think this needs further intervention at this time. Continues have shortness of breath and at his request we will refer him for cardiac evaluation as well . Orders: Orders Basic Metabolic Panel 4 Months Complete Blood Count no Diff 4 Months Referrals Cardiology Referral R06.02 - Shortness of breath Medications: Refilled amlodipine 2.5 mg PO DAILY 90 tabs 3RF Coding Level of Care Code New Pt Level 4 (82619) Diagnoses SOB (shortness of breath) on exertion R06.02 Hypertension, essential I10 CKD (chronic kidney disease) N18.9 Chronic kidney disease stage 3 subtype: stage 3a (GFR 45-59) SAMAN (acute kidney injury) N17.9
== END 2023-12-10 11:15 | disposition home or self-care (01) ==
LOC: HO.HKA 10:55
PROVIDERS: PCP Internal Medicine; Visit Provider Internal Medicine Hypertension Specialist
DX: N17.9 Acute kidney failure, unspecified (principal); I12.9 Hypertensive chronic kidney disease with stage 1 through stage 4 chronic kidney disease, or unspecified chronic kidney disease; N18.9 Chronic kidney disease, unspecified; R06.02 Shortness of breath
CPT/HCPCS: 99214

== ENCOUNTER → 2023-12-10 10:55 | Outpatient (BNVA) | payer MEDICARE, OTHER, SELFPAY | PROVIDERS: PCP Internal Medicine; Visit Provider Internal Medicine Hypertension Specialist | DX: I12.9 Hypertensive chronic kidney disease with stage 1 through stage 4 chronic kidney disease, or unspecified chronic kidney disease (principal); N18.9 Chronic kidney disease, unspecified; N17.9 Acute kidney failure, unspecified; R06.02 Shortness of breath | CPT/HCPCS: 99212 ==

== ENCOUNTER 2023-12-16 14:44 | Outpatient (AMB) | payer MEDICARE, OTHER, SELFPAY ==
[2023-12-16 14:56] VITALS: BP 130/62; PULSE 77; BMI 23.8
--- NOTE | 2023-12-16 14:56 | MHC.OFFVIS ---
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 He states that for the last few months, he has been noticing shortness of breath. When he is doing gentle walking he is okay but when he is exerting himself, he feels short of breath. He also gets some odd sensation in his chest but does not sound like clear-cut exertional angina. Otherwise, no history of any coronary artery disease or myocardial infarction or cardiomyopathy. [facility] Medical History (Updated 11/02/23 @ 18:52 by Ifeoma Aragon MD) Elevated fasting glucose Prostate cancer Lipid disorder Surgical History H/O colonoscopy History of right shoulder replacement H/O prostatectomy Family History Mother H/O mitral valve replacement Colon cancer Father Cirrhosis, alcoholic Social History Household Members: Spouse Housing: House Alcohol intake: current Alcohol intake frequency: a few times a month Alcohol type: wine Patient Tobacco Use Status: Former Tobacco user Cigarette Packs Per Day: 1 Years Smoked: 10 e-Cigarette/Vaping Use: Never Used Second Hand Smoke Exposure: No service: No Current occupational status: retired Cognitive needs: No Hearing needs: No Vision needs: Yes Review of Systems Const Denies chills, Denies fatigue, Denies fever(s), Denies frequent falls, Denies weakness, Denies weight gain and Denies weight loss ENT Denies dizziness Card Denies chest pain, Denies leg edema, Denies lightheadedness, Denies palpitations, Denies dyspnea, Denies dyspnea on exertion and Denies orthopnea Resp Denies cough, Denies dyspnea and Denies dyspnea on exertion GI Denies bloating and Denies change in bowel habits Musc Denies muscle weakness, Denies numbness and Denies tingling Neuro Denies dizziness, Denies frequent falls, Denies numbness, Denies tingling and Denies weakness Endo Denies fatigue and Denies palpitations Physical Exam Vital Signs: Last Vital Signs Pulse 77 12/16/23 14:56 BP 130/62 12/16/23 14:56 BMI result Body Mass Index 23.8 Const General: comfortable and no acute distress Orientation/consciousness: patient oriented x3 HEENT Other: Unremarkable Head: Yes normal to inspection Neck Neck: Yes normal visual inspection Chest Chest palpation & inspection: normal inspection of the chest Resp Auscultation: clear to auscultation bilaterally Cardio Palpation: normal PMI Heart sounds: S1 normal heart sound present, S2 normal heart sound present, no gallops, no murmurs and no rubs GI Palpation (GI): Soft to palpation Back/Spine/Pelvis Other: unremarkable Skin General skin exam: no rashes or lesions noted Neuro General: patient oriented x3 Extrem General: Yes normal to inspection Psych Mental Status: mental status grossly normal Office Procedures EKG Details: EKG with sinus rhythm at 77/Min; voltage criteria for LVH; leftward axis; [place] [id number], Complete Assessment & Plan Assessment & Plan (1) SOB (shortness of breath) on exertion: Code(s): R06.02 - Shortness of breath Category: Medical (2) Hypertension, essential: Code(s): I10 - Essential (primary) hypertension Category: Medical Plan Available data reviewed. EKG, as above shows sinus rhythm with left ventricular hypertrophy. In the stress test, he was able to exercise for 4 minutes and developed some shortness of breath, frequent PACs and had a hypertensive blood pressure response. No EKG evidence of ischemia. It seems he did not take his blood pressure medications that day. In the CT chest, mild bronchiectasis in the left lower lobe. Mild prominence of right main pulmonary artery. Mild coronary artery calcifications. Overall, exertional shortness of breath for evaluation. Could be from some combination of cardiac and pulmonary etiologies. Will get an echocardiogram for cardiac function assessment. Repeat stress test to include perfusion imaging. Preferably, exercise stress testing but may take his blood pressure medications prior to coming. If still gets hypertensive response and need to stop prematurely, then may do Lexiscan. Orders: Orders CA echo transthoracic complete Today R06.02 - Shortness of breath NM cardiolite stress test Today R06.02 - Shortness of breath, R07.2 - Precordial pain CA stress test Today R06.02 - Shortness of breath, R07.2 - Precordial pain Coding Level of Care Code New Pt Level 4 (53157) Diagnoses SOB (shortness of breath) on exertion R06.02 Hypertension, essential I10 CPT Codes EKG - CPT: 05166-[id number], Complete ([id number])
== END 2023-12-16 15:27 | disposition home or self-care (01) ==
PROVIDERS: PCP Internal Medicine; Visit Provider Internal Medicine
DX: R06.02 Shortness of breath (principal); I10 Essential (primary) hypertension
CPT/HCPCS: 93010; 99204

== ENCOUNTER → 2023-12-16 14:44 | Outpatient (BNVA) | payer MEDICARE, OTHER, SELFPAY | PROVIDERS: PCP Internal Medicine; Visit Provider Internal Medicine | DX: R07.2 Precordial pain (principal); R06.02 Shortness of breath; I20.9 Angina pectoris, unspecified | CPT/HCPCS: 93005; 99202 ==

== ENCOUNTER → 2024-01-28 07:45 | Outpatient (REF) | payer MEDICARE, OTHER, SELFPAY ==
--- NOTE | ~2024-01-28 | NM_ITS ---
Exercise Myocardial perfusion study Indication: Precordial pain to evaluate for myocardial ischemia Technique: The patient was brought in for an exercise perfusion study on 01/28/2024. Patient performed exercise as per Stevo protocol and was injected 25 mCi of sestamibi was given intravenously one target HR was achieved. Images were obtained using the SPECT gamma camera interlaced with the gating device. Images were obtained in supine position. Resting perfusion study was performed on 01/29/2024. Patient was administered 25 mCi of sestamibi intravenously at rest. Images were then obtained in supine position. Images obtained with and without CT attenuation. Total DLP 170 mGy-cm. Images were processed with the software and compared side to side in short axis, horizontal long axis and vertical long axis views. Findings: The stress perfusion study showed non attenuated images show mild intensity the use uptake in the distal lateral wall of the LV myocardium. Attenuated corrected images show overall normal uptake in all segments of LV myocardium.. The gated study shows normal LV systolic function with calculated LVEF of 53%. LV cavity is normal in size. The gated study shows normal systolic wall thickening and contraction of all segments. There is no transient ischemic dilation. Resting study shows no change in perfusion pattern compared to stress perfusion study. Gating at rest reveals normal systolic wall motion with ejection fraction at 49%. The findings are consistent with likely normal myocardial perfusion. NM/NM cardiolite stress test Impression: 1. Normal myocardial perfusion 2. Gated LVEF is 53% 3. Transient ischemic dilatation not present Stress EKG is negative for ischemia
--- NOTE | 2024-01-28 07:47 | CA_ITS ---
Transthoracic Echocardiogram Patient (Last, First, Middle): Reji Velazco F Gender: Male Date of : 1945 Age: 78 Procedure Date: 01/28/2024 Procedure Type: Transthoracic Echocardiogram Location: OP Height: 175.26 cm Weight: 79.38 kg BSA: 1.95 m2 Heart Rate: 63 bpm BP: 140 / 78 mmHg Night Assistant: TO Referring MD: Jesús Wyatt MD Roving Machine Operator: Kalen Benavidez MD Symptoms: R06.02 - Shortness of breath Study Quality: Adequate w/Contrast ECG Rhythm: Sinus Conclusions: - 1. Normal LV ejection fraction of 60 65% with mild asymmetric septal hypertrophy with grade 1 diastolic dysfunction 2. Normal cardiac valvular Dopplers with mild fibrocalcific changes of the aortic valve and mild mitral calcification 3. No gross pericardial effusion Findings Procedure Information Contrast agent, definity, is being given per protocol without apparent complications. Left Ventricle Normal left ventricular size, thickness, and systolic function. The visually estimated ejection fraction is between 60-65%. Spectral Doppler is indicative of an impaired relaxation filling pattern. E/E prime ratio is <8, consistent with normal filling pressures. There is mild septal asymmetric hypertrophy. Right Ventricle Normal right ventricular cavity size and systolic function. Atria Both atria are normal in size. Interatrial shunt cannot be excluded. Aortic Valve There is mild calcification of the aortic valve. There is no aortic valve stenosis. There is no aortic valve regurgitation. Mitral Valve There is mild anterior and posterior mitral leaflet thickening. There is mild mitral annular calcification. There is trace mitral valve regurgitation. There is no mitral valve stenosis. Pulmonic Valve The pulmonic valve is likely normal. Tricuspid Valve Likely normal tricuspid valve structure and function. Tricuspid regurgitation envelope is inadequate for calculation of right ventricular systolic pressure. Normal right atrial pressure. There is no evidence of pulmonary hypertension. Great Vessels All visible segments of the aorta are normal in size. The pulmonary artery was not well visualized. There is no dilatation of the ascending aorta measuring 3.40 cm. Small plaque is seen in the sino tubular ridge. Venous The inferior vena cava is normal in size and collapses greater than 50% with inspiration. Pericardium/Pleural There is no evidence of pericardial effusion. Prior Study Comparison no previous study in the last 5 years for comparison Measurements 2D Linear Measurements IVSd: 1.31 0.6-0.9/0.6-1.0 cm LVIDd: 3.34 3.9-5.3/4.2-5.9 cm LVIDd Index: 1.71 2.4-3.2/2.2-3.1 cm/m2 LVIDs: 2.03 2.0-3.6 cm LVPWd: 0.84 0.7-1.1 cm LA Diam: 2.40 2.7-3.8/3.0-4.0 cm LAIDs Index: 1.23 1.5-2.3 cm/m2 LV Mass: 133.24 67-162/88-224 g LV Mass Index: 68.33 43-95/49-115 g/m2 LVOT Diam: 2.10 3.0+(-)1.3 cm 2D Systolic Function EF 4C: 63.00 >55% EF 2C: 58.90 >55% EF BiP: 61.90 >55% Mitral Valve MV Pk E: 0.58 MV PK A: 0.74 MV Decel Time: 268.00 E/A: 0.80 E'Lateral: 7.51 E'Medial: 4.68 E/E' Med: 12.40 E/E' Lat: 7.70 PHT: 79.00 MVA PHT: 2.78 Decel [place]: 2.16 Aortic Valve AoV Pk Cesar: 1.12 AoV Mn Cesar: 0.74 AoV VTI: 0.23 AoV Pk Grad: 5.00 Aov Mn Grad: 2.00 SHEREEN Cont.VTI: 3.24 LVOT LVOT Pk Cesar: 0.99 LVOT Mn Cesar: 0.68 LVOT VTI: 0.22 LVOT Pk Grad: 4.00 LVOT Mn Grad: 2.00 LVOT Diam: 2.10 LVOT Area: 3.46 Diastolic Function MV Pk E: 0.58 MV Pk A: 0.74 E/A: 0.80 E'Medial: 4.68 E/E' Med: 12.40 E' Laterial: 7.51 E/E' Lat: 7.70 Right Ventricle TAPSE (mm): 21.70 TVS' Cesar: 10.40 Tricuspid Valve RA Press: 3.00 Great Vessels Aorta Sinus of Valsalva: 3.82 2.0-3.[address] [place]: 2.87 1.7-3.4 cm Ao Asc: 3.40 2.1-3.4 cm Updated in Other Vendor System with Status of Final Kalen Benavidez MD electronically signed on 01/28/2024 4:12:18 PM with status of Final
--- NOTE | 2024-01-28 07:47 | CA_ITS ---
Acquisition Time: 2024-01-28 08:59:59 Total Exercise Time: 00:05:00 Test Indications: CP, SOB Medications: SEE H Protocol: SHERRY Max HR: 129 BPM 90% of Pred: 142 BPM Max BP: 148/074 mmHG Max Work Load: 7.0 METS Exercise stress test with exercise 5 min of Sherry protocol achieving 90% MPHR, with mild sob and fatigue, no chest discomfort, with isolated PVCs, with normotensive response to exercise ( took his am antihypertensives), without EKG changes meeting criteria for ischemia. Nuclear images pending. Test reviewed with Dr Robbins Referred By: Jesús Wyatt Overread By: CUAUHTEMOC VAZQUEZ
== END ==
LOC: HO.CARD 07:45
PROVIDERS: PCP Internal Medicine; Visit Provider Internal Medicine
DX: R06.02 Shortness of breath (principal); R07.2 Precordial pain
CPT/HCPCS: 78452; 93017; 93306; A9500; Q9957

== ENCOUNTER → 2024-01-28 07:47 | Outpatient (BNV) | payer MEDICARE, OTHER, SELFPAY | PROVIDERS: PCP Internal Medicine; Visit Provider Internal Medicine Cardiovascular Disease | DX: R07.2 Precordial pain (principal) | CPT/HCPCS: 78452; 93016; 93018; 93320; 93325; 93350; 93352 ==

== ENCOUNTER 2024-02-02 13:31 | Outpatient (AMB) | payer MEDICARE, OTHER, SELFPAY ==
[2024-02-02 13:34] VITALS: BP 124/62; PULSE 87; BMI 24.0
--- NOTE | 2024-02-02 13:34 | MHC.OFFVIS ---
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 Allergies hydrochlorothiazide Adverse Reaction (Intermediate, Verified 02/02/24 13:37) Hypotension Medication List - Last Reconciled 02/02/24 by Arcelia Urrutia, SARTHAK-C amlodipine 2.5 mg PO DAILY Anoro Ellipta 62.5-25 mcg/actuation (umeclidinium-vilanterol) 1 inh inhalation DAILY 30 days NS enalapril maleate 20 mg PO DAILY methimazole 30 mg PO DAILY pantoprazole 40 mg PO QAM pravastatin 40 mg PO DAILY HPI HPI f/u after testing: Details: Reji is a 78-year-old male with past medical history of hypertension, hyperlipidemia, chronic kidney disease, impaired glucose tolerance who has recently undergone cardiac evaluation for symptom of shortness of breath with exertion. He had an echocardiogram and nuclear stress test and now presents for follow-up. Today he reports that he does have some mild shortness of breath when he over exerts. Denies any concerning shortness of breath with normal ADLs. He has no chest discomfort at rest or with activity. No PND, orthopnea or edema. No palpitations, lightheadedness, presyncope, syncope, falls. Takes his meds as directed. Walks on the treadmill for 20 minutes at a speed of 3.2 mph 5 times a week and tolerates it well. [facility] Medical History Elevated fasting glucose Prostate cancer Lipid disorder Surgical History H/O colonoscopy History of right shoulder replacement H/O prostatectomy Family History Mother H/O mitral valve replacement Colon cancer Father Cirrhosis, alcoholic Social History Household Members: Spouse Housing: House Alcohol intake: current Alcohol intake frequency: a few times a month Alcohol type: wine Patient Tobacco Use Status: Former Tobacco user Cigarette Packs Per Day: 1 Years Smoked: 10 e-Cigarette/Vaping Use: Never Used Second Hand Smoke Exposure: No service: No Current occupational status: retired Cognitive needs: No Hearing needs: No Vision needs: Yes Review of Systems Const All systems reviewed & are unremarkable except as noted in HPI and below ENT Denies dizziness Card Denies chest pain, Denies chest pain at rest, Denies chest pain with activity, Denies rapid heart rate, Denies pedal edema, Denies edema, Denies leg edema, Denies lightheadedness, Denies palpitations, Denies dyspnea, Reports dyspnea on exertion and Denies orthopnea Resp Denies cough, Denies dyspnea and Reports dyspnea on exertion GI Denies hematochezia and Denies change in stool character Musc Denies abnormal gait, Denies limited range of motion, Denies muscle cramps, Denies muscle weakness, Denies numbness, Denies radiating pain into limb, Denies stiffness and Denies tingling Neuro Denies abnormal gait, Denies dizziness, Denies numbness and Denies tingling Endo Denies palpitations Physical Exam Vital Signs: Last Vital Signs Pulse 87 02/02/24 13:34 BP 124/62 02/02/24 13:34 BMI result Body Mass Index 24.0 Const General: cooperative, healthy appearing, comfortable and no acute distress Orientation/consciousness: patient oriented x3 Neck Neck: Yes normal visual inspection and Yes no JVD Resp Effort & Inspection: normal respiratory effort Auscultation: clear to auscultation bilaterally, no crackles, no rales, no rhonchi and no wheezes Cardio Jugular venous distension: no JVD Rate: regular rate Rhythm: regular rhythm Heart sounds: S1 normal heart sound present, S2 normal heart sound present, no gallops, no murmurs and no rubs Neuro General: patient oriented x3 Extrem General: Yes normal to inspection, No no pedal edema and No calf tenderness Psych Appearance: grossly normal Mental Status: mental status grossly normal Speech and movement: Normal speech and movement present Assessment & Plan Assessment & Plan (1) SOB (shortness of breath) on exertion: Code(s): R06.02 - Shortness of breath Category: Medical Plan: Report of shortness of breath with exertional activities. He denies shortness of breath with normal ADLs. EKG done on last visit shows normal sinus rhythm, left axis deviation, moderate voltage criteria for LVH versus normal variant, rate 77. An exercise stress test was done on 11/10/2023 with exercise 4 minutes and hypertensive response to exercise with blood pressure 224/54. He had not taken his a.m. meds prior to the test. He did not have EKG changes that day. He was then scheduled for an exercise nuclear stress test for further evaluation. Test was done on 01/28/2024 with exercise 5 minutes, normal blood pressure response, no EKG changes and normal myocardial perfusion imaging. He did take his blood pressure meds prior to that test. An echocardiogram done 01/28/2024 showed EF 60-65%, mild asymmetric septal hypertrophy, grade 1 diastolic dysfunction, no valve abnormalities. Test results reviewed with him in detail. He has diastolic dysfunction however no signs of fluid overload on examination. No clear cardiac causes for his shortness of breath have been identified. His health history includes a diagnosis of interstitial lung disease. His shortness of breath is most likely pulmonary related and may be in combination with some mild deconditioning. Continue to exercise as tolerated. Signs and symptoms of angina reviewed with him. Instructed to call this office if he has increasing shortness of breath or any new chest discomfort. Cardiology follow-up for re-evaluation in 1 year, sooner if needed. (2) Hypertension, essential: Code(s): I10 - Essential (primary) hypertension Category: Medical Plan: Well controlled at this time. No med changes made. Continue amlodipine and enalapril. (3) Hypercholesteremia: Code(s): E78.00 - Pure hypercholesterolemia, unspecified Category: Medical Plan: [place] LDL goal less than 100. Continue pravastatin. (4) Abnormal echocardiogram findings without diagnosis: Code(s): R93.1 - Abnormal findings on diagnostic imaging of heart and coronary circulation Category: Medical Plan: Echo as above with mild asymmetric septal hypertrophy and grade 1 diastolic dysfunction. Plan Time spent on chart review, documentation, interview and assessment Coding Level of Care Code Est Pt Level 3 (27221) Diagnoses SOB (shortness of breath) on exertion R06.02 Hypertension, essential I10 Hypercholesteremia E78.00 Abnormal echocardiogram findings without diagnosis R93.1 Time Spent (min) 24
== END 2024-02-02 14:11 | disposition home or self-care (01) ==
PROVIDERS: PCP Internal Medicine; Visit Provider Nurse Practitioner Family
DX: R06.02 Shortness of breath (principal); I10 Essential (primary) hypertension; E78.00 Pure hypercholesterolemia, unspecified; R93.1 Abnormal findings on diagnostic imaging of heart and coronary circulation
CPT/HCPCS: 99213

== ENCOUNTER → 2024-02-02 13:31 | Outpatient (BNVA) | payer MEDICARE, OTHER, SELFPAY | PROVIDERS: PCP Internal Medicine; Visit Provider Nurse Practitioner Family | DX: R06.02 Shortness of breath (principal); I10 Essential (primary) hypertension; E78.00 Pure hypercholesterolemia, unspecified; R93.1 Abnormal findings on diagnostic imaging of heart and coronary circulation | CPT/HCPCS: 99212 ==

== ENCOUNTER 2024-04-07 13:38 | Outpatient (AMB) | payer MEDICARE, OTHER, SELFPAY ==
[2024-04-07 13:41] VITALS: BP 150/72; PULSE 84; O2SAT 97; BMI 24.5
--- NOTE | 2024-04-07 13:41 | MHC.PC.OV ---
Vital Signs 04/07/24 13:41 Height 5 ft 10 in Weight 171 lb BMI 24.5 BP 150/72 H Blood Pressure Location Lt brachial Position Sitting Pulse 84 Pulse Source Pulse Oximeter Pulse Oximetry (%) 97 Oxygen Delivery Method Room Air Intake Visit Reasons: Annual exam Allergies hydrochlorothiazide Adverse Reaction (Intermediate, Verified 04/07/24 13:41) Hypotension Medication List - Last Reconciled 04/07/24 by Ifeoma Aragon MD amlodipine 2.5 mg PO DAILY Anoro Ellipta 62.5-25 mcg/actuation (umeclidinium-vilanterol) 1 inh inhalation DAILY 30 days NS enalapril maleate 20 mg PO DAILY pantoprazole 40 mg PO QAM pravastatin 40 mg PO DAILY Tobacco use date assessed: 11/02/23 Fall risk assessment: No Falls in past year Last assessed Fall Risk: 04/07/24 Dental Screening Dental Screen Date: 04/07/24 Did you have a dental visit in the last 12 months?: Yes Did you have a dental problem in the last 6 months where you did not have access to dental care?: No Was dental information given to patient?: Patient has dentist HPI Annual exam HPI Details 78-year-old male with interstitial lung disease chronic kidney disease impaired glucose tolerance GERD hypothyroidism hypercholesterolemia hypertension last seen in 10/28/2023 patient is here for physical exam. Review of the notes was seen by Endocrinology for Graves disease with hyperthyroidism February 2024 has had radioactive iodine ablation in January 2024 advised to retest his thyroid in 6 weeks. Patient also follows up with Cardiology normal myocardial perfusion imaging echocardiogram in January 2024 ejection fraction of 60-65% mild asymmetric septal hypertrophy grade 1 diastolic dysfunction no valve abnormalities. Most likely pulmonary as cause of shortness of breath. Patient also follows up with Nephrology has had kidney injury most likely hypoperfusion combination of Aric inhibitor and hydrochlorothiazide chronic kidney disease most likely due to hypertensive nephrosclerosis avoid using HCTZ PFSH Medical History Elevated fasting glucose Prostate cancer Lipid disorder Surgical History H/O colonoscopy History of right shoulder replacement H/O prostatectomy Family History Mother H/O mitral valve replacement Colon cancer Father Cirrhosis, alcoholic Social History (Updated 04/07/24 @ 14:24 by Ifeoma Aragon MD) Household Members: Spouse Housing: House Alcohol intake: current Alcohol intake frequency: a few times a month Alcohol type: wine Comment: 2x a week 2 glasses Patient Tobacco Use Status: Former Tobacco user Tobacco use type: Cigarette Cigarette Packs Per Day: 1 Years Smoked: stopped 20 years old e-Cigarette/Vaping Use: Never Used Second Hand Smoke Exposure: Yes service: No Current occupational status: retired Cognitive needs: No Hearing needs: No Vision needs: Yes Questionnaire PHQ-9 Over the last 2 weeks, how often have you been bothered by any of the following problems? 1. Little interest or pleasure in doing things: not at all 2. Feeling down, depressed, or hopeless: not at all 3. Trouble falling or staying asleep, or sleeping too much: not at all 4. Feeling tired or having little energy: not at all 5. Poor appetite or overeating: not at all 6. Feeling bad about yourself - or that you are a failure or have let yourself or your family down: not at all 7. Trouble concentrating on things, such as reading the newspaper or watching television: not at all 8. Moving or speaking so slowly that other people could have noticed. Or the opposite - being so fidgety or restless that you have been moving around a lot more than usual: not at all 9. Thoughts that you would be better off or of hurting yourself in some way: not at all Total score: 0 Depression Screening Interpretation: Negative Depression Screening Done: Yes 76859 - PHQ-9 Billing: Yes Source: Developed by Drs. Miguel Lindsey, Lorna Lazcano, Romario Alberto and colleagues, with an educational rosas from [employer]. Thrive Questionnaire Date Thrive assessed: 04/07/24 I am a: Patient What is your living situation today?: I have a steady place to live Within the past 12 months, did the food you bought not last and you didn't have the money to get more?: Never true Within the past 12 months, did you worry whether your food would run out before you got money to buy more?: Never true Do you have trouble paying for medicines?: No Do you have trouble getting transportation to medical appointments?: No Do you have trouble paying your heating and electricity bill?: No Do you have trouble taking care of your child, family member or friend?: No Do you have trouble with day-to-day activities such as bathing, preparing meals, shopping, managing finances, etc.?: No Are you currently unemployed and looking for a job?: No Are you interested in more education?: No Please select the resources that you would like help with: None Currently or been in a relationship where the following occur: No concerns reported THRIVE Score: 0 AUDIT C Alcohol Use Questionnaire (AUDIT-C) 1. How often do you have a drink containing alcohol?: 2-4 times a month 2. How many drinks containing alcohol do you have on a typical day when you are drinking?: 1 or 2 3. How often do you have six or more drinks on one occasion?: Never Total Score: 2 GREGORY-7 AMB Questionnaire GREGORY-7 Date GREGORY - 7 assessed: 04/07/24 Feeling nervous, anxious, or on edge: 0 = Not at all Not being able to stop or control worryin = Not at all Worrying too much about different things: 0 = Not at all Trouble relaxin = Not at all Being so restless that it is hard to sit still: 0 = Not at all Becoming easily annoyed or irritable: 0 = Not at all Feeling afraid as if something awful might happen: 0 = Not at all Total GREGORY-7 score (0-4 normal; 5-9 mild; 10-14 moderate; 15-21 severe): 0 Source: Developed by Drs. Miguel Lindsey, Lorna Lazcano, Romario Alberto and colleagues, with an educational rosas from [employer]. Review of Systems Const Denies poor appetite and Denies weakness Eyes Denies no additional complaints ENT Reports Normal hearing present, Denies dizziness, Denies nasal congestion, Denies tinnitus and Denies sore throat Card Denies chest pain, Denies syncope, Denies rapid heart rate and Denies dyspnea Resp Denies cough and Denies dyspnea GI Denies change in stool character, Reports constipation, Denies diarrhea, Denies nausea and Denies vomiting Denies dysuria and Denies urinary frequency Neuro Reports Normal hearing present, Denies confusion, Denies dizziness, Denies syncope and Denies weakness Psych Denies confusion Physical exam (Primary Care) Vital Signs: Last Vital Signs Pulse 84 04/07/24 13:41 BP 150/72 H 04/07/24 13:41 Pulse Ox 97 04/07/24 13:41 Oxygen Delivery Method Room Air 04/07/24 13:41 BMI result Body Mass Index 24.5 Tobacco/Smoking Status: Tobacco use Status Tobacco use date assessed 11/02/23 04/07/24 13:41 Patient Tobacco Use Status Former Tobacco user 04/07/24 13:41 Tobacco use type Cigarette 04/07/24 13:46 e-Cigarette/Vaping Use Never Used 04/07/24 13:41 PHQ-9: PHQ-9 Score PHQ-9: Total score 0 04/07/24 13:46 Depression Screening Interpretation: Negative Thrive Assessment: Date of Thrive Assessment Date Thrive assessed 04/07/24 04/07/24 13:46 Currently or been in a relationship where the following occur: No concerns reported Const General: No confusion Orientation/consciousness: No confusion HENMT Other: Impacted cerumen R igth Head: Yes normocephalic Ears: external ears normal Face and sinus: Yes normal facial exam Mouth: moist mucous membranes Throat: Yes tonsils normal Eyes Conjunctivae: conjunctivae normal Pupils: Equal, round and reactive pupils present and Pupil accommodation reflex normal Direct Ophthalmoscopy: normal light reflex Neck Neck: No lymphadenopathy Thyroid: Thyroid normal Chest Chest palpation & inspection: normal inspection of the chest Resp Effort & Inspection: normal respiratory effort and no audible wheezes Auscultation: clear to auscultation bilaterally, no crackles, no wheezes and lung sounds not diminished Cardio Rate: regular rate Rhythm: regular rhythm Peripheral pulses: radial pulses present and dorsalis pedis present GI Other: Negative guaiac no prostate Palpation (GI): no masses Auscultation: normal bowel sounds and normoactive bowel sounds Skin General skin exam: no rashes or lesions noted Rashes: no rashes Neuro General: No confusion Cranial nerves: Yes Equal, round and reactive pupils present and Yes Normal hearing present Cognition (Neuro): normal cognition Gait exam (Neuro): Normal gait present Motor exam (neuro): 5/5 motor strength present throughout Deep tendon reflexes (DTR's): Right brachioradialis reflex intensity grade: 2+, Left brachioradialis reflex intensity grade: 2+, Right patellar reflex intensity grade: 2+ and Left patellar reflex intensity grade: 2+ Extrem General: No edema Assessment and Plan Assessment & Plan (1) Annual physical exam: Code(s): Z00.00 - Encounter for general adult medical examination without abnormal findings Plan: Patient is advised to eat healthy, keep well hydrated, keep active and have adequate sleep. (2) Hyperthyroidism: Comment: Graves disease post RA I endocrinology, January 2024 Code(s): E05.90 - Thyrotoxicosis, unspecified without thyrotoxic crisis or storm Plan: Patient continues to be followed up by Endocrinology and advised to retest thyroid function tests. Status post radioactive iodine treatment January 2024 (3) Impaired glucose tolerance: Code(s): R73.02 - Impaired glucose tolerance (oral) Plan: Decrease the amount of carbohydrate intake, pasta, bread, rice and potatoes are all sugar and that is aside from all the sweet stuff, remember that fruits are good but they are Sweet also. (4) ILD (interstitial lung disease): Code(s): J84.9 - Interstitial pulmonary disease, unspecified Plan: Continuing with the inhalers Anoro. (5) CKD (chronic kidney disease): Code(s): N18.9 - Chronic kidney disease, unspecified Qualifiers: Chronic kidney disease stage 3 subtype: stage 3a (GFR 45-59) Plan: Keep well hydrated avoid NSAIDs no more hydrochlorothiazide (6) GERD (gastroesophageal reflux disease): Code(s): K21.9 - Gastro-esophageal reflux disease without esophagitis Plan: Avoid the foods that causes that usually spicy foods, tomato products, juices, coffee, soda and foods that your sensitive to. After eating do not lie down, allow 3-4 hours before in lie down. And keep the head of bed above 30 degrees to avoid the acid from going up. (7) Hypercholesteremia: Code(s): E78.00 - Pure hypercholesterolemia, unspecified Plan: Avoid fried foods, chicken skin, eggs, butter margarine, pastries and meat. Be it pork or beef they have a lot of cholesterol LDL goal of less than 100 triglyceride of less than 150 (8) Hypertension, essential: Code(s): I10 - Essential (primary) hypertension Plan: Continue with blood pressure medication. Decrease salt intake and exercise on enalapril 20 mg once a day. (9) Impacted cerumen of right ear: Code(s): H61.21 - Impacted cerumen, right ear Plan: will need irrigatiion Orders: Orders Complete Blood Count Auto Diff Today E78.00 - Pure hypercholesterolemia, unspecified Thyroid Stimulating Hormone Today E78.00 - Pure hypercholesterolemia, unspecified Vitamin B12 and Folate Today E78.00 - Pure hypercholesterolemia, unspecified Free T4 (Free Thyroxine) 2 Months R73.02 - Impaired glucose tolerance (oral) Comprehensive Met. Panel Today E78.00 - Pure hypercholesterolemia, unspecified Free T4 (Free Thyroxine) Today E78.00 - Pure hypercholesterolemia, unspecified Lipid Panel Today E78.00 - Pure hypercholesterolemia, unspecified Prostate Specific Antigen Scr Today E78.00 - Pure hypercholesterolemia, unspecified Hemoglobin A1c 2 Months R73.02 - Impaired glucose tolerance (oral) Medications: Refilled pravastatin 40 mg PO DAILY 90 tabs 3RF R73.02 - Impaired glucose tolerance (oral) enalapril maleate 20 mg PO DAILY 90 tabs 3RF I10 - Essential (primary) hypertension Coding Level of Care Code Est Pt Prev Care >65y(12250) Diagnoses Annual physical exam Z00.00 Hyperthyroidism E05.90 Impaired glucose tolerance R73.02 ILD (interstitial lung disease) J84.9 CKD (chronic kidney disease) N18.9 Chronic kidney disease stage 3 subtype: stage 3a (GFR 45-59) GERD (gastroesophageal reflux disease) K21.9 Hypercholesteremia E78.00 Hypertension, essential I10 Impacted cerumen of right ear H61.21
== END 2024-04-07 14:42 | disposition home or self-care (01) ==
PROVIDERS: PCP Nurse Practitioner Family; Visit Provider Internal Medicine
DX: Z00.00 Encounter for general adult medical examination without abnormal findings (principal); I12.9 Hypertensive chronic kidney disease with stage 1 through stage 4 chronic kidney disease, or unspecified chronic kidney disease; N18.9 Chronic kidney disease, unspecified; J84.9 Interstitial pulmonary disease, unspecified; E05.90 Thyrotoxicosis, unspecified without thyrotoxic crisis or storm; R73.02 Impaired glucose tolerance (oral); K21.9 Gastro-esophageal reflux disease without esophagitis; E78.00 Pure hypercholesterolemia, unspecified; H61.21 Impacted cerumen, right ear
CPT/HCPCS: 99397

== ENCOUNTER 2024-04-15 13:22 | Outpatient (AMB) | payer MEDICARE, OTHER, SELFPAY ==
--- NOTE | 2024-04-15 13:25 | A.OFFVIS_ITS ---
Vital Signs 04/15/24 13:26 Height 5 ft 10 in Weight 173 lb 1.006 oz BMI 24.8 BP 118/62 Blood Pressure Location Rt brachial Position Sitting Pulse 94 Pulse Source Doppler Pulse Oximetry (%) 97 Oxygen Delivery Method Room Air Intake Visit Reasons: Shortness of breath Allergies hydrochlorothiazide Adverse Reaction (Intermediate, Verified 04/07/24 13:41) Hypotension HPI HPI Shortness of breath: Details: 77-year-old gentleman, nonsmoker, referred for evaluation of intermittent d yspnea on exertion with underlying mild pulmonary fibrosis. After the last office visit patient was tried on Anoro, however he does not think that he has any significant benefit from it. He denies recent exacerbations. Patient's does states that he restarted exercise program in can do at least 20 minutes on treadmill at significant incline, unless his knee bothers him. [facility] Medical History Elevated fasting glucose Prostate cancer Lipid disorder Surgical History H/O colonoscopy History of right shoulder replacement H/O prostatectomy Family History Mother H/O mitral valve replacement Colon cancer Father Cirrhosis, alcoholic Social History (Updated 04/07/24 @ 14:24 by Ifeoma Aragon MD) Household Members: Spouse Housing: House Alcohol intake: current Alcohol intake frequency: a few times a month Alcohol type: wine Comment: 2x a week 2 glasses Patient Tobacco Use Status: Former Tobacco user Tobacco use type: Cigarette Cigarette Packs Per Day: 1 Years Smoked: stopped 20 years old e-Cigarette/Vaping Use: Never Used Second Hand Smoke Exposure: Yes service: No Current occupational status: retired Cognitive needs: No Hearing needs: No Vision needs: Yes Review of Systems Const Denies daytime sleepiness, Denies excessive sweating, Denies fatigue, Denies fever(s), Denies lethargy, Denies malaise, Denies night sweats, Denies snoring and Denies weight loss Eyes Denies blurry vision and Denies itchy eyes ENT Denies nasal congestion, Denies post nasal drip, Denies sinus pain, Denies sinus pressure and Denies other ( Thrush) Card Denies chest pain, Denies pedal edema, Denies dyspnea, Denies orthopnea and Denies paroxysmal nocturnal dyspnea Resp Denies cough, Denies hemoptysis, Denies excessive phlegm production, Denies dyspnea, Denies snoring and Denies wheezing GI Denies abdominal pain and Denies heartburn Musc Denies myalgias, Denies arthralgias and Denies joint swelling Skin/Breast Denies rash Neuro Denies memory loss and Denies seizure-like activity Psych Denies abnormal sleep pattern, Denies anxiety and Denies memory loss Endo Denies excessive sweating, Denies fatigue and Denies heat intolerance Peter/Lymph Denies easy bruising Aller/Immun Denies itchy eyes, Denies seasonal rhinorrhea and Denies wheezing Physical Exam Vital Signs: Last Vital Signs Pulse 94 04/15/24 13:26 BP 118/62 04/15/24 13:26 Pulse Ox 97 04/15/24 13:26 Oxygen Delivery Method Room Air 04/15/24 13:26 BMI result Body Mass Index 24.8 Const General: no acute distress and alert Nutritional Appearance: not obese Orientation/consciousness: Other orientation findings ( oriented) HEENT Head: Yes atraumatic Eyes General: appearance normal, both eyes and all related structures Sclerae: sclerae normal EOM: EOMs intact bilaterally Neck Neck: Yes supple Lymphatic: no lymphadenopathy noted Resp Effort & Inspection: normal respiratory effort and no use of accessory muscles Auscultation: clear to auscultation bilaterally Cardio Rate: regular rate Rhythm: regular rhythm Heart sounds: no gallops, no murmurs and no rubs Skin General skin exam: other ( warm) Extrem General: No clubbing, No cyanosis and No edema Assessment & Plan Assessment & Plan (1) ILD (interstitial lung disease): Code(s): J84.9 - Interstitial pulmonary disease, unspecified Category: Medical (2) Shortness of breath: Code(s): R06.02 - Shortness of breath Category: Medical Plan Underlying mild pulmonary fibrosis. Will repeat CT chest in spring. Now with essentially no symptomatic limitation to activity level. Poor response to Anoro. Will discontinue. Orders: Orders CT chest wo IV con 11/13/24 J84.9 - Interstitial pulmonary disease, unspecified Coding Level of Care Code Est Pt Level 4 (97373) Diagnoses ILD (interstitial lung disease) J84.9 Shortness of breath R06.02
[2024-04-15 13:26] VITALS: BP 118/62; PULSE 94; O2SAT 97; BMI 24.8
== END 2024-04-15 13:54 | disposition home or self-care (01) ==
PROVIDERS: PCP Nurse Practitioner Family; Visit Provider Internal Medicine Pulmonary Disease
DX: J84.9 Interstitial pulmonary disease, unspecified (principal); R06.02 Shortness of breath
CPT/HCPCS: 99214

== ENCOUNTER → 2024-04-15 13:22 | Outpatient (BNVA) | payer MEDICARE, OTHER, SELFPAY | PROVIDERS: PCP Nurse Practitioner Family; Visit Provider Internal Medicine Pulmonary Disease | DX: J84.9 Interstitial pulmonary disease, unspecified (principal); R06.02 Shortness of breath | CPT/HCPCS: 99212 ==

== ENCOUNTER 2024-05-04 08:01 | Outpatient (REF) | payer MEDICARE, OTHER, SELFPAY ==
[2024-05-04 08:22] LABS: MANUAL DIFF FLAG NO
[2024-05-04 08:39] LABS: Basophils Percent Auto 0.1 % (0-2); Eosinophils Absolute Auto 0.3 X10*3/uL (0.0-0.4); Eosinophils Percent Auto 3.2 % (0-4); Hematocrit 44.2 % (42.0-52.0); Imm Gran Abs Auto 0.05 X10*3/uL (0.00-0.03); Imm Gran Pct Auto 0.5 % (0.0-0.4); Lymphocytes Absolute Auto 1.3 X10*3/uL (1.2-4.9); Mean Corpuscular HGB Conc 33.9 g/dl (31.0-36.0); Mean Corpuscular Volume 91.3 fL (80.0-98.0); Mean Platelet Volume 8.9 fL (9.4-12.4); Monocytes Percent Auto 10.6 % (2-11); Neutrophils Absolute Auto 7.2 x10*3/uL (2.0-8.3); Neutrophils Percent Auto 72.6 % (45-73); Platelet Count 373 X10*3/uL (160-400); Red Blood Count 4.84 X10*6/uL (4.60-5.80); Red Cell Distribution Width 13.8 % (11.0-16.0); White Blood Count 9.8 X10*3/uL (4.8-10.8)
[2024-05-04 09:17] LABS: Alanine Aminotransferase 12 U/L (0-40); Albumin Level 4.1 g/dL (3.5-5.0); Alkaline Phosphatase 114 U/L (39-117); Anion Gap 11 (12-20); Aspartate Amino Transferase 13 U/L (5-37); Bilirubin Total 0.5 mg/dL (0.0-1.0); Blood Urea Nitrogen 16 mg/dL (9-16); Calcium 9.7 mg/dL (8.4-10.2); Carbon Dioxide 27 mmol/L (22-29); Chloride 108 mmol/L (96-108); Cholesterol 183 mg/dL (<200); Estimated Glomerular Filt Rate 43; Glucose Random 105 mg/dL (60-115); HDL Cholesterol 47 mg/dL (>40); LDL Cholesterol Calculated 118 mg/dL (<100); Potassium 4.8 mmol/L (3.3-5.1); Sodium 141 mmol/L (135-145); Total Protein 7.5 g/dL (6.5-8.0); Triglycerides 92 mg/dL (<150)
[2024-05-04 09:31] LABS: Free T4 (Free Thyroxine) 0.85 ng/dL (0.71-1.85); Thyroid Stimulating Hormone 3.19 uIU/mL (0.32-4.0)
[2024-05-04 09:48] LABS: Prostate Specific Antigen Scr < 0.10 ng/mL (<0.05-4.0); Vitamin B12 323 pg/mL (200-900)
== END 2024-05-04 08:02 | disposition home or self-care (01) ==
LOC: HO.LAB 08:01
PROVIDERS: Absent Provider Internal Medicine; PCP Internal Medicine; Visit Provider Internal Medicine Hypertension Specialist
DX: E78.00 Pure hypercholesterolemia, unspecified (principal); Z12.5 Encounter for screening for malignant neoplasm of prostate
CPT/HCPCS: 36415; 80053; 80061; 82607; 82746; 84153; 84439; 84443; 85025

== ENCOUNTER 2024-05-10 11:08 | Outpatient (AMB) | payer MEDICARE, OTHER, SELFPAY ==
[2024-05-10 11:14] VITALS: BP 140/76; PULSE 74; O2SAT 97; BMI 25.0
--- NOTE | 2024-05-10 11:14 | HO.NEPHOV ---
Vital Signs 05/10/24 11:14 Height 5 ft 10 in Weight 174 lb BMI 25.0 BP 140/76 H Blood Pressure Location Lt brachial Position Sitting Pulse 74 Pulse Source Pulse Oximeter Pulse Oximetry (%) 97 Oxygen Delivery Method Room Air Intake Visit Reasons: CKD / 5 MO FU/ Conf [employer] Required: No Accompanied by: Self / Same As Patient Allergies hydrochlorothiazide Adverse Reaction (Intermediate, Verified 05/10/24 11:15) Hypotension Medication List - Last Reconciled 05/10/24 by Sonny Franklin MD amlodipine 2.5 mg PO DAILY enalapril maleate 20 mg PO DAILY pantoprazole 40 mg PO QAM pravastatin 40 mg PO DAILY HPI Comments Details: 77-year-old man with a longstanding history of hypertension which has been well controlled with enalapril. Recently hydrochlorothiazide 12.5 mg was added. Subsequently he developed lightheadedness and blood pressure dropped as low as 80 mm Hg systolic. Hydrochlorothiazide was discontinued. He monitors his blood pressure at home and systolic blood pressure is around 120-130 millimeter of mercury. Baseline creatinine is around 1.2-1.3 mg/dL as of 2020. In April 2023 creatinine bumped up to 1.59 widely was on enalapril 20 mg and hydrochlorothiazide 12.5 mg. No creatinine levels are available after discontinuation of hydrochlorothiazide. He has a history of a complex hepatic cyst and he is being followed by GI. Currently the plan is to monitor him. There was an incidental finding of a right renal cyst which has been documented as a simple cyst 12/10/23 Ray continues her shortness of breath on exertion year pulmonary function tests. He was given bronchodilators which did not help him. He was found to have some interstitial disease. Overall blood pressure seems to be well controlled 05/10/2024. Recently having difficulty with hyperthyroidism. Seen by endocrinology. He has gained weight last visit [facility] Medical History Elevated fasting glucose Prostate cancer Lipid disorder Surgical History H/O colonoscopy History of right shoulder replacement H/O prostatectomy Family History Mother H/O mitral valve replacement Colon cancer Father Cirrhosis, alcoholic Social History Household Members: Spouse Housing: House Alcohol intake: current Alcohol intake frequency: a few times a month Alcohol type: wine Comment: 2x a week 2 glasses Patient Tobacco Use Status: Former Tobacco user Tobacco use type: Cigarette Cigarette Packs Per Day: 1 Years Smoked: stopped 20 years old e-Cigarette/Vaping Use: Never Used Second Hand Smoke Exposure: Yes service: No Current occupational status: retired Cognitive needs: No Hearing needs: No Vision needs: Yes Physical Exam Vital Signs: Last Vital Signs Pulse 74 05/10/24 11:14 BP 140/76 H 05/10/24 11:14 Pulse Ox 97 05/10/24 11:14 Oxygen Delivery Method Room Air 05/10/24 11:14 BMI result Body Mass Index 25.0 Const General: no acute distress and alert Nutritional Appearance: not obese Orientation/consciousness: patient oriented x3 and Other orientation findings ( oriented) HEENT Head: Yes atraumatic Eyes General: appearance normal, both eyes and all related structures Visual Botello: normal visual botello by confrontation Sclerae: sclerae normal EOM: EOMs intact bilaterally Neck Neck: Yes supple Lymphatic: no lymphadenopathy noted Resp Effort & Inspection: normal respiratory effort and no use of accessory muscles Auscultation: clear to auscultation bilaterally Cardio Palpation: no palpable S3 and no palpable S4 Rate: regular rate Rhythm: regular rhythm Heart sounds: no gallops, no murmurs and no rubs GI Inspection: Yes normal to inspection Palpation (GI): Soft to palpation Percussion: Yes normal to percussion Auscultation: normal bowel sounds General: Yes no CVA tenderness Back/Spine/Pelvis Back: no CVA tenderness Skin General skin exam: other ( warm) Neuro General: patient oriented x3 and no focal motor deficits Extrem General: No clubbing, No cyanosis and No edema Results Reviewed Nephrology Results: Hgb 15.0 g/dl (14.0-18.0) 05/04/24 WBC 9.8 X10*3/uL (4.8-10.8) 05/04/24 Plt Count 373 X10*3/uL (160-400) 05/04/24 Sodium 141 mmol/L (135-145) 05/04/24 Potassium 4.8 mmol/L (3.3-5.1) 05/04/24 Chloride 108 mmol/L (96-108) 05/04/24 Carbon Dioxide 27 mmol/L (22-29) 05/04/24 BUN 16 mg/dL (9-16) 05/04/24 Creatinine 1.57 mg/dL (0.5-1.4) H 05/04/24 Calcium 9.7 mg/dL (8.4-10.2) 05/04/24 Assessment & Plan Assessment & Plan (1) SOB (shortness of breath) on exertion: Code(s): R06.02 - Shortness of breath Category: Medical (2) Hypertension, essential: Code(s): I10 - Essential (primary) hypertension Category: Medical (3) CKD (chronic kidney disease): Code(s): N18.9 - Chronic kidney disease, unspecified Category: Medical Qualifiers: Chronic kidney disease stage 3 subtype: stage 3a (GFR 45-59) (4) SAMAN (acute kidney injury): Code(s): N17.9 - Acute kidney failure, unspecified Category: Medical Plan 77-year-old man with a h/o acute kidney injury superimposed on CKD. Acute kidney injury most likely due to hypoperfusion from a combination of GOPAL inhibitor and hydrochlorothiazide leading to hypotension. He has underlying chronic kidney disease most likely due to hypertensive nephrosclerosis. No evidence of obstruction based on the recent ultrasonogram. No reason to believe that is any active glomerular or interstitial disease at this time. Nevertheless we will rule that out. Mild bump in serum creatinine. Repeat ordered for few weeks along with urine studies. Continue to avoid using HCTZ for now. Blood pressure is better controlled No changes were made to his antihypertensive regimen I encouraged him to stay on a low-sodium diet. He should monitor his blood pressure at home. Complex hepatic cyst. Being followed by Gastroenterology. Simple right renal cyst. I do not think this needs further intervention at this time. . Orders: Orders Basic Metabolic Panel 2 Weeks I10 - Essential (primary) hypertension, N18.9 - Chronic kidney disease, unspecified TSH reflex Free T4 2 Weeks I10 - Essential (primary) hypertension, N18.9 - Chronic kidney disease, unspecified Total Protein Urine Random 2 Weeks N18.9 - Chronic kidney disease, unspecified UA and rflx microscopic 2 Weeks N18.9 - Chronic kidney disease, unspecified Creatinine Urine 2 Weeks N18.9 - Chronic kidney disease, unspecified Coding Level of Care Code Est Pt Level 4 (28287) Diagnoses SOB (shortness of breath) on exertion R06.02 Hypertension, essential I10 CKD (chronic kidney disease) N18.9 Chronic kidney disease stage 3 subtype: stage 3a (GFR 45-59) SAMAN (acute kidney injury) N17.9
== END 2024-05-10 11:34 | disposition home or self-care (01) ==
PROVIDERS: PCP Internal Medicine; Visit Provider Internal Medicine Hypertension Specialist
DX: R06.02 Shortness of breath (principal); N17.9 Acute kidney failure, unspecified; I12.9 Hypertensive chronic kidney disease with stage 1 through stage 4 chronic kidney disease, or unspecified chronic kidney disease; N18.31 Chronic kidney disease, stage 3a
CPT/HCPCS: 99214

== ENCOUNTER → 2024-05-10 11:08 | Outpatient (BNVA) | payer MEDICARE, OTHER, SELFPAY | PROVIDERS: PCP Internal Medicine; Visit Provider Internal Medicine Hypertension Specialist | DX: I12.9 Hypertensive chronic kidney disease with stage 1 through stage 4 chronic kidney disease, or unspecified chronic kidney disease (principal); N18.9 Chronic kidney disease, unspecified; R06.02 Shortness of breath; N17.9 Acute kidney failure, unspecified; Z79.899 Other long term (current) drug therapy | CPT/HCPCS: 99212 ==

== ENCOUNTER 2024-05-25 07:05 | Outpatient (REF) | payer MEDICARE, OTHER, SELFPAY ==
[2024-05-25 07:35] LABS: Hemoglobin 14.1 g/dl (14.0-18.0); Mean Corpuscular HGB Conc 33.6 g/dl (31.0-36.0); Mean Corpuscular Hemoglobin 30.9 pg (27.0-33.0); Mean Corpuscular Volume 92.1 fL (80.0-98.0); Mean Platelet Volume 9.2 fL (9.4-12.4); Platelet Count 333 X10*3/uL (160-400); Red Blood Count 4.56 X10*6/uL (4.60-5.80); Red Cell Distribution Width 14.4 % (11.0-16.0); White Blood Count 8.2 X10*3/uL (4.8-10.8)
[2024-05-25 07:45] LABS: Estimated Average Glucose 108 mg/dL; Hemoglobin A1C 125.9631 umol/L; Hemoglobin A1c % 5.4 % (<6.0); Total Hemoglobin (HGBA1C) 3541.0161 umol/L
[2024-05-25 07:51] LABS: Appearance Urine Clear; Color Urine Yellow; Glucose Urine UA Negative (Negative); Leukocyte Esterase Urine Negative (Negative); Nitrite Urine Negative (Negative); PH 5.5 (5.0-9.0); Specific Gravity - Urine 1.025 (1.005-1.025); Urine Blood Negative (Negative); Urine Ketones Trace mg/dL (Negative); Urine Protein Trace mg/dL (Neg-Trace)
[2024-05-25 08:09] LABS: Anion Gap 13 (12-20); Blood Urea Nitrogen 17 mg/dL (9-16); Carbon Dioxide 25 mmol/L (22-29); Chloride 108 mmol/L (96-108); Estimated Glomerular Filt Rate 39; Glucose Random 110 mg/dL (60-115); Potassium 4.7 mmol/L (3.3-5.1); Sodium 141 mmol/L (135-145)
[2024-05-25 08:16] LABS: Free T4 (Free Thyroxine) 0.61 ng/dL (0.71-1.85)
[2024-05-25 08:18] LABS: TSH reflex Free T4 23.79 uIU/mL (0.32-4.0)
[2024-05-25 08:28] LABS: Creatinine Urine 343.11 mg/dL; Total Protein Urine Random 34 mg/dL (<12)
== END 2024-05-25 07:06 | disposition home or self-care (01) ==
LOC: HO.LAB 07:05
PROVIDERS: PCP Internal Medicine; Visit Provider Internal Medicine Hypertension Specialist
DX: I10 Essential (primary) hypertension (principal); N18.9 Chronic kidney disease, unspecified; R73.02 Impaired glucose tolerance (oral)
CPT/HCPCS: 36415; 80048; 81003; 82570; 83036; 84156; 84439; 84443; 85027

== ENCOUNTER 2024-08-12 10:37 | Outpatient (AMB) | payer MEDICARE, OTHER, SELFPAY ==
--- NOTE | 2024-08-12 10:46 | A.OFFPC_ITS ---
Vital Signs 08/12/24 10:47 Height 5 ft 10 in Weight 173 lb 4 oz BMI 24.9 BP 168/92 H Blood Pressure Location Lt brachial Position Sitting Pulse 96 Pulse Source Pulse Oximeter Pulse Oximetry (%) 94 Oxygen Delivery Method Room Air Intake Visit Reasons: Hypertension Allergies hydrochlorothiazide Adverse Reaction (Intermediate, Verified 08/12/24 10:49) Hypotension Tobacco use date assessed: 08/12/24 Fall risk assessment: No Falls in past year Last assessed Fall Risk: 08/12/24 Dental Screening Dental Screen Date: 08/12/24 Did you have a dental visit in the last 12 months?: Yes Did you have a dental problem in the last 6 months where you did not have access to dental care?: No Was dental information given to patient?: Patient has dentist HPI Hypertension HPI Details The patient is a 78-year-old male presenting with concerns regarding kidney function and blood pressure management, thyroid supplementation, and respiratory symptoms. The patient has chronic kidney disease, which worsened when hydrochlorothiazide was prescribed, leading to dehydration. It was discontinued after consultation with a kidney specialist. The patient's creatinine level was 1.71 in May, higher than the desired level of 1.3 or below. The patient underwent iodine treatment for hyperthyroidism, leading to hypothyroidism. He is under the care of an director of contracts and is now on thyroid hormone replacement therapy, currently at a dose adjustment stage to restore euthyroid status. He feels better although dosage needs optimization for thyroid function. The patient also has a history of hypertension with blood pressure readings up to 160/120 mmHg. Medications include Enalapril, which sometimes contributes to dizziness, likely positional vertigo, and dry cough. The patient monitors his blood pressure at home, which typically results in lower readings. Pulmonary scarring is noted with chronic morning mucus production, suggesting an underlying respiratory condition, possibly exacerbated by environmental allergies or recurrent infections. Prior inhalers provided no relief. A prior CAT scan suggested fibrosis. The butadiene converter helper advised follow-up and additional imaging. [facility] Medical History Elevated fasting glucose Prostate cancer Lipid disorder Surgical History H/O colonoscopy History of right shoulder replacement H/O prostatectomy Family History Mother H/O mitral valve replacement Colon cancer Father Cirrhosis, alcoholic Social History Household Members: Spouse Housing: House Alcohol intake: current Alcohol intake frequency: a few times a month Alcohol type: wine Comment: 2x a week 2 glasses Patient Tobacco Use Status: Former Tobacco user Tobacco use type: Cigarette Cigarette Packs Per Day: 1 Years Smoked: stopped 20 years old e-Cigarette/Vaping Use: Never Used Second Hand Smoke Exposure: Yes service: No Current occupational status: retired Cognitive needs: No Hearing needs: No Vision needs: Yes Questionnaire Thrive Questionnaire Date Thrive assessed: 08/12/24 GREGORY-7 AMB Questionnaire GREGORY-7 Date GREGORY - 7 assessed: 04/07/24 Source: Developed by Drs. Miguel Lindsey, Lorna Lazcano, Romario Alberto and colleagues, with an educational rosas from [email or web address]. Physical exam (Primary Care) Vital Signs: Last Vital Signs Pulse 96 08/12/24 10:47 BP 168/92 H 08/12/24 10:47 Pulse Ox 94 08/12/24 10:47 Oxygen Delivery Method Room Air 08/12/24 10:47 BMI result Body Mass Index 24.9 Tobacco/Smoking Status: Tobacco use Status Tobacco use date assessed 08/12/24 08/12/24 10:51 Patient Tobacco Use Status Former Tobacco user 08/12/24 10:51 Tobacco use type Cigarette 08/12/24 10:51 e-Cigarette/Vaping Use Never Used 08/12/24 10:51 Thrive Assessment: Date of Thrive Assessment Date Thrive assessed 08/12/24 08/12/24 10:51 Const General: alert; No acute distress Eyes Conjunctivae: conjunctivae normal Resp Auscultation: clear to auscultation bilaterally Cardio Rate: regular rate Rhythm: regular rhythm GI Inspection: Yes normal to inspection Extrem General: Yes normal to inspection and No edema Coding Level of Care Code Est Pt Level 4 (17456) Diagnoses ILD (interstitial lung disease) J84.9 CKD (chronic kidney disease) N18.9 Chronic kidney disease stage 3 subtype: stage 3a (GFR 45-59) GERD (gastroesophageal reflux disease) K21.9 Hypertension, essential I10 Hypercholesteremia E78.00 Hyperthyroidism E05.90 Hypothyroid E03.9 Benign positional vertigo H81.10 Assessment & Plan Assessment & Plan (1) ILD (interstitial lung disease): Code(s): J84.9 - Interstitial pulmonary disease, unspecified Category: Medical (2) CKD (chronic kidney disease): Code(s): N18.9 - Chronic kidney disease, unspecified Category: Medical Qualifiers: Chronic kidney disease stage 3 subtype: stage 3a (GFR 45-59) (3) GERD (gastroesophageal reflux disease): Code(s): K21.9 - Gastro-esophageal reflux disease without esophagitis Category: Medical (4) Hypertension, essential: Code(s): I10 - Essential (primary) hypertension Category: Medical Plan: on amlodipine and enalapril (5) Hypercholesteremia: Code(s): E78.00 - Pure hypercholesterolemia, unspecified Category: Medical (6) Hyperthyroidism: Comment: Graves disease post RA I endocrinology, January 2024 Code(s): E05.90 - Thyrotoxicosis, unspecified without thyrotoxic crisis or storm Category: Medical Plan: radioiodine treatment done 2023 (7) Hypothyroid: Code(s): E03.9 - Hypothyroidism, unspecified Category: Medical Plan: [facility] and on thyroid med (8) Benign positional vertigo: Code(s): H81.10 - Benign paroxysmal vertigo, unspecified ear Category: Medical Plan: keep well hydrated and slow down on chnages on position Plan - Monitor electrolyte levels and kidney function regularly due to the previous effect of hydrochlorothiazide and ongoing use of Enalapril. Consider further renal evaluation if creatinine remains elevated. - Adjust thyroid hormone therapy as per current director of contracts?s recommendati ons to stabilize thyroid hormone levels accurately. - Continue monitoring and adjusting antihypertensive medication to maintain optimal blood pressure at home and evaluate medication contributing to p ositional vertigo. - Evaluate pulmonary scarring with imaging follow-up as advised by the butadiene converter helper. Consider allergy management for chronic mucus production. - Advise the patient to be cautious with positional changes to minimize vertigo. Ensure adequate hydration to prevent exacerbation of vertigo. - Recommend maintaining a comprehensive record of blood pressure readings at home to better manage hypertension. - Encourage RSV vaccination to prevent respiratory complications due to the existing lung condition. Orders: Orders Free T4 (Free Thyroxine) Today R79.89 - Other specified abnormal findings of blood chemistry Thyroid Stimulating Hormone Today R79.89 - Other specified abnormal findings of blood chemistry Comprehensive Met. Panel Today N18.9 - Chronic kidney disease, unspecified
[2024-08-12 10:47] VITALS: BP 168/92; PULSE 96; O2SAT 94; BMI 24.9
--- OUTSIDE RECORDS SUMMARY | 2024-08-12 12:07 | XMS_ITS | Continuity of Care Document ---
Author Organization [facility] Address [address] [place] [id number]- Care Team Providers Care Manager Printing Name Role Phone Froilan MOELLER, Benny Allred Primary Care Physician [facility] [id number] Date(s): 07/14/24 - 07/21/24 [facility] [address] [place] [id number]- Encounter Diagnosis Hypothyroidism(Discharge Diagnosis) - 07/14/24 Attending Physician: Khanh Puente MD Encounter Type: Office Visit Allergies, Adverse Reactions, Alerts No Known Allergies Medications Citalopram Tablet 10 mg, By Mouth, Daily in AM, Maintenance, 09/29/14 3:20:00 PM EST Start Date: 09/29/14 Status: Ordered Repeat number: 1 Enalapril Tablet 20 mg, By Mouth, Daily in AM, Maintenance, 09/29/14 3:19:08 PM EST Start Date: 09/29/14 Status: Ordered Repeat number: 1 levothyroxine 0.088 mg oral tablet 1 tablet = 88 mcg, By Mouth, Daily, # 30 tablet, 11 Refills, Maintenance, 07/15/24 9:19:00 AM EST, [facility], Partial fill upon patient request if the prescription is for a schedule II opioid drug., 177.8, cm, 07/14/24 14:35:00 EST, Height, 78.8, kg, 07/14/24 14:35:00 EST, Dry Weight Start Date: 07/15/24 Status: Ordered Quantity: 30.0 Unit: tablet Repeat number: 12 Indication: Hypothyroidism, unspecified Pantoprazole Tablet = 40 mg, By Mouth, Daily at bedtime, 0 Refills, Maintenance, 09/29/14 3:19:33 PM EST Start Date: 09/29/14 Status: Ordered Repeat number: 1 Pravastatin Tablet 40 mg, By Mouth, Daily in AM, Maintenance, 09/29/14 3:18:42 PM EST Start Date: 09/29/14 Status: Ordered Repeat number: 1 Problem List Condition Confirmation Course Effective Dates Status Health St atus Informant Hyperthyroidism Confirmed Active Hypothyroidism Confirmed Active Thyroid nodule Confirmed Active Diagnosis Diagnosis Type Effective Dates Health Status inical Service Informant Hypothyroidism Discharge Diagnosis 07/14/24 Vital Signs Most recent to oldest [Reference Range]: 1 Height 177.80 cm (07/14/24 2:35 PM) Weight 78.8 kg (07/14/24 2:35 PM) Pulse Rate [55-90 bpm] 101 bpm *H* (07/14/24 2:35 PM) Body Mass Index [18.5-24.99 kg/m2] 24.93 kg/m2 (07/14/24 2:35 PM) Blood Pressure [90-138/55-84 mm Hg] 119/ 77mm Hg (07/14/24 2:35 PM) Blood pressure sites Arm, left (07/14/24 2:35 PM) Dry Weight 78.8 kg (07/14/24 2:35 PM) Weight Obtained Via Standing scale (07/14/24 2:35 PM) Dry Weight Obtained Via Standing scale (07/14/24 2:35 PM) Social History Social History Type Response Smoking Status Never smoker entered on: 10/10/14 Sex Sex Representation Male (finding) Note * Stephanie Means MA: PERFORM Event Display: Patient Education/Instruction Authored Date: Ambulatory Adult Visit Summary [facility] [address] [place] [address] Name: THOMAS ROSA : 1945?? Visit: 07/14/2024 14:34?? Ambulatory Visit Instructions ?? Your Care Team Primary Care Provider Benny Mcgovern MD? This Visit Provider Kwame MOELLER, Shiming Your Diagnosis Hypothyroidism Vitals Signs Pulse Rate:??101 bpm??High Height: 177.8 cm Systolic Blood Pressure: 119 mm Hg Weight: 78.8 kg Diastolic Blood Pressure: 77 mm Hg Body Mass Index: 24.93 kg/m2 ?? Body surface area: 1.97 What to do next Instructions From Your Provider Proper Levothyroxine Administration?? - Take??levothyroxine in the morning fasting with water only,??at least 30 minutes??before having breakfast or any coffee. You can try to put the levothyroxine on the nightstand with a glass of waterat night, then take the medication first thing you wake up in the morning, so to reduce the waitingtime before you can eat breakfast. - Do not take iron products, proton pump inhibitors (such as omaprazole, pantoprazole), H2 blockers(such as famotidine), antacids that have aluminum and magnesium, calcium (some vitamin also have calcium), simethicone, sucralfate, Kayexalate??, colestipol, or cholestyramine within 4 hours of this drug. If possible, please try to avoid all medication (including kfit-zxo-yhqhlpy medication) within4 hours of levothyroxine. - if you miss a pill, take TWO the next day. This is OK to do because this is a long-acting medication. - Avoid any Biotin supplement??at least 3 days before checking your??thyroid labs (Biotin also termed as vitamin B7 or B8, vitamin H, or coenzyme R, double check if you are taking any multivitamin which main contain biotin) ?? Follow-Up Appointments Follow Up with??Kwame MOELLER, Khanh When:??10/27/2024 10:05 AM EDT Where: [address] [place] [address] [place] [address]- Future Orders TSH - Routine, Once, 07/14/24 14:38:00 EST, Future Order, [facility], Blood?? Free T4 - Routine, Once, 07/14/24 14:38:00 EST, Future Order, [facility], Blood?? Medications The list below reflects the information in our records and provided by you today along with any changes made during this visit. Please continue your medications until treatment is completed or stopped by your provider. If this is different from the information you have or there are other questions,please contact the prescribing provider. What How Much When Why Instructions Unchanged Citalopram (Citalopram Tablet) 10 Milligram Oral Daily in the morning Unchanged Enalapril (Enalapril Tablet) 20 Milligram Oral Daily in the morning Unchanged Levothyroxine (levothyroxine 0.112 mg oral tablet) 1 tab(s) Oral Daily Hypothyroidism Unchanged Pantoprazole (Pantoprazole Tablet) 40 Milligram Oral Daily at Bedtime Unchanged Pravastatin (Pravastatin Tablet) 40 Milligram Oral Daily in the morning Test Performed Below is a partial list of the tests performed during your Visit. You may have had other tests and procedures not included in this list. Please discuss all test results with your provider. Free T4?-- Results Pending -- TSH?-- Results Pending -- Medications and Immunizations Administered Medications Given During Visit No medications given during this visit.?? Allergies (NKA means No Known Allergies) NKA Common Emergency Awareness Tips IS IT A STROKE? Act FAST and Check for these signs: FACE Does the face look uneven? ARM Does one arm drift down? SPEECH Does their speech sound strange? TIME Call at any sign of stroke ?? Heart Attack Signs Chest discomfort: Most heart attacks involve discomfort in the center of the chest and lasts more than a few minutes, or goes away and comes back. It can feel like uncomfortable pressure, squeezing, fullness or pain. Discomfort in upper body: Symptoms can include pain or discomfort in one or both arms, back, neck, jaw or stomach. Shortness of breath: With or without discomfort. Other signs: Breaking out in a cold sweat, nausea, or lightheaded. Remember, MINUTES DO MATTER. If you experience any of these heart attack warning signs, call to get immediate medical attention! ?? Smoking can increase your chances of developing chronic health problems and can cause harmful effects to other family members in your house. If you smoke, you are strongly encouraged to quit. Please call [facility] at [phone] or [phone] ([phone]) or log in to [email or web address] for referrals to smoking cessation programs. ?? The National Suicide Prevention Hotline is available 02/03 if you or someone you know needs to find a reason to keep living. By calling 5-892-923-talk (4453) you'll be connected to a skilled, trained counselor at a crisis center in your area. [facility] Portal You can view and manage your care through the patient portal or by using a health care andrade of your choosing. [employer] is a website that allows you to securely view your medical information including your hospital discharge summary, office visit summaries, medications and follow-up visits. You can also request appointments, renew medications, and request access to your medical information using a health care andrade of your choosing, or just ask a question. You can enroll at [email or web address] or register during your next office visit. [facility], in keeping with [facility] guidance, no longer requires face masks for staff, patientsor visitors in most situations. Similiar to time spent indoors at other locations, there is the chance that you were exposed to repiratory viruses during your time with us (such as flu or COVID-19). If you develop symptoms concerning for a viral respiratory infection, please seek testing (and treatment if indicated) from your medical provider or home test kit. ?? Disclaimer: The information provided is of a general nature and is intended to be used in conjunction with the recommendations and advice of your health care practitioner. Every effort has been made to ensure that the information provided is accurate and complete at the time it is provided to you however, as your needs change, or, as new information becomes available, different or additional instructions may be required. ?? If you have questions, please consult with your primary care provider or pharmacist, as appropriate. This information is not intended to serve as substitution for assessment and evaluation by a qualified health care provider. If you do not have a primary care provider, you may find a [facility] provider by calling [facility] at [phone]. Patient Care team information Care Team Personnel Name: Benny Mcgovern MD Position: [facility] Outreach Member Role: PCP Address: [address] [place], [place] [address]Dennis Mcgovern MD, [address] Telecom: Care Team Related Persons Name: NATALIE ROSA Insurance Providers Guarantor name: THOMASANUPAMA BENAVIDESTAINE Health Plan Information #: 2 Payer: [employer] [facility] [employer] Member Number: [id number] Policy Number: NA Group Number: [id number] Health Plan Information #: 1 Payer: MEDICARE PART B OUTPT Member Number: [id number] Policy Number: NA Group Number: [id number]
--- OUTSIDE RECORDS SUMMARY | 2024-08-12 12:08 | XMS_ITS | Continuity of Care Document ---
Author Organization [facility] Address [address] [place] [address] Phone [phone] Care Team Providers Care Manager Billing Name Role Phone Ifeoma Aragon Care Team Information It Support Technician + [phone] Problems Active Problems Provider Date Essential hypertension René Eid M.D. Ons et: 02/26/2022 Hypercholesterolemia René Eid M.D. 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 Onset: 02/26/2022 Gastroesophageal reflux disease René Eid M.D. Onset: 01/23/2023 Dyspnea on exertion René Eid M.D. Onset: 12/30/2023 Social History Type Date Description Comments Sex Unknown Marital Status Has been 1 time Lives With Spouse Sleep Reports normal sleep activit y Sleep Typically sleeps 7 hours a n ight Work Status Retired Tobacco Use Start: Unknown Never Used Smokeless Tobac co ETOH Use Occasionally consumes alcoho l Allergies and adverse reactions Description No Known Drug Allergies Medications Active Medications SIG Qnty Indications Ordering Provider Date Enalapril [id number] Tablets Take 1 Tablet By Mouth Every Day Benny Mcgovern M.D. Pravastatin [id number] Tablets Take 1 Tablet By Mouth Every Day Benny Mcgovern M.D. Pantoprazole [id number] Tablets DR 1 by mouth every day René Eid M.D. Amlodipine Besylate2.5mg Tablets Take 1 Tablet By Mouth Daily Unknown Vital Signs Date Vital Result Comment 02/22/2024 2:56pm BP Systolic 126 mmHg BP Diastolic 62 mmHg Heart Rate 83 /min Height 69 inches 5'9 Weight 170.00 lb BMI (Body Mass Index) 25.1 kg/m2 Results Test Acquired Date Facility Test Result H/L Range Note TSH Rfx on Abnormal to Free T4 03/29/2024 [facility] TSH RFX On Abnormal To Free T4 0.052 uIU/mL Low 0.450-4.5 00 T4,Free (Direct) 1.79 ng/dL High 0.82-1.77 Laboratory test finding 02/16/2024 [facility] TSH 0.546 uIU/mL 0.450-4.5 00 Thyroxine (T4) Free, Direct 1.17 ng/dL 0.82-1.77 TSH Rfx on Abnormal to Free T4 12/02/2023 [facility] TSH RFX On Abnormal To Free T4 0.005 uIU/mL Low 0.450-4.5 00 1 T4,Free (Direct) TNP ng/dL 2 Laboratory test finding 12/02/2023 [facility] Thyroxine (T4) Free, Direct 2.07 ng/dL High 0.82-1.77 TSH Rfx on Abnormal to Free T4 10/29/2023 [facility] TSH RFX On Abnormal To Free T4 <0.005 uIU/mL Low 0.450-4.5 00 T4,Free (Direct) 3.37 ng/dL High 0.82-1.77 Laboratory test finding 07/01/2023 [facility] TSH With Reflex To FT4 0.95 uIU/mL (0.4-4.2) Hemoglobin A1c With Est Glucose 01/23/2023 [facility] Hemoglobin A1c 5.6 % (4.0-5.6) 3 Estimated Average Glucose 114 mg/dL Laboratory test finding 01/23/2023 [facility] TSH With Reflex To FT4 1.72 uIU/mL (0.4-4.2) Laboratory test finding 10/07/2022 [facility] TSH With Reflex To FT4 1.45 uIU/mL (0.4-4.2) Free T4 1.36 ng/dL (0.70-1.8 0) Laboratory test finding 08/18/2022 [facility] TSH With Reflex To FT4 1.75 uIU/mL (0.4-4.2) Free T4 1.44 ng/dL (0.70-1.8 0) Laboratory test finding 08/18/2022 [facility] TSH Duplicate order <SEE NOTE> 4 Laboratory test finding 07/10/2022 [facility] TSH With Reflex To FT4 14.70 uIU/mL High (0.4-4.2) Free T4 1.00 ng/dL (0.70-1.8 0) Laboratory test finding 02/19/2022 [facility] Free T4 0.93 ng/dL (0.70-1.8 0) TSH 4.85 uIU/mL High (0.4-4.2) 1 STANDING ORDER 2 Duplicate procedure ordered. 3 MONITORING: In known diabetic patients, hemoglobin A1c targets should be discussed with health care provider. DIAGNOSTIC USE: The [place] Diabetes Association (ADA) and the World Health Organization (WHO) recommend the use of HbA1c to diagnose diabetes using a threshold of 6.5%. Patients who have an HbA1c between 5.7% and 6.4% are considered at increased risk for developing diabetes in the future. CAUTION: Falsely low HbA1c results may be observed in patients with hemolytic anemia, homozygous forms of abnormal hemoglobin (e.g. SS, CC, SC), , recent blood loss or hemoglobin F greater than 7%. Fructosamine may be used as an alternate test in these cases. REFERENCE: ADA: Standards of Medical Care in Diabetes 2020, The Journal of Clinical and Applied Research and Education Volume 43, Supplement 1 4 Duplicate order canc elled via interface Medical Devices Description No Information Available Encounters Type Date Location Provider Dx Diagnosis Office Visit 02/22/2024 3:00p Main Office TAMIKA Gomez E05.00 Thyrotoxicosis w diffuse goiter w/o thyrotoxic crisis Assessments Date Code Description Provider 02/22/2024 E05.00 Graves' disease TAMIKA Aguilera Plan of Treatment No Information Available Functional Status Description No Information Available Mental Status Description No Information Available Referrals Description No Information Available
== END 2024-08-12 11:21 | disposition home or self-care (01) ==
PROVIDERS: PCP Internal Medicine; Visit Provider Internal Medicine
DX: I12.9 Hypertensive chronic kidney disease with stage 1 through stage 4 chronic kidney disease, or unspecified chronic kidney disease (principal); J84.9 Interstitial pulmonary disease, unspecified; N18.9 Chronic kidney disease, unspecified; K21.9 Gastro-esophageal reflux disease without esophagitis; E78.00 Pure hypercholesterolemia, unspecified; E05.90 Thyrotoxicosis, unspecified without thyrotoxic crisis or storm; E03.9 Hypothyroidism, unspecified; H81.10 Benign paroxysmal vertigo, unspecified ear

== ENCOUNTER 2024-08-12 10:37 | Outpatient (REF) | payer MEDICARE, OTHER, SELFPAY ==
[2024-08-12 15:01] LABS: Alanine Aminotransferase 19 U/L (0-40); Alkaline Phosphatase 111 U/L (39-117); Anion Gap 11 (12-20); Aspartate Amino Transferase 21 U/L (5-37); Bilirubin Total 0.3 mg/dL (0.0-1.0); Blood Urea Nitrogen 16 mg/dL (9-16); Calcium 9.1 mg/dL (8.4-10.2); Carbon Dioxide 25 mmol/L (22-29); Chloride 108 mmol/L (96-108); Estimated Glomerular Filt Rate 59; Glucose Random 134 mg/dL (60-115); Sodium 140 mmol/L (135-145); Total Protein 7.7 g/dL (6.5-8.0)
--- OUTSIDE RECORDS SUMMARY | 2024-08-12 15:28 | XMS_ITS | Continuity of Care Document ---
Author Organization [facility] Address [address] [place] [address] Phone [phone] Care Team Providers Care Mica Machine Operator Name Role Phone Ifeoma Aragon Care Team Information Night Shift + [phone] Problems Active Problems Provider Date Essential hypertension [...] SIG Qnty Indications Ordering Provider Date Enalapril [id number] Tablets Take 1 Tablet By Mouth Every Day Benny Mcgovern M.D. Pravastatin [id number] Tablets Take 1 Tablet By Mouth Every Day Benny Mcgovern M.D. Pantoprazole [id number] Tablets DR 1 by mouth every day [...] ng/dL High 0.82-1.77 Laboratory test finding 07/01/2023 [facility] TSH With Reflex To FT4 0.95 uIU/mL (0.4-4.2) Hemoglobin A1c With Est Glucose 01/23/2023 [facility] Hemoglobin A1c 5.6 % (4.0-5.6) 3 Estimated Average Glucose 114 mg/dL Laboratory test finding 01/23/2023 [facility] TSH With Reflex To FT4 1.72 uIU/mL (0.4-4.2) Laboratory test finding 10/07/2022 [facility] TSH With Reflex To FT4 1.45 uIU/mL (0.4-4.2) Free T4 1.36 ng/dL (0.70-1.8 0) Laboratory test finding 08/18/2022 [facility] TSH With Reflex To FT4 1.75 uIU/mL (0.4-4.2) Free T4 1.44 ng/dL (0.70-1.8 0) Laboratory test finding 08/18/2022 [facility] TSH Duplicate order <SEE NOTE> 4 Laboratory test finding 07/10/2022 [facility] TSH With Reflex To FT4 14.70 uIU/mL High (0.4-4.2) Free T4 1.00 ng/dL (0.70-1.8 0) Laboratory test finding 02/19/2022 [facility] Free T4 0.93 ng/dL (0.70-1.8 0) TSH 4.85 uIU/mL High (0.4-4.2) 1 STANDING ORDER 2 Duplicate procedure ordered. 3 MONITORING: In known diabetic patients, hemoglobin A1c targets should be discussed with health care provider. DIAGNOSTIC USE: The [place] [employer] (ADA) and the World Health [...]
--- OUTSIDE RECORDS SUMMARY | 2024-08-12 15:28 | XMS_ITS | Data Portability ---
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 Plan of Treatment Reminders Order Date Submit Date Provider Last Modified By Organization Details Last Modified Time Details Appointments None recorded. Lab PSA, total 2009 010 [facility], [address] [place] [address], [address], 3 03:53:00 lipid panel 2009 010 [facility], [address] [place] [address], [address], 3 03:53:00 ALT (SGPT) 2009 010 [facility], [address] [place] [address], [address], 3 03:53:00 basic metabolic panel 2009 010 [facility], [address] [place] [address], [address], 3 04:26:12 CBC 2009 010 [facility], [address] [place] [address], [address], 3 03:53:00 Referral None recorded. Procedures None recorded. Surgeries None recorded. Imaging exercise stress test - ongoing chest discomfort 11/06/09 1:10 2009 010 [facility], [address], [address], [place], [address], 3 03:58:12 Medication Orders trazodone 50 mg tablet 2009 010 [facility] #[id number], [address], [place], [phone], 3 03:53:00 fluocinolon e 0.025 % topical cream 2009 010 [facility] #[id number], [address] [place], [place], [phone], 3 03:58:12 enalapril maleate 20 mg tablet 2009 010 [facility], [address] [place] [address], [address], 3 03:58:12 Ambien 10 mg tablet 2009 010 [facility] #[id number], [address], [place], [phone], 4 02:36:21 Patient TargetsNo targets recorded. Patient Instructions Encounter Date Encounter Id Patient Instructions Last Modified By Organization Details Last Modified Time 09/17/2009 [id number] to do labs , return in 6 weeks and work on wt loss and exercise, consider cortisone inj knee if still an issue, may need to inc BPmeds, to eval lipids , trial of trazodone for insomnia. [email or web address]_ Not available 03/10/2011 02:56:45 10/29/2009 [id number] return in 2m, to do ETT [email or web address]_ Not available 03/10/2011 03:15:45 01/08/2010 [id number] 6m follow up , C V exercise, wt loss [email or web address]_ Not available 03/10/2011 02:50:53 Reason for Referral None Reported. Results Created Date Observation Date Name Description Value Unit Range Abnormal Flag Note LastModifiedBy Organization Detail LastModifiedTime 10/09/19 10 10/08/2009 CBC WBC 6.5 K/??? L 4.2-9. 1 Not Available [address], [address], 10/08/2009 11:11:57 10/09/19 10 10/08/2009 CBC RBC 4.91 M/??? L 4.63-6 .08 Not Available [address], [address], 10/08/2009 11:11:57 10/09/19 10 10/08/2009 CBC HGB 15.0 g/dL 13.7-1 7.5 Not Available [address], [address], 10/08/2009 11:11:57 10/09/19 10 10/08/2009 CBC HCT 44.7 % 40.1-5 1.0 Not Available [address], [address], 10/08/2009 11:11:57 10/09/19 10 10/08/2009 CBC MCV 91.0 ???L 79.0-9 2.2 Not Available [address], [address], 10/08/2009 11:11:57 10/09/19 10 10/08/2009 CBC MCH 30.5 pg 25.7-3 2.2 Not Available [address], [address], 10/08/2009 11:11:57 10/09/19 10 10/08/2009 CBC MCHC 33.6 g/dL 32.3-3 6.5 Not Available [address], [address], 10/08/2009 11:11:57 10/09/19 10 10/08/2009 CBC plt 348.0 K/??? L 163.0- 337.0 high Not Available [address], [address], 10/08/2009 11:11:57 10/09/19 10 10/08/2009 CBC MPV 9.9 9.4-12 .4 Not Available [address], [address], 10/08/2009 11:11:57 10/09/19 10 10/08/2009 CBC neut% 63.0 % 34.0-6 7.9 Not Available [address], [address], 10/08/2009 11:11:57 10/09/19 10 10/08/2009 CBC neut# 4.1 1.8-5. 4 Not Available [address], [address], 10/08/2009 11:11:57 10/09/19 10 10/08/2009 CBC lymph % 17.8 % 21.8-5 3.1 low Not Available [address], [address], 10/08/2009 11:11:57 10/09/19 10 10/08/2009 CBC lymph # 1.2 K/??? L 1.3-3. 6 low Not Available [address], [address], 10/08/2009 11:11:57 10/09/19 10 10/08/2009 CBC mono% 15.9 % 5.3-12 .2 high Not Available [address], [address], 10/08/2009 11:11:57 10/09/19 10 10/08/2009 CBC mono# 1.0 0.3-0. 8 high Not Available [address], [address], 10/08/2009 11:11:57 10/09/19 10 10/08/2009 CBC eo% 2.5 % 0.8-7. 0 Not Available [address], [address], 10/08/2009 11:11:57 10/09/19 10 10/08/2009 CBC eo# 0.2 0.0-0. 5 Not Available [address], [address], 10/08/2009 11:11:57 10/09/19 10 10/08/2009 CBC baso% 0.8 % 0.2-1. 2 Not Available [address], [address], 10/08/2009 11:11:57 10/09/19 10 10/08/2009 CBC baso# 0.1 0.0-0. 1 high Not Available [address], [address], 10/08/2009 11:11:57 10/09/19 10 10/08/2009 CBC RDW 13.1 % 11.6-1 4.4 Not Available [address], [address], 10/08/2009 11:11:57 10/09/19 10 10/08/2009 CBC RDW 43.0 fL 35.1-4 3.9 Not Available [address], [address], 10/08/2009 11:11:57 10/09/19 10 10/08/2009 lipid panel cholesterol 178 mg/dL <200 mg/dL karmen able 200-2 39 mg/dL borde rline high >240 mg/dL high Not Available [address], [address], 10/08/2009 15:19:29 10/09/19 10 10/08/2009 lipid panel triglyceride s 75 mg/dL <150 mg/dL cassius l 150-1 99 mg/dL borde rline high 200-4 99 mg/dL high >500 mg/dL very high Not Available [address], [address], 10/08/2009 15:19:29 10/09/19 10 10/08/2009 lipid panel direct HDL 50 mg/dL <40 mg/dL - major risk for CHD >60 mg/dL - negat ladarius risk for CHD Not Available [address], [address], 10/08/2009 15:19:29 10/09/19 10 10/08/2009 lipid panel direct LDL 114 mg/dL risk categ ory LDL goal _ CHD or CHD risk equiv alent s <100 mg/dL (10-y ear risk >20%) 2+ risk facto rs <130 mg/dL (10-y ear risk <= 20%) 0-1 risk facto r??? <160 mg/dL ??? almos t all peopl e with 0-1 risk facto r have A 10 year risk <10%, thus 10 year risk asses ment in peopl e with 0-1 risk facto r IS not neces kelsea. Not Available [address], [address], 10/08/2009 15:19:29 10/09/19 10 10/08/2009 basic metab olic panel glucose 105 mg/dL 70-100 high clini juanita refer ence range s fasti ng gluco se <100 mg/dL = cassius l fasti ng gluco se; 100-1 25 mg/dL = ifg (impa ired fasti ng gluco se); >126 mg/dL = provi siona l diagn osis of diabe misbah (conf irm by repea t testi ng on A day.) Not Available [address], [address], 10/08/2009 15:19:30 10/09/19 10 10/08/2009 basic metab olic panel BUN 15 mg/dL 7-18 Not Available [address], [address], 10/08/2009 15:19:30 10/09/19 10 10/08/2009 basic metab olic panel creatinine 1.2 mg/dL 0.8-1. 3 Not Available [address], [address], 10/08/2009 15:19:30 10/09/19 10 10/08/2009 basic metab olic panel B/C 12.5 ratio Not Available [address], [address], 10/08/2009 15:19:30 10/09/19 10 10/08/2009 basic metab olic panel GFR 65.0 mL/mi n recom rachel d GFR by the natio nal kidne y found ation >60 mL/mi n/1.7 3M2 - cassius l <60 mL/mi n/1.7 3M2 - chron ic kidne y disea se <15 mL/mi n/1.7 3M2 - kidne y failu re Not Available [address], [address], 10/08/2009 15:19:30 10/09/19 10 10/08/2009 basic metab olic panel GFR - if 78.6 mL/mi n for afric an ameri can patie nts: resul ts multi plied by 1.21 Not Available [address], [address], 10/08/2009 15:19:30 10/09/19 10 10/08/2009 basic metab olic panel sodium 144 mmol/ L 136-14 5 Not Available [address], [address], 10/08/2009 15:19:30 10/09/19 10 10/08/2009 basic metab olic panel potassium 4.8 mmol/ L 3.5-5. 1 Not Available [address], [address], 10/08/2009 15:19:30 10/09/19 10 10/08/2009 basic metab olic panel chloride 107 mmol/ L 96-107 Not Available [address], [address], 10/08/2009 15:19:30 10/09/19 10 10/08/2009 basic metab olic panel _anion gap 11.0 Not Available [address], [address], 10/08/2009 15:19:30 10/09/19 10 10/08/2009 basic metab olic panel CO2 26 mmol/ L 21-32 Not Available [address], [address], 10/08/2009 15:19:30 10/09/19 10 10/08/2009 basic metab olic panel calcium 9.1 mg/dL 8.5-10 .3 Not Available [address], [address], 10/08/2009 15:19:30 10/09/19 10 10/08/2009 ALT (SGPT ) ALT 36 U/L 30-65 Not Available [address], [address], 10/08/2009 15:19:31 10/09/19 10 10/09/2009 PSA, total PSA <0.05 NG/mL 0.00-4 .00 < Not Available [address], [address], 10/09/2009 11:49:45 11/07/19 10 11/06/2009 exerc ise stres s test No observ ation record ed. PHIL Pending 03/05/2013 03:36:07 11/08/19 10 11/06/2009 exerc ise stres s test No observ ation record ed. [facility] [address], [place], [address], 03/05/2013 03:36:07 12/11/19 10 12/07/2009 imagi ng/di agnos tic resul t No observ ation record ed. [facility] [address], [place], [address], 03/04/2013 04:03:33 12/12/19 10 12/07/2009 tread mill nucle ar stres s test No observ ation record ed. PHIL Pending 03/04/2013 04:03:47 Result Notes None recorded. Problems Name Problem SNOMED Code Status Onset Date Resolution Date Notes Provider Name and Address Organization Details Recorded Time Mixed hyperlipid emia 976977044 Active 2006 Not Available [facility] 3 03:14:06 Dyspnea 925161936 Completed 06/29/2013 Not Available [facility] 3 02:02:45 Impotence of organic origin Active 2006 Not Available [facility] 3 03:14:06 Gastroesop hageal reflux disease 931959343 Active 2006 Not Available [facility] 3 03:14:06 Cough 08320528 Completed 06/29/2013 Not Available [facility] 3 02:01:10 Anorectal abscess 65853452 Completed 200706/29/2013 Not Available [facility] 3 02:04:24 Viral disease 87954873 Completed 06/29/2013 Not Available [facility] 3 02:03:22 Fever 766193872 Completed 200806/29/2013 Not Available [facility] 3 02:02:42 Benign essential hypertensi on 6216387 Active 2006 Not Available [facility] 3 03:14:06 Actinic keratosis 852213420 Completed 06/29/2013 Not Available [facility] 3 02:03:15 Influenza 6128527 Completed 06/29/2013 Not Available [facility] 3 02:02:21 Glucose level outside reference range 982459615 Active 2008 Not Available [facility] 3 03:14:06 Insomnia 802481092 Active Not Available [facility] 3 03:14:06 Primary malignant neoplasm of prostate 60747531 Active 2006 Not Available [facility] 3 03:14:06 Atopic dermatitis 32276841 Active 2007 Not Available [facility] 3 03:14:06 Acute upper respirator y infection 15041544 Completed 06/29/2013 Not Available [facility] 3 02:02:17 Abdominal pain 99807200 Completed 200806/29/2013 Not Available [facility] 3 02:01:23 On examinatio n - a rash Completed 200706/29/2013 Not Available [facility] 3 02:00:50 Chest pain 10168335 Completed 06/29/2013 Not Available [facility] 3 02:01:46 Anemia 873157423 Active 2007 Not Available [facility] 3 03:14:06 Localized, primary osteoarthr itis of the shoulder region 298594824 Active Not Available [facility] 3 03:14:06 Hyperlipid emia 53432458 Active 2007 Not Available [facility] 3 03:14:06 Low back pain 663162499 Active 2006 Not Available [facility] 3 03:14:06 Hemorrhoid s 13804747 Active Not Available [facility] 3 03:14:06 Arthropath y 049567079 Active 2006 Not Available [facility] 3 03:14:06 Problem Notes None recorded. Procedures Surgical History Date Name Laterality Status Provider Name and Address Organization Details Recorded Time 09/21/19 09 Vision Screening completed Alessandro Santizo MD [address] [place] [address], [phone], [facility] 09/24/2008 22:15:53 09/21/19 09 Corticosteroid Injection completed Alessandro Santizo MD [address] [place] [address], [phone], [facility] 09/24/2008 22:15:53 09/21/19 09 Shave Biopsy completed Alessandro Santizo MD [address] [place] [address], [phone], [facility] 09/24/2008 22:15:53 Imaging Results Imaging Date Name Status LastModified by Organiz ation Details LastModified Time 11/06/2009 exercise stress test completed PHIL Pending 03/05/2013 03:36:07 11/06/2009 exercise stress test completed [facility] [address], [place], [address], 03/05/2013 03:36:07 12/07/2009 imaging/diagno stic result completed [facility] [address], [place], [address], 03/04/2013 04:03:33 12/07/2009 treadmill nuclear stress test completed PHIL Pending 03/04/2013 04:03:47 Procedure Notes None recorded. Medical Equipment None Reported. Allergies No known drug allergies Medications Name Sig Start Date Stop Date Status Note LastModified by Organization Details LastModified Time trazodone 50 mg tablet Take 1 tablet every day by oral route. 2009 active Not Available Not Available Not Avai lable pravastat in 40 mg tablet Take 1 tablet every day by oral route. 2008 active Not Available Not Available Not Avai lable enalapril maleate 20 mg tablet Take 1 tablet twice a day by oral route. 2009 active Not Available Not Available Not Avai lable Prilosec 20 mg capsule,d elayed release Take 1 capsule every day by oral route. 2008 active Not Available Not Available Not Avai lable Zithromax Z-Basil 250 mg tablet Take 2 tablets (500 mg) by oral route once daily for 1 day then 1 tablet (250 mg) by oral route once daily for 4 days 2008 active Not Available Not Available Not Avai lable [facility] Aspirin 81 mg chewable tablet 2006 active Take 1.00 tabs daily Not Available Not Available Not Available Efudex 5 % topical cream Apply a sufficie nt amount to cover the lesions in the affected area(s) by topical route 1 times per day 10/19 completed Not Available Not Available Not Available betametha sone valerate 0.1 % topical cream 10/19 completed Take 1.00 applics twice daily Not Available Not Available Not Available pantopraz ole 40 mg tablet,de layed release active take 1.00 tab daily Not Available Not Available Not Available codeine 10 mg-guaife nesin 100 mg/5 mL oral liquid Take 10 mL every 4 hours by oral route. 2008 active Not Available Not Available Not Avai lable pravastat in 20 mg tablet Take 1 tablet every day by oral route. 2008 active Not Available Not Available Not Avai lable Ambien 10 mg tablet Take 1 tablet every day by oral route. 2009 active Not Available Not Available Not Avai lable fluocinol one 0.025 % topical cream Apply to affected area(s) by topical route 2 times per day 2009 active Not Available Not Available Not Avai lable Levitra 20 mg tablet Take 1 tablet every day by oral route. 2008 active Not Available Not Available Not Avai lable Vitals Date Recorded Body height Body weight Body mass index (BMI) Heart rate Systolic blood pressure Diastolic blood pressure Provider Name and Address Organization Details Last Updated DateTime 0 170.815 cm 03896.7 7319 g 29.1 kg/m2 76 /min 124 mm[Hg] 78 mm[Hg] Felicita Chaparro [facility] 0 09:34:18 Date Recorded Body height Body weight Body mass index (BMI) Heart rate Systolic blood pressure Diastolic blood pressure Provider Name and Address Organization Details Last Updated DateTime 0 168.275 cm 07338.5 503 g 30.4 kg/m2 88 /min 144 mm[Hg] 84 mm[Hg] Mariela Dunham [facility] 0 09:14:47 Date Recorded Body height Body weight Body mass index (BMI) Systolic blood pressure Diastolic blood pressure Provider Name and Address Organization Details Last Updated DateTime 10/29/2009 170.815 cm 68460.84 1716 g 29.7 kg/m2 134 mm[Hg] 88 mm[Hg] Felicita Chaparro [facility] 0 10:21:01 Social History Question Answer Notes LastModified by Organizat ion Details LastModified Time Tobacco Smoking Status Former Smoker Not Available [facility] 06/26/2011 05:02:19 Do You Have An Advance Directive? 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 20 7 Information not available 06/26/2011 How Much Tobacco Do You Smoke? No Quit 30 Years Ago hemery Information not available 09/21/2008 Sex: Unknown Functional Status None recorded. Mental Status None recorded. Family History Nothing Reported. Medical History Condition Response Prostate Cancer Y Hyperlipidemia Y Hypertension Y Immunizations Vaccine Type Date Status Note Provider Nam e and Address Organization Details Recorded Time Td(adult) unspecified formulation 7 completed Not Available [facility] 06/25/2011 05:21:29 zoster live 0 completed Not Available [facility] 08/27/2019 02:16:11 Past Encounters Encounter ID Performer Location Encounter Start Date Encounter Closed Date Diagnosis/Indication Diagnosis SNOMED-CT Code Diagnosis ICD10 Code [id number] , [facility], OFFICE [address] [place] [address] 09/01/2006 09:12:44 09/01/2006 10:37:13 [id number] [facility], OFFICE [address] [place] [address] 09/01/2006 09:12:44 09/01/2006 10:37:13 [id number] LAB - [address] [address] [id number] [facility], OFFICE [address] [place] [address] 10/26/2006 10:09:47 10/26/2006 12:19:05 [id number] , [facility], OFFICE [address] [place] [address] 04/26/2007 09:00:08 04/26/2007 16:43:46 [id number] [facility], OFFICE [address] [place] [address] 07/30/2007 10:18:49 08/30/2008 02:02:[id number] [address] 07/30/2007 13:12:10 07/30/2007 13:17:52 [id number] LAB - [facility] [address] [place] [address] 08/17/2007 08:22:14 08/17/2007 08:33:01 [id number] [facility], OFFICE [address] [place] [facility] [place] [address] 09/09/2007 09:32:51 08/30/2008 02:02:29 [id number] LAB - [facility] [address] [place] [address] 10/22/2007 08:22:05 10/22/2007 08:31:09 [id number] LAB - [facility] [address] [place] [address] 11/08/2007 15:11:55 11/08/2007 15:12:02 [id number] [facility], OFFICE [address] [place] [address] 12/06/2007 13:45:03 08/30/2008 02:02:29 [id number] [facility], OFFICE [address] [place] [facility] [place] [address] 01/05/2008 08:58:08 08/30/2008 02:02:29 [id number] [facility], OFFICE [address] [place] [facility] [address] 04/14/2008 08:31:35 08/30/2008 02:02:29 [id number] LAB - C [address] [facility] [place] [address] 06/23/2008 08:19:14 06/23/2008 08:26:12 [id number] [facility], OFFICE [address] [place] [facility] [address] 08/28/2008 13:42:43 09/12/2008 02:02:00 [id number] [facility], OFFICE [address] [place] [address] 09/21/2008 08:26:42 09/26/2008 08:20:15 [id number] [facility], OFFICE [address] [place] [facility] [address] 10/02/2008 09:05:36 10/04/2008 11:53:34 [id number] NICOLE C, OFFICE [address] [place] [facility] [address] 10/04/2008 09:00:03 10/10/2008 10:55:14 [id number] FP, C, OFFICE [address] [place] [facility] [address] 10/19/2008 08:28:20 10/20/2008 11:27:00 [id number] FP, C, OFFICE [address] [place] [facility] [address] 03/29/2009 08:34:03 04/03/2009 09:30:21 [id number] FP, C, OFFICE [address] [place] [facility] [address] 05/28/2009 16:42:26 05/30/2009 15:03:05 [id number] Radiology , C [address] [place] [address] 05/29/2009 09:29:31 05/30/2009 11:35:59 [id number] LAB - [facility] [address] [facility] [place] [address] 08/28/2008 14:22:28 08/28/2008 14:33:49 [id number] LAB - [facility] [address] [facility] [place] [address] 04/13/2009 14:13:09 04/13/2009 14:22:01 [id number] LAB - [facility] [address] [facility] [place] [address] 04/23/2009 07:44:51 04/23/2009 07:46:07 [id number] Radiology , C [address] [place] [facility] [address] 05/29/2009 00:00:00 06/07/2009 02:00:52 [id number] , C, OFFICE [address] [place] [address] 06/12/2009 11:12:11 06/14/2009 13:52:19 [id number] FP, C, OFFICE [address] [place] [facility] [address] 07/19/2009 07:19:45 07/24/2009 09:22:14 [id number] FP, E[facility], OFFICE [address] [facility] [place] [address] 09/17/2009 09:00:02 09/19/2009 13:53:47 [id number] , [facility], OFFICE [address] [facility] [place] [address] 10/08/2009 09:37:06 10/11/2009 14:21:07 [id number] , [facility], OFFICE [address] [place] [address] 10/29/2009 09:44:49 10/31/2009 12:24:28 [id number] , [facility], OFFICE [address] [facility] [place] [address] 01/08/2010 09:17:32 01/15/2010 14:15:09 Health Concerns Section Related Observation LastModified by Organization Detai ls LastModified Time None Recorded Concern Status LastModified by Organization Details LastModified Time None Recorded Advance Directives Directive Y: Payers Encounter Date Sequence Insurance Name Policy Number Policy Roberts Covered Member ID Roberts Member ID Guarantor Name 07/19/2009 1 [facility]: MEDICARE PPO BLUE (MEDICARE REPLACEMENT PPO) [id number] Reji F Juan A [id number] Reji Juan A 09/17/2009 1 [facility]: MEDICARE PPO BLUE (MEDICARE REPLACEMENT PPO) [id number] Reji F Juan A [id number] Reji Juan A 10/08/2009 1 [facility]: MEDICARE PPO BLUE (MEDICARE REPLACEMENT PPO) [id number] Reji F Juan A [id number] Reji Juan A 10/29/2009 1 [facility]: MEDICARE PPO BLUE (MEDICARE REPLACEMENT PPO) [id number] Reji F Juan A [id number] Reji Juan A 01/08/2010 1 [facility]: MEDICARE PPO BLUE (MEDICARE REPLACEMENT PPO) [id number] Reji F Juan A [id number] Reji Juan A Notes Date Note Type Note Provider Name and Address Organization Details Recorded Time 07/19/2009 text/html InitializeSe ction( this.parentDorina romero, 1 ); this.removeN nick(true)HPI None recorded. Alessandro Santizo MD [address] [place] [address], [phone], [facility] 07/24/2009 06:44:13 09/17/2009 text/html InitializeSe ction( this.parentN ode, 1 ); this.removeN ode(true)HPI None recorded. Alessandro Santizo MD [address] [place] [address], [phone], [facility] 09/23/2009 13:18:39 10/08/2009 text/html InitializeSe ction( this.parentN ode, 1 ); this.removeN ode(true)HPI None recorded. Rut Salazar RN [facility], [facility] 10/08/2009 11:08:54 10/29/2009 text/html InitializeSe ction( this.parentN ode, 1 ); this.removeN ode(true)HPI None recorded. Alessandro Santizo MD [address] [place] [address], [phone], [facility] 10/29/2009 10:58:03 01/08/2010 text/html InitializeSe ction( this.parentN ode, 1 ); this.removeN ode(true)HPI None recorded. Alessandro Santizo MD [address] [place] [address], [phone], [facility] 01/08/2010 10:11:50
[2024-08-12 16:01] LABS: Thyroid Stimulating Hormone < 0.01 uIU/mL (0.32-4.0)
== END 2024-08-12 10:38 | disposition home or self-care (01) ==
LOC: HO.LAB 10:37
PROVIDERS: Internal Medicine Hypertension Specialist; PCP Internal Medicine; Visit Provider Internal Medicine
DX: I10 Essential (primary) hypertension (principal); R79.89 Other specified abnormal findings of blood chemistry; N18.9 Chronic kidney disease, unspecified; J84.9 Interstitial pulmonary disease, unspecified; K21.9 Gastro-esophageal reflux disease without esophagitis; E78.00 Pure hypercholesterolemia, unspecified; E03.9 Hypothyroidism, unspecified; H81.10 Benign paroxysmal vertigo, unspecified ear; E05.90 Thyrotoxicosis, unspecified without thyrotoxic crisis or storm
CPT/HCPCS: 36415; 80053; 84439; 84443; 99212

== ENCOUNTER 2024-10-10 09:42 | Outpatient (AMB) | payer MEDICARE, OTHER, SELFPAY ==
[2024-10-10 09:42] VITALS: BP 156/62; PULSE 90; O2SAT 97; BMI 24.5
--- NOTE | 2024-10-10 09:42 | HO.NEPHOV_ITS ---
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 Recently hydrochlorothiazide 12.5 mg was added. Subsequently he developed lightheadedness and blood pressure dropped as low as 80 mm Hg systolic. Hydrochlorothiazide was discontinued. He monitors his blood pressure at home and systolic blood pressure is around 120 -130 millimeter of mercury. Baseline creatinine is around 1.2-1.3 mg/dL as of 2020. In April 2023 creatinine bumped up to 1.59 widely was on enalapril 20 mg and hydrochlorothiazide 12.5 mg. No creatinine levels are available after discontinuation of hydrochlorothiazide. He has a history of a complex hepatic cyst and he is being followed by GI. Currently the plan is to monitor him. There was an incidental finding of a right renal cyst which has been documented as a simple cyst 12/10/23; Ray continues her shortness of breath on exertion year pulmonary function tests. He was given bronchodilators which did not help him. He was found to have some interstitial disease. Overall blood pressure seems to be well controlled 05/10/2024. Recently having difficulty with hyperthyroidism. Seen by endocrinology. He has gained weight last visit 10/10/24 From a renal standpoint ,no complaints PFSH Medical History Elevated fasting glucose Prostate cancer Lipid disorder Surgical History H/O colonoscopy History of right shoulder replacement H/O prostatectomy Family History Mother H/O mitral valve replacement Colon cancer Father Cirrhosis, alcoholic Social History Household Members: Spouse Housing: House Alcohol intake: current Alcohol intake frequency: a few times a month Alcohol type: wine Comment: 2x a week 2 glasses Patient Tobacco Use Status: Former Tobacco user Tobacco use type: Cigarette Cigarette Packs Per Day: 1 Years Smoked: stopped 20 years old e-Cigarette/Vaping Use: Never Used Second Hand Smoke Exposure: Yes service: No Current occupational status: retired Cognitive needs: No Hearing needs: No Vision needs: Yes Physical Exam Vital Signs: Last Vital Signs Pulse 90 10/10/24 09:42 BP 136/70 10/10/24 09:51 Pulse Ox 97 10/10/24 09:42 Oxygen Delivery Method Room Air 10/10/24 09:42 BMI result Body Mass Index 24.5 Const General: no acute distress and alert Nutritional Appearance: not obese Orientation/consciousness: patient oriented x3 and Other orientation findings ( oriented) HEENT Head: Yes atraumatic Eyes General: appearance normal, both eyes and all related structures Visual Botello: normal visual botello by confrontation Sclerae: sclerae normal EOM: EOMs intact bilaterally Neck Neck: Yes supple Lymphatic: no lymphadenopathy noted Resp Effort & Inspection: normal respiratory effort and no use of accessory muscles Auscultation: clear to auscultation bilaterally Cardio Palpation: no palpable S3 and no palpable S4 Rate: regular rate Rhythm: regular rhythm Heart sounds: no gallops, no murmurs and no rubs GI Inspection: Yes normal to inspection Palpation (GI): Soft to palpation Percussion: Yes normal to percussion Auscultation: normal bowel sounds General: Yes no CVA tenderness Back/Spine/Pelvis Back: no CVA tenderness Skin General skin exam: other ( warm) Neuro General: patient oriented x3 and no focal motor deficits Extrem General: No clubbing, No cyanosis and No edema Results Reviewed Nephrology Results: Hgb 14.1 g/dl (14.0-18.0) 05/25/24 WBC 8.2 X10*3/uL (4.8-10.8) 05/25/24 Plt Count 333 X10*3/uL (160-400) 05/25/24 Sodium 140 mmol/L (135-145) 08/12/24 Potassium 4.0 mmol/L (3.3-5.1) 08/12/24 Chloride 108 mmol/L (96-108) 08/12/24 Carbon Dioxide 25 mmol/L (22-29) 08/12/24 BUN 16 mg/dL (9-16) 08/12/24 Creatinine 1.20 mg/dL (0.5-1.4) 08/12/24 Calcium 9.1 mg/dL (8.4-10.2) 08/12/24 Urine Protein Trace mg/dL (Neg-Trace) 05/25/24 Urine Creatinine 343.11 mg/dL 05/25/24 Assessment & Plan Assessment & Plan (1) SOB (shortness of breath) on exertion: Code(s): R06.02 - Shortness of breath Category: Medical (2) Hypertension, essential: Code(s): I10 - Essential (primary) hypertension Category: Medical (3) CKD (chronic kidney disease): Code(s): N18.9 - Chronic kidney disease, unspecified Category: Medical Qualifiers: Chronic kidney disease stage 3 subtype: stage 3a (GFR 45-59) (4) SAMAN (acute kidney injury): Code(s): N17.9 - Acute kidney failure, unspecified Category: Medical Plan 77-year-old man with a h/o acute kidney injury superimposed on CKD. Acute kidney injury most likely due to hypoperfusion from a combination of GOPAL inhibitor and hydrochlorothiazide leading to hypotension. He has underlying chronic kidney disease most likely due to hypertensive nephrosclerosis. No evidence of obstruction based on the recent ultrasonogram. No reason to believe that is any active glomerular or interstitial disease at this time. Nevertheless we will rule that out. Mild bump in serum creatinine. Cr back to baseline Continue to avoid using HCTZ for now. Blood pressure is better controlled No changes were made to his antihypertensive regimen I encouraged him to stay on a low-sodium diet. He should monitor his blood pressure at home. Complex hepatic cyst. Being followed by Gastroenterology. Simple right renal cyst. I do not think this needs further intervention at this time. . Coding Level of Care Code Est Pt Level 4 (02351) Diagnoses SOB (shortness of breath) on exertion R06.02 Hypertension, essential I10 CKD (chronic kidney disease) N18.9 Chronic kidney disease stage 3 subtype: stage 3a (GFR 45-59) SAMAN (acute kidney injury) N17.9
[2024-10-10 09:51] VITALS: BP 136/70
--- OUTSIDE RECORDS SUMMARY | 2024-10-10 10:49 | XMS_ITS | Clinical Summary ---
Author Organization [facility] Address [address] [place] [address] Care Team Providers Care Tumbler Tender Name Role Phone Ifeoma Aragon MD Primary Care Provider Unavailabl e Allergies No known active allergies Medications Medication Sig Dispensed Refills Start Date End Date Status pravastatin (PRAVACHOL) 40 MG tablet Take 40 mg by mouth daily. 0 Active enalapril (VASOTEC) 20 MG tablet Take 20 mg by mouth daily. 0 Active pantoprazole (PROTONIX) 40 MG tablet Take 40 mg by mouth daily. 0 Active citalopram (CELEXA) 10 MG tablet Take 10 mg by mouth daily. 0 Active Active Problems Problem Noted Date Hypertension 10/16/2017 Hyperlipidemia 10/16/2017 Depression 10/16/2017 GERD (gastroesophageal reflux disease) 0 10/16/2017 Osteoarthritis 10/16/2017 History of prostate cancer 10/16/2017 Shoulder joint replacement status 2017 Overview: 2015 Pleural thickening 08/28/2017 Asbestos exposure 08/28/2017 Family History Medical History Relation Name Comments Alcohol and Other Drug Abuse Father Liver disease CAD Mother Relation Name Status Comments Father Mother Social History Tobacco Use Types Packs/Day Years Used Date Smoking Tobacco: Former Cigarettes 1 15 Smokeless Tobacco: Never Comments:quit 35 yrs ago Alcohol Use Standard Drinks/Week Comments Yes 0 (1 standard drink = 0.6 oz pur e alcohol) socially Sex Assigned at Date Recorded Not on file Last Filed Vital Signs Vital Sign Reading Time Taken Comments Blood Pressure 128/72 08/28/2017 11:00 AM EST Pulse 97 08/28/2017 11:00 AM EST Temperature - - Respiratory Rate - - Oxygen Saturation 97% 08/28/2017 11: 00 AM EST Inhaled Oxygen Concentration - - Weight 85.2 kg (187 lb 12.8 oz) 018 11:00 AM EST Height 177.8 cm (5' 10 ) 08/28/2017 11: 00 AM EST Body Mass Index 26.95 08/28/2017 11:00 AM EST Plan of Treatment Health Maintenance Due Date Last Done Comments Covid-19 Vaccine (#1) 04/19/1946 DEPRESSION SCREEN 1957 TOBACCO CHECK/ADVISE 10/18/1963 DTAP/TDAP/TD (1 - Tdap) 1964 CHOLESTEROL SCREENING 1965 SHINGLES VACCINE (1 of 2) 10/18/1995 FALL RISK ASSESSMENT 2010 PNEUMOCOCCAL VACCINE (1 - PCV) 2010 INFLUENZA (#1) 2024 BMI CHECK/ADVISE 08/10/2024 Care Teams Tumbler Tender Relationship Specialty Start Date End Date Ifeoma Aragon MD PCP - General Internal Medicine 12/11/22
--- OUTSIDE RECORDS SUMMARY | 2024-10-10 10:49 | XMS_ITS | Data Portability ---
Author Organization [facility], , [facility] Address [address] [place] [address] Care Team Providers Care Channel Account Manager Name Role Phone DRINKERMYCHAL OTHER Assessment No assessment recorded. Plan of Treatment Reminders Order Date Submit Date Provider Last Modified By Organization Details Last Modified Time Details Appointments None recorded. Lab PSA, total 2009 010 [facility], [address] [place] [address], [address], 3 03:53:00 lipid panel 2009 010 [facility], [address] [place] [address], [address], 3 03:53:00 ALT (SGPT) 2009 010 [facility], [address] [place] [address], [address], 3 03:53:00 basic metabolic panel 2009 010 [facility], [address] [place] [address], [address], 3 04:26:12 CBC 2009 010 [facility], [address] [place] [address], [address], 3 03:53:00 Referral None recorded. Procedures None recorded. Surgeries None recorded. Imaging exercise stress test - ongoing chest discomfort 11/06/09 1:10 2009 010 [facility], [address], [address], [place], [address], 3 03:58:12 Medication Orders Ambien 10 mg tablet 2009 010 [facility] #[id number], [address], [place], [id number], 4 02:36:21 fluocinolon e 0.025 % topical cream 2009 010 [facility] #[id number], [address], [place], [id number], 3 03:58:12 enalapril maleate 20 mg tablet 2009 010 [facility], [address] [place] [address], [address], 3 03:58:12 trazodone 50 mg tablet 2009 010 [id number], [address], [place], [id number], 3 03:53:00 Patient TargetsNo targets recorded. Patient Instructions Encounter Date Encounter Id Patient Instructions Last Modified By Organization Details Last Modified Time 09/17/2009 [id number] to do labs , return in 6 weeks and work on wt loss and exercise, consider cortisone inj knee if still an issue, may need to inc BPmeds, to eval lipids , trial of trazodone for insomnia. [email or web address]_ Not available 03/10/2011 02:56:45 10/29/2009 [id number] return in 2m, to do ETT [email or web address]_ Not available 03/10/2011 03:15:45 01/08/2010 [id number] 6m follow up , C V exercise, wt loss [email or web address]_ Not available 03/10/2011 02:50:53 Reason for Referral None Reported. Results Created Date Observation Date Name Description Value Unit Range Abnormal Flag Note LastModifiedBy Organization Detail LastModifiedTime 10/09/1910/08/2009 CBC WBC 6.5 K/?L 4.2-9. 1 Not Available [address], [address], 10/08/2009 11:11:57 10/09/19 10 10/08/2009 CBC RBC 4.91 M/?L 4.63-6 .08 Not Available [address], [address], 10/08/2009 11:11:57 10/09/19 10 10/08/2009 CBC HGB 15.0 g/dL 13.7-1 7.5 Not Available [address], [address], 10/08/2009 11:11:57 10/09/19 10 10/08/2009 CBC HCT 44.7 % 40.1-5 1.0 Not Available [address], [address], 10/08/2009 11:11:57 10/09/19 10 10/08/2009 CBC MCV 91.0 ?L 79.0-9 2.2 Not Available [address], [address], 10/08/2009 11:11:57 10/09/19 10 10/08/2009 CBC MCH 30.5 pg 25.7-3 2.2 Not Available [address], [address], 10/08/2009 11:11:57 10/09/19 10 10/08/2009 CBC MCHC 33.6 g/dL 32.3-3 6.5 Not Available [address], [address], 10/08/2009 11:11:57 10/09/19 10 10/08/2009 CBC plt 348.0 K/?L 163.0- 337.0 high Not Available [address], [address], 10/08/2009 11:11:57 10/09/19 10 10/08/2009 CBC MPV 9.9 9.4-12 .4 Not Available [address], [address], 10/08/2009 11:11:57 10/09/19 10 10/08/2009 CBC neut% 63.0 % 34.0-6 7.9 Not Available [address], [address], 10/08/2009 11:11:57 10/09/19 10 10/08/2009 CBC neut# 4.1 1.8-5. 4 Not Available [address], [address], 10/08/2009 11:11:57 10/09/19 10 10/08/2009 CBC lymph % 17.8 % 21.8-5 3.1 low Not Available [address], [address], 10/08/2009 11:11:57 10/09/19 10 10/08/2009 CBC lymph # 1.2 K/?L 1.3-3. 6 low Not Available [address], [address], 10/08/2009 11:11:57 10/09/19 10 10/08/2009 CBC mono% 15.9 % 5.3-12 .2 high Not Available [address], [address], 10/08/2009 11:11:57 10/09/19 10 10/08/2009 CBC mono# 1.0 0.3-0. 8 high Not Available [address], [address], 10/08/2009 11:11:57 10/09/19 10 10/08/2009 CBC eo% 2.5 % 0.8-7. 0 Not Available [address], [address], 10/08/2009 11:11:57 10/09/19 10 10/08/2009 CBC eo# 0.2 0.0-0. 5 Not Available [address], [address], 10/08/2009 11:11:57 10/09/19 10 10/08/2009 CBC baso% 0.8 % 0.2-1. 2 Not Available [address], [address], 10/08/2009 11:11:57 10/09/19 10 10/08/2009 CBC baso# 0.1 0.0-0. 1 high Not Available [address], [address], 10/08/2009 11:11:57 10/09/19 10 10/08/2009 CBC RDW 13.1 % 11.6-1 4.4 Not Available [address], [address], 10/08/2009 11:11:57 10/09/19 10 10/08/2009 CBC RDW 43.0 fL 35.1-4 3.9 Not Available [address], [address], 10/08/2009 11:11:57 10/09/19 10 10/08/2009 lipid panel cholesterol 178 mg/dL <200 mg/dL karmen able 200-2 39 mg/dL borde rline high >240 mg/dL high Not Available [address], [address], 10/08/2009 15:19:29 10/09/19 10 10/08/2009 lipid panel triglyceride s 75 mg/dL <150 mg/dL cassius l 150-1 99 mg/dL borde rline high 200-4 99 mg/dL high >500 mg/dL very high Not Available [address], [address], 10/08/2009 15:19:29 10/09/19 10 10/08/2009 lipid panel direct HDL 50 mg/dL <40 mg/dL - major risk for CHD >60 mg/dL - negat ladarius risk for CHD Not Available [address], [address], 10/08/2009 15:19:29 10/09/19 10 10/08/2009 lipid panel direct LDL 114 mg/dL risk categ ory LDL goal _ CHD or CHD risk equiv alent s <100 mg/dL (10-y ear risk >20%) 2+ risk facto rs <130 mg/dL (10-y ear risk <= 20%) 0-1 risk facto r? <160 mg/dL ? almos t all peopl e with 0-1 risk facto r have A 10 year risk <10%, thus 10 year risk asses ment in peopl e with 0-1 risk facto r IS not rayo enamorado. Not Available [address], [address], 10/08/2009 15:19:29 10/09/19 10 10/08/2009 basic metab [...] testi ng on A day.) Not Available [address], [address], 10/08/2009 15:19:30 10/09/19 10 10/08/2009 basic metab olic panel BUN 15 mg/dL 7-18 Not Available [address], [address], 10/08/2009 15:19:30 10/09/19 10 10/08/2009 basic metab olic panel creatinine 1.2 mg/dL 0.8-1. 3 Not Available [address], [address], 10/08/2009 15:19:30 10/09/19 10 10/08/2009 basic metab olic panel B/C 12.5 ratio Not Available [address], [address], 10/08/2009 15:19:30 10/09/19 10 10/08/2009 basic metab olic panel GFR 65.0 mL/mi n recom rachel d GFR by the natio nal kidne y found ation >60 mL/mi n/1.7 3M2 - cassius l <60 mL/mi n/1.7 3M2 - chron ic kidne y disea se <15 mL/mi n/1.7 3M2 - kidne y failu re Not Available [address], [address], 10/08/2009 15:19:30 10/09/19 10 10/08/2009 basic metab olic panel GFR - if 78.6 mL/mi n for afric an ameri can patie nts: resul ts multi plied by 1.21 Not Available [address], [address], 10/08/2009 15:19:30 10/09/19 10 10/08/2009 basic metab olic panel sodium 144 mmol/ L 136-14 5 Not Available [address], [address], 10/08/2009 15:19:30 10/09/19 10 10/08/2009 basic metab olic panel potassium 4.8 mmol/ L 3.5-5. 1 Not Available [address], [address], 10/08/2009 15:19:30 10/09/19 10 10/08/2009 basic metab olic panel chloride 107 mmol/ L 96-107 Not Available [address], [address], 10/08/2009 15:19:30 10/09/19 10 10/08/2009 basic metab olic panel _anion gap 11.0 Not Available [address], [address], 10/08/2009 15:19:30 10/09/19 10 10/08/2009 basic metab olic panel CO2 26 mmol/ L 21-32 Not Available [address], [address], 10/08/2009 15:19:30 10/09/19 10 10/08/2009 basic metab olic panel calcium 9.1 mg/dL 8.5-10 .3 Not Available [address], [address], 10/08/2009 15:19:30 10/09/19 10 10/08/2009 ALT (SGPT ) ALT 36 U/L 30-65 Not Available [address], [address], 10/08/2009 15:19:31 10/09/19 10 10/09/2009 PSA, total PSA <0.05 NG/mL 0.00-4 .00 < Not Available [address], [address], 10/09/2009 11:49:45 11/07/19 10 11/06/2009 exerc ise stres s test No observ ation record ed. PHIL Pending 03/05/2013 03:36:07 11/08/19 10 11/06/2009 exerc ise stres s test No observ ation record ed. [facility] [address] [place], [address], 03/05/2013 03:36:07 12/11/19 10 12/07/2009 imagi ng/di agnos tic resul t No observ ation record ed. [facility] [address], [place], [address], 03/04/2013 04:03:33 12/12/1912/07/2009 tread mill nucle ar stres s test No observ ation record ed. PHIL Pending 03/04/2013 04:03:47 Result Notes None recorded. Problems Name Problem SNOMED Code Status Onset Date Resolution Date Notes Provider Name and Address Organization Details Recorded Time Mixed hyperlipid emia 269813485 Active 2006 Not Available [facility] 3 03:14:06 Dyspnea 129889432 Completed 06/29/2013 Not Available [facility] 3 02:02:45 Impotence of organic origin Active 2006 Not Available [facility] 3 03:14:06 Gastroesop hageal reflux disease 303936421 Active 2006 Not Available [facility] 3 03:14:06 Cough 80393230 Completed 06/29/2013 Not Available [facility] 3 02:01:10 Anorectal abscess 43293069 Completed 200706/29/2013 Not Available [facility] 3 02:04:24 Viral disease 21579891 Completed 06/29/2013 Not Available [facility] 3 02:03:22 Fever 787248173 Completed 200806/29/2013 Not Available [facility] 3 02:02:42 Benign essential hypertensi on 1129287 Active 2006 Not Available [facility] 3 03:14:06 Actinic keratosis 862680698 Completed 06/29/2013 Not Available [facility] 3 02:03:15 Influenza 7077486 Completed 06/29/2013 Not Available [facility] 3 02:02:21 Glucose level outside reference range 757612135 Active 2008 Not Available [facility] 3 03:14:06 Insomnia 044058467 Active Not Available [facility] 3 03:14:06 Primary malignant neoplasm of prostate 12383425 Active 2006 Not Available [facility] 3 03:14:06 Atopic dermatitis 66867355 Active 2007 Not Available [facility] 3 03:14:06 Acute upper respirator y infection 44461388 Completed 06/29/2013 Not Available [facility] 3 02:02:17 Abdominal pain 98944655 Completed 200806/29/2013 Not Available [facility] 3 02:01:23 On examinatio n - a rash Completed 200706/29/2013 Not Available [facility] 3 02:00:50 Chest pain 43592243 Completed 06/29/2013 Not Available [facility] 3 02:01:46 Anemia 931520138 Active 2007 Not Available [facility] 3 03:14:06 Localized, primary osteoarthr itis of the shoulder region 964235965 Active Not Available [facility] 3 03:14:06 Hyperlipid emia 08122940 Active 2007 Not Available [facility] 3 03:14:06 Low back pain 879563100 Active 2006 Not Available [facility] 3 03:14:06 Hemorrhoid s 88147166 Active Not Available [facility] 3 03:14:06 Arthropath y 539652824 Active 2006 Not Available [facility] 3 03:14:06 Problem Notes None recorded. Procedures Surgical History Date Name Laterality Status Provider Name and Address Organization Details Recorded Time 09/21/19 09 Vision Screening completed Alessandro Santizo MD [address] [place] [address], [address], [facility] 09/24/2008 22:15:53 09/21/19 09 Corticosteroid Injection completed Alessandro Santizo MD [address] [place] [place] [address], [phone], [facility] 09/24/2008 22:15:53 09/21/19 09 Shave Biopsy completed Alessandro Santizo MD [address] [place] [place] [address], [address], [facility] 09/24/2008 22:15:53 Imaging Results Imaging Date Name Status LastModified by Organiz ation Details LastModified Time 11/06/2009 exercise stress test completed HYDE Pending 03/05/2013 03:36:07 11/06/2009 exercise stress test completed [facility] [address], [place], [address], 03/05/2013 03:36:07 12/07/2009 imaging/diagno stic result completed [facility] [address], [place], [address], 03/04/2013 04:03:33 12/07/2009 treadmill nuclear stress test completed HYDE Pending 03/04/2013 04:03:47 Procedure Notes None recorded. [...] Details Last Updated DateTime 0 170.815 cm 05848.7 7319 g 29.1 kg/m2 76 /min 124 mm[Hg] 78 mm[Hg] Felicita Chaparro [facility] 0 09:34:18 Date Recorded Body height Body weight Body mass index (BMI) Heart rate Systolic blood pressure Diastolic blood pressure Provider Name and Address Organization Details Last Updated DateTime 0 168.275 cm 49171.5 503 g 30.4 kg/m2 88 /min 144 mm[Hg] 84 mm[Hg] Mariela Dunham [facility] 0 09:14:47 Date Recorded Body height Body weight Body mass index (BMI) Systolic blood pressure Diastolic blood pressure Provider Name and Address Organization Details Last Updated DateTime 10/29/2009 170.815 cm 35609.84 1716 g 29.7 kg/m2 134 mm[Hg] 88 mm[Hg] Felicita Chaparro [facility] 0 10:21:01 Social History Question Answer Notes LastModified by Organizat ion Details LastModified Time Tobacco Smoking Status Former Smoker Not Available [facility] 06/26/2011 05:02:19 Do You Have An Advance Directive? 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 7 Information not available 06/26/2011 Marital Status [...] Td(adult) unspecified formulation 7 completed Not Available [facility] 06/25/2011 05:21:29 zoster live 0 completed Not Available [facility] 08/27/2019 02:16:11 Past Encounters Encounter ID Performer Location Encounter Start Date Encounter Closed Date Diagnosis/Indication Diagnosis SNOMED-CT Code Diagnosis ICD10 Code Diagnosis Note [id number] [facility], OFFICE [address] [place] [address] 09/01/2006 09:12:44 09/01/2006 10:37:13 [id number] [facility], OFFICE [address] [place] [address] 09/01/2006 09:12:44 09/01/2006 10:37:13 [id number] LAB - [address] [address] [id number] [facility], OFFICE [address] [place] [address] 10/26/2006 10:09:47 10/26/2006 12:19:05 [id number] [facility], OFFICE [address] [place] [address] 04/26/2007 09:00:08 04/26/2007 16:43:46 [id number] [facility], OFFICE [address] [place] [id number] 07/30/2007 10:18:49 08/30/2008 02:02:29 [id number] LAB - [address] [address] 07/30/2007 13:12:10 07/30/2007 13:17:52 [id number] LAB - [facility] [address] [place] [place] [address] 08/17/2007 08:22:14 08/17/2007 08:33:01 [id number] , [facility], OFFICE [address] [place] [address] 09/09/2007 09:32:51 08/30/2008 02:02:29 [id number] LAB - [facility] [address] [place] [place] [address] 10/22/2007 08:22:05 10/22/2007 08:31:09 [id number] LAB - [facility] [address] [facility] [place] [address] 11/08/2007 15:11:55 11/08/2007 15:12:02 [id number] [facility], OFFICE [address] [place] [facility] [place] [address] 12/06/2007 13:45:03 08/30/2008 02:02:29 [id number] , [facility], OFFICE [address] [place] [facility] [place] [address] 01/05/2008 08:58:08 08/30/2008 02:02:29 [id number] , [facility], OFFICE [address] [place] [facility] [place] [address] 04/14/2008 08:31:35 08/30/2008 02:02:29 [id number] LAB - C [address] [place] [address] 06/23/2008 08:19:14 06/23/2008 08:26:12 [id number] , [facility], OFFICE [address] [place] [facility] [place] [address] 08/28/2008 13:42:43 09/12/2008 02:02:00 [id number] , [facility], OFFICE [address] [place] [facility] [place] [address] 09/21/2008 08:26:42 09/26/2008 08:20:15 [id number] , [facility], OFFICE [address] [place] [address] 10/02/2008 09:05:36 10/04/2008 11:53:34 [id number] , C, OFFICE [address] [place] [facility] [address] 10/04/2008 09:00:03 10/10/2008 10:55:14 [id number] FP, C, OFFICE [address] [place] [facility] [place] [address] 10/19/2008 08:28:20 10/20/2008 11:27:00 [id number] FP, C, OFFICE [address] [place] [facility] [address] 03/29/2009 08:34:03 04/03/2009 09:30:21 [id number] , C, OFFICE [address] [place] [facility] [address] 05/28/2009 16:42:26 05/30/2009 15:03:05 [id number] Radiology , C [address] [place] [facility] [address] 05/29/2009 09:29:31 05/30/2009 11:35:59 [id number] LAB - [facility] [address] [place] [address] 08/28/2008 14:22:28 08/28/2008 14:33:49 [id number] LAB - [facility] [address] [place] [address] 04/13/2009 14:13:09 04/13/2009 14:22:01 [id number] LAB - [facility] [address] [place] [address] 04/23/2009 07:44:51 04/23/2009 07:46:07 [id number] Radiology , C [address] [place] [facility] [place] [address] 05/29/2009 00:00:00 06/07/2009 02:00:52 [id number] , C, OFFICE [address] [place] [facility] [place] [address] 06/12/2009 11:12:11 06/14/2009 13:52:19 [id number] , C, OFFICE [address] [place] [facility] [place] [address] 07/19/2009 07:19:45 07/24/2009 09:22:14 [id number] , [facility], OFFICE [address] [facility] [place] [address] 09/17/2009 09:00:02 09/19/2009 13:53:47 [id number] , [facility], OFFICE [address] [facility] [place] [address] 10/08/2009 09:37:06 10/11/2009 14:21:07 [id number] , [facility], OFFICE [address] [facility] [place] [address] 10/29/2009 09:44:49 10/31/2009 12:24:28 [id number] , [facility], OFFICE [address] [facility] [place] [address] 01/08/2010 09:17:32 01/15/2010 14:15:09 Health Concerns Section Related Observation LastModified by Organization Detai ls LastModified Time None Recorded Concern Status LastModified by Organization Details LastModified Time None Recorded Advance Directives Directive Y: Payers Encounter Date Sequence Insurance Name Policy Number Policy Roberts Covered Member ID Roberts Member ID Guarantor Name 07/19/2009 1 [facility]: MEDICARE PPO BLUE (MEDICARE REPLACEMENT PPO) [id number] Rjei F Juan A [id number] Reji Juan A 09/17/2009 1 [facility]: MEDICARE PPO BLUE (MEDICARE REPLACEMENT PPO) [id number] Reji F Juan A [id number] Reji Juan A 10/08/2009 1 [facility]: MEDICARE PPO BLUE (MEDICARE REPLACEMENT PPO) [id number] Reji F Juan A [id number] Reji Juan A 10/29/2009 1 [facility]: MEDICARE PPO BLUE (MEDICARE REPLACEMENT PPO) [id number] Reji F Juan A [id number] Reji Juan A 01/08/2010 1 [facility]: MEDICARE PPO BLUE (MEDICARE REPLACEMENT PPO) [id number] Reji F Juan A [id number] Reji Juan A Notes Date Note Type Note Provider Name and Address Organization Details Recorded Time 07/19/2009 text/html InitializeSe ction( this.parentN ode, 1 ); this.removeN ode(true)HPI None recorded. Alessandro Santizo MD [address] [place] [place] [address], [phone], [facility] 07/24/2009 06:44:13 09/17/2009 text/html InitializeSe ction( this.parentN ode, 1 ); this.removeN ode(true)HPI None recorded. Alessandro Santizo MD [address] [place] [place] [address], [address], [facility] 09/23/2009 13:18:39 10/08/2009 text/html InitializeSe ction( this.parentN ode, 1 ); this.removeN ode(true)HPI None recorded. Rtu Salazar RN [facility], [facility] 10/08/2009 11:08:54 10/29/2009 text/html InitializeSe ction( this.parentN ode, 1 ); this.removeN ode(true)HPI None recorded. Alessandro Santizo MD [address] [place] [place] [address], [phone], [facility] 10/29/2009 10:58:03 01/08/2010 text/html InitializeSe ction( this.parentN ode, 1 ); this.removeN ode(true)HPI None recorded. Alessandro Santizo MD [address] [place] [place] [address], [address], [facility] 01/08/2010 10:11:50
--- OUTSIDE RECORDS SUMMARY | 2024-10-10 10:49 | XMS_ITS | Continuity of Care Document ---
Author Organization [facility] Address [address] [place] [address] Phone [phone] Care Team Providers Care Knitted Goods Shaper Name Role Phone Ifeoma Aragon Care Team Information Online Producer [phone] Problems Active Problems Provider Date Essential hypertension [...] SIG Qnty Indications Ordering Provider Date Enalapril Onpqqmg17mq Tablets Take 1 Tablet By Mouth Every Day Benny Mcgovern M.D. Pravastatin Osqxdl01ad Tablets Take 1 Tablet By Mouth Every Day Benny Mcgovern M.D. Pantoprazole Kyenxc03fm Tablets DR 1 by mouth every day [...] ng/dL High 0.82-1.77 Laboratory test finding 07/01/2023 [facility] TSH With Reflex To FT4 0.95 uIU/mL (0.4-4.2) Hemoglobin A1c With Est Glucose 01/23/2023 [facility] Hemoglobin A1c 5.6 % (4.0-5.6) 3 Estimated Average Glucose 114 mg/dL Laboratory test finding 01/23/2023 [facility] TSH With Reflex To FT4 1.72 uIU/mL (0.4-4.2) Laboratory test finding 10/07/2022 [facility] TSH With Reflex To FT4 1.45 uIU/mL (0.4-4.2) Free T4 1.36 ng/dL (0.70-1.8 0) Laboratory test finding 08/18/2022 [facility] TSH With Reflex To FT4 1.75 uIU/mL (0.4-4.2) Free T4 1.44 ng/dL (0.70-1.8 0) Laboratory test finding 08/18/2022 [facility] TSH Duplicate order <SEE NOTE> 4 Laboratory test finding 07/10/2022 [facility] TSH With Reflex To FT4 14.70 uIU/mL High (0.4-4.2) Free T4 1.00 ng/dL (0.70-1.8 0) Laboratory test finding 02/19/2022 [facility] Free T4 0.93 ng/dL (0.70-1.8 0) TSH 4.85 uIU/mL High (0.4-4.2) 1 STANDING ORDER 2 Duplicate procedure ordered. 3 MONITORING: In known diabetic patients, hemoglobin A1c targets should be discussed with health care provider. DIAGNOSTIC USE: The [place] [employer] (ADA) and the World Health [...]
--- OUTSIDE RECORDS SUMMARY | 2024-10-10 10:49 | XMS_ITS | Encounter Summary ---
Author Organization [facility] Address [address] [place] [address] Care Team Providers Care Trace Evidence Technician Name Role Phone Benny Mcgovern MD Primary Care Provider [facility] Kenneth, Pcp Primary Care Provider Ifeoma العلي MD Primary Care Provider Jameel e Encounter Details Date Type Department Care Team Description 09/02/2017 Transfer Records Medical Records [address] [place] [address] Abstract, Provider Social History Tobacco Use Types Packs/Day Years Used Date Smoking Tobacco: Former Cigarettes 1 15 Smokeless Tobacco: Never Comments:quit 35 yrs ago Alcohol Use Standard Drinks/Week Comments Yes 0 (1 standard drink = 0.6 oz pur e alcohol) socially Sex Assigned at Date Recorded Not on file documented as of this encounter Plan of Treatment Not on file documented as of this encounter Visit Diagnoses Not on filedocumented in this encounter Care Teams Trace Evidence Technician Relationship Specialty Start Date End Date Benny Mcgovern MD PCP - General Internal Medicine 07/23/1711/10 Kenneth, Pcp PCP - General Internal Medicine 11/11/22 12/10/22 Ifeoma Aragon MD PCP - General Internal Medicine 12/11/22 documented as of this encounter
--- OUTSIDE RECORDS SUMMARY | 2024-10-10 10:49 | XMS_ITS | Encounter Summary ---
Author Organization [facility] Address [address] [place] [address] Care Team Providers Care Square Shear Operator Name Role Phone Benny Mcgovern MD Primary Care Provider [facility] Kenneth, Pcp Primary Care Provider Ifeoma العلي MD Primary Care Provider Jameel e Encounter Details Date Type Department Care Team Description 09/04/2017 Release of Information Medical Records [address] [place] [id number] Abstract, Provider Social History Tobacco Use Types [...] on filedocumented in this encounter Care Teams Square Shear Operator Relationship Specialty Start Date End Date Benny Mcgovern MD PCP - General Internal Medicine 07/23/1711/10 Kenneth Pcp PCP - General Internal Medicine 11/11/22 12/10/22 Ifeoma Aragon MD PCP - General Internal Medicine 12/11/22 documented as of this encounter
== END 2024-10-10 09:56 | disposition home or self-care (01) ==
PROVIDERS: PCP Internal Medicine; Visit Provider Internal Medicine Hypertension Specialist
DX: R06.02 Shortness of breath (principal); I12.9 Hypertensive chronic kidney disease with stage 1 through stage 4 chronic kidney disease, or unspecified chronic kidney disease; N18.9 Chronic kidney disease, unspecified; N17.9 Acute kidney failure, unspecified
CPT/HCPCS: 99214

== ENCOUNTER → 2024-10-10 09:42 | Outpatient (BNVA) | payer MEDICARE, OTHER, SELFPAY | PROVIDERS: PCP Internal Medicine; Visit Provider Internal Medicine Hypertension Specialist | DX: I12.9 Hypertensive chronic kidney disease with stage 1 through stage 4 chronic kidney disease, or unspecified chronic kidney disease (principal); N18.9 Chronic kidney disease, unspecified; N17.9 Acute kidney failure, unspecified; R06.02 Shortness of breath | CPT/HCPCS: 99212 ==

== ENCOUNTER 2024-11-08 12:49 | Outpatient (REF) | payer MEDICARE, OTHER, SELFPAY ==
--- NOTE | ~2024-11-08 | CT_ITS ---
CLINICAL HISTORY: J84.9 - Interstitial pulmonary disease, unspecified CT chest without contrast Comparison: 10/09/2023 Findings: Lung dickson are clear without acute infiltrates. Stable chronic interstitial fibrosis pattern. This is more prominent in lower lobes. Bilateral lower lobe and left lingular bronchiectasis. No significant mediastinal adenopathy. No significant free pleural fluid. Dense coronary artery calcifications. No significant focal bony abnormalities. Right shoulder prosthesis. Impression: Stable interstitial fibrosis and bronchiectasis as above This document has been electronically signed by: Brayan Hughes MD on 11/09/2024 20:42:46
--- OUTSIDE RECORDS SUMMARY | 2024-11-08 14:57 | XMS_ITS | Continuity of Care Document ---
Author Organization [facility] Address [address] [place] [address] Phone [phone] Care Team Providers Care Protozoology Teacher Name Role Phone Ifeoma Aragon Care Team Information Music Artist + [phone] Problems Active Problems Provider Date Essential hypertension [...] SIG Qnty Indications Ordering Provider Date Enalapril Snaw[place]56ys Tablets Take 1 Tablet By Mouth Every Day Benny Mcgovern M.D. Pravastatin [id number] Tablets Take 1 Tablet By Mouth Every Day Benny Mcgovern M.D. Pantoprazole [id number] Tablets DR 1 by mouth every day [...] 00 T4,Free (Direct) 1.79 ng/dL High 0.82-1.77 TSH 02/16/2024 [facility] TSH 0.546 uIU/mL 0.450-4.5 00 Thyroxine (T4) Free, Direct 02/16/2024 [facility] Thyroxine (T4) Free, Direct 1.17 ng/dL 0.82-1.77 TSH Rfx on Abnormal to Free T4 12/02/2023 [facility] TSH RFX On Abnormal To Free T4 0.005 uIU/mL Low 0.450-4.5 00 1 T4,Free (Direct) TNP ng/dL 2 Thyroxine (T4) Free, Direct 12/02/2023 [facility] Thyroxine (T4) Free, Direct 2.07 ng/dL High 0.82-1.77 TSH Rfx on Abnormal to Free T4 10/29/2023 [facility] TSH RFX On Abnormal To Free T4 <0.005 uIU/mL Low 0.450-4.5 00 T4,Free (Direct) 3.37 ng/dL High 0.82-1.77 TSH With Reflex To FT4 07/01/2023 [facility] TSH With Reflex To FT4 0.95 uIU/mL (0.4-4.2) Hemoglobin A1c With Est Glucose 01/23/2023 [facility] Hemoglobin A1c 5.6 % (4.0-5.6) 3 Estimated Average Glucose 114 mg/dL TSH With Reflex To FT4 01/23/2023 [facility] TSH With Reflex To FT4 1.72 uIU/mL (0.4-4.2) TSH With Reflex To FT4 10/07/2022 [facility] TSH With Reflex To FT4 1.45 uIU/mL (0.4-4.2) Free T4 10/07/2022 [facility] Free T4 1.36 ng/dL (0.70-1.8 0) TSH With Reflex To FT4 08/18/2022 [facility] TSH With Reflex To FT4 1.75 uIU/mL (0.4-4.2) Free T4 08/18/2022 [facility] Free T4 1.44 ng/dL (0.70-1.8 0) TSH 08/18/2022 [facility] TSH Duplicate order <SEE NOTE> 4 TSH With Reflex To FT4 07/10/2022 [facility] TSH With Reflex To FT4 14.70 uIU/mL High (0.4-4.2) Free T4 07/10/2022 [facility] Free T4 1.00 ng/dL (0.70-1.8 0) Free T4 02/19/2022 [facility] Free T4 0.93 ng/dL (0.70-1.8 0) TSH 02/19/2022 [facility] TSH 4.85 uIU/mL High (0.4-4.2) 1 STANDING ORDER 2 Duplicate procedure ordered. 3 MONITORING: In known diabetic patients, hemoglobin A1c targets should be discussed with health care provider. DIAGNOSTIC USE: The [place] [employer] (ADA) and the World Health [...] Code Description Provider 02/22/2024 E05.00 Graves' disease Riyana Eric fa, PA Plan of Treatment No Information Available Functional Status Description No Information Available Mental Status Description No Information Available Referrals Description No Information Available
--- OUTSIDE RECORDS SUMMARY | 2024-11-08 14:57 | XMS_ITS | Encounter Summary ---
Author Organization [facility] Address [address] [place] [address] Care Team Providers Care Local Intermodal Truck Driver Name Role Phone Benny Mcgovern MD Primary Care Provider [facility] Kenneth, Pcp Primary Care Provider Ifeoma العلي MD Primary Care Provider Jameel e Encounter Details Date Type Department Care Team Description 09/02/2017 Transfer Records Medical Records [address] [place] [address] Abstract, Provider Social History Tobacco Use Types [...] on filedocumented in this encounter Care Teams Local Intermodal Truck Driver Relationship Specialty Start Date End Date Benny Mcgovern MD PCP - General Internal Medicine 07/23/1711/10 Kenneth, Pcp PCP - General Internal Medicine 11/11/22 12/10/22 Ifeoma Aragon MD PCP - General Internal Medicine 12/11/22 documented as of this encounter
--- OUTSIDE RECORDS SUMMARY | 2024-11-08 14:57 | XMS_ITS | Continuity of Care Document ---
Author Organization [facility] Address [address] [place] [address]- Care Team Providers Care Education And Training Coordinator Name Role Phone Froilan MOELLER, Benny Allred [id number] Date[facility]s): 10/27/24 - 11/03/24 [facility] [address] [place] [address]- Attending Physician: Khanh Puente MD Encounter Type: Office Visit Allergies, Adverse Reactions, Alerts No Known Allergies Medications Citalopram Tablet 10 mg, By Mouth, Daily in AM, Maintenance, 09/29/14 3:20:00 PM EST Start Date: 09/29/14 Status: Ordered Repeat number: 1 Enalapril Tablet 20 mg, By Mouth, Daily in AM, Maintenance, 09/29/14 3:19:08 PM EST Start Date: 09/29/14 Status: Ordered Repeat number: 1 levothyroxine 0.05 mg oral tablet 1 tablet = 50 mcg, By Mouth, Daily, # 30 tablet, 11 Refills, Maintenance, 10/28/24 9:26:00 AM EDT, [facility], Partial fill upon patient request if the prescription is for a schedule II opioid drug., 177.8, cm, 10/27/24 10:06:00 EDT, Height, 77.9, kg, 10/27/24 10:06:00 EDT, Dry Weight Start Date: 10/28/24 Status: Ordered Quantity: 30.0 Unit: tablet Repeat [...] Hypothyroidism Confirmed Active Thyroid nodule Confirmed Active Vital Signs Most recent to oldest [Reference Range]: 1 Height 177.80 cm (10/27/24 10:06 AM) Weight 77.9 kg (10/27/24 10:06 AM) Pulse Rate [55-90 bpm] 75 bpm (10/27/24 10:06 AM) Body Mass Index [18.5-24.99 kg/m2] 24.64 kg/m2 (10/27/24 10:06 AM) Blood Pressure [90-138/55-84 mm Hg] 140/ 69mm Hg *H* (10/27/24 10:06 AM) Blood pressure sites Arm, left (10/27/24 10:06 AM) Dry Weight 77.9 kg (10/27/24 10:06 AM) Weight Obtained Via Standing scale (10/27/24 10:06 AM) Dry Weight Obtained Via Standing scale (10/27/24 10:06 AM) Social History Social History Type Response Smoking Status Never smoker entered on: 10/10/14 Sex Sex Representation Male (finding) Note * Stephanie Means MA: PERFORM Event Display: Patient Education/Instruction Authored Date: [id number] Ambulatory Adult Visit Summary [facility] [address] [place] [address] Name: THOMAS ROSA : 1945?? Visit: 10/27/2024 09:54?? Ambulatory Visit Instructions ?? Your Care Team Primary Care Provider Benny Mcgovern MD? This Visit Provider Khanh Puente MD Your Diagnosis Hypothyroidism Vitals Signs Pulse Rate: 75 bpm Height: 177.8 cm Systolic Blood Pressure:??140 mm Hg??High Weight: 77.9 kg Diastolic Blood Pressure: 69 mm Hg Body Mass Index: 24.64 kg/m2 ?? Body surface area: 1.96 What to do next Follow-Up Appointments Follow Up with??Khanh Puente MD When:??02/16/2025 10:05 AM EDT Why: THYROID Where: [address] [facility] [place] [address]- Future Orders TSH - Routine, Once, 10/27/24 10:35:00 EDT, Future Order, [facility], Blood?? Free T4 - Routine, Once, 10/27/24 10:35:00 EDT, Future Order, [facility], Blood?? T3 Total - Routine, Once, 10/27/24 10:35:00 EDT, Future Order, [facility], Blood?? Medications The list [...] Daily in the morning Unchanged Levothyroxine (levothyroxine 75 mcg (0.075 mg) oral tablet) 1 tab(s) Oral Daily Hypothyroidism [...] your provider. Free T4?-- Results Pending -- T3 Total?-- Results Pending -- TSH?-- Results Pending -- [...] are strongly encouraged to quit. Please call [facility] at [phone] or [phone] ([phone]) or log in to [email or web address] for referrals to smoking cessation programs. ?? The National Suicide Prevention Hotline is available 02/03 if you or someone you know needs to find a reason to keep living. By calling 1-238-576-[employer] (5222) you'll be connected to a skilled, trained counselor at a crisis center in your area. [facility] You can view and manage your care through the patient portal or by using a health care andrade of your choosing. [employer] is a website that allows you to securely view your medical information including your hospital discharge summary, office visit summaries, medications and follow-up visits. You can also request appointments, renew medications, and request access to your medical information using a health care andrade of your choosing, or just ask a question. You can enroll at [email or web address] or register during your next office visit. [facility], in keeping with [facility] guidance, no longer requires face masks for [...] primary care provider, you may find a [facility] provider by calling [facility] at [phone]. Patient Care team information Care Team Personnel Name: Benny Mcgovern MD Position: [facility] Outreach Member Role: PCP Address: [address] [place] [address] MD Froilan, [address] Telecom: Care Team Related Persons Name: NATALIE ROSA Insurance Providers Guarantor name: THOMAS ROSA Health Plan Information #: 2 Payer: [facility] Member Number: [id number] Policy Number: NA Group Number: [id number] Health Plan Information #: 1 Payer: MEDICARE PART B OUTPT Member Number: [id number] Policy Number: NA Group Number: [id number]
--- OUTSIDE RECORDS SUMMARY | 2024-11-08 14:57 | XMS_ITS | Clinical Summary ---
Author Organization [facility] Address [address] [place] [address] Care Team Providers Care Community Planning Technician Name Role Phone Ifeoma Aragon MD Primary [...] (#1) 2024 BMI CHECK/ADVISE 08/10/2024 Care Teams Community Planning Technician Relationship Specialty Start Date End Date Ifeoma Aragon MD PCP - General Internal Medicine 12/11/22
== END 2024-11-08 12:50 | disposition home or self-care (01) ==
LOC: HO.CT 12:49
PROVIDERS: PCP Internal Medicine; Visit Provider Internal Medicine Pulmonary Disease
DX: J84.9 Interstitial pulmonary disease, unspecified (principal)
CPT/HCPCS: 71250

== ENCOUNTER → 2024-11-08 12:51 | Outpatient (BNV) | payer MEDICARE, OTHER, SELFPAY | PROVIDERS: PCP Internal Medicine; Visit Provider Radiology Diagnostic Radiology | DX: J84.10 Pulmonary fibrosis, unspecified (principal); J47.9 Bronchiectasis, uncomplicated | CPT/HCPCS: 71250 ==

== ENCOUNTER 2024-11-21 10:39 | Outpatient (AMB) | payer MEDICARE, OTHER, SELFPAY ==
[2024-11-21 10:42] VITALS: BP 124/66; PULSE 79; TEMP 36.6; O2SAT 96; BMI 24.5
--- NOTE | 2024-11-21 10:42 | MHC.PC.OV ---
Vital Signs 11/21/24 10:42 Height 5 ft 10 in Weight 171 lb BMI 24.5 BP 124/66 Blood Pressure Location Lt brachial Position Sitting Pulse 79 Pulse Source Pulse Oximeter Temp 97.8 F Temp Source Temporal Artery Scan Pulse Oximetry (%) 96 Oxygen Delivery Method Room Air Intake Visit Reasons: hypothyroid, GERD, Allergies hydrochlorothiazide Adverse Reaction (Intermediate, Verified 11/21/24 10:44) Hypotension Medication List - Last Reconciled 11/21/24 by Ifeoma Aragon MD amlodipine 2.5 mg PO DAILY enalapril maleate 20 mg PO DAILY levothyroxine (Synthroid) 25 mcg PO DAILY pantoprazole 40 mg PO QAM pravastatin 40 mg PO DAILY Tobacco use date assessed: 11/21/24 Fall risk assessment: No Falls in past year Last assessed Fall Risk: 11/21/24 Dental Screening Dental Screen Date: 08/12/24 Did you have a dental visit in the last 12 months?: Yes Did you have a dental problem in the last 6 months where you did not have access to dental care?: Yes Was dental information given to patient?: Patient has dentist [facility] Medical History Elevated fasting glucose Prostate cancer Lipid disorder Surgical History H/O colonoscopy History of right shoulder replacement H/O prostatectomy Family History Mother H/O mitral valve replacement Colon cancer Father Cirrhosis, alcoholic Social History Household Members: Spouse Housing: House Alcohol intake: current Alcohol intake frequency: a few times a month Alcohol type: wine Comment: 2x a week 2 glasses Patient Tobacco Use Status: Former Tobacco user Tobacco use type: Cigarette Cigarette Packs Per Day: 1 Years Smoked: stopped 20 years old e-Cigarette/Vaping Use: Never Used Second Hand Smoke Exposure: Yes service: No Current occupational status: retired Cognitive needs: No Hearing needs: No Vision needs: Yes Questionnaire PHQ-9 Over the last 2 weeks, how often have you been bothered by any of the following problems? 1. Little interest or pleasure in doing things: not at all 2. Feeling down, depressed, or hopeless: not at all 3. Trouble falling or staying asleep, or sleeping too much: not at all 4. Feeling tired or having little energy: not at all 5. Poor appetite or overeating: not at all 6. Feeling bad about yourself - or that you are a failure or have let yourself or your family down: not at all 7. Trouble concentrating on things, such as reading the newspaper or watching television: not at all 8. Moving or speaking so slowly that other people could have noticed. Or the opposite - being so fidgety or restless that you have been moving around a lot more than usual: not at all 9. Thoughts that you would be better off or of hurting yourself in some way: not at all Total score: 0 Depression Screening Interpretation: Negative Depression Screening Done: Yes 96542 - PHQ-9 Billing: Yes Source: Developed by Drs. Miguel Lindsey, Lorna Lazcano, Romario Alberto and colleagues, with an educational rosas from [employer]. Thrive Questionnaire Date Thrive assessed: 08/12/24 I am a: Patient What is your living situation today?: I have a steady place to live Within the past 12 months, did the food you bought not last and you didn't have the money to get more?: Never true Within the past 12 months, did you worry whether your food would run out before you got money to buy more?: Never true Do you have trouble paying for medicines?: No Do you have trouble getting transportation to medical appointments?: No Do you have trouble paying your heating and electricity bill?: No Do you have trouble taking care of your child, family member or friend?: No Do you have trouble with day-to-day activities such as bathing, preparing meals, shopping, managing finances, etc.?: No Are you currently unemployed and looking for a job?: No Are you interested in more education?: No Please select the resources that you would like help with: None Currently or been in a relationship where the following occur: No concerns reported THRIVE Score: 0 AUDIT C Alcohol Use Questionnaire (AUDIT-C) 1. How often do you have a drink containing alcohol?: 2-4 times a month 2. How many drinks containing alcohol do you have on a typical day when you are drinking?: 1 or 2 3. How often do you have six or more drinks on one occasion?: Never Total Score: 2 GREGORY-7 AMB Questionnaire GREGORY-7 Date GREGORY - 7 assessed: 04/07/24 Feeling nervous, anxious, or on edge: 0 = Not at all Not being able to stop or control worryin = Not at all Worrying too much about different things: 0 = Not at all Trouble relaxin = Not at all Being so restless that it is hard to sit still: 0 = Not at all Becoming easily annoyed or irritable: 0 = Not at all Feeling afraid as if something awful might happen: 0 = Not at all Total GREGORY-7 score (0-4 normal; 5-9 mild; 10-14 moderate; 15-21 severe): 0 Source: Developed by Drs. Miguel Lindsey, Lorna Lazcano, Romario Alberto and colleagues, with an educational rosas from [employer]. GREGORY-7 Assessment Billing GREGORY-7 Assessment Tool: GREGORY-7 Assessment 84204 Physical exam (Primary Care) Vital Signs: Last Vital Signs Temp 97.8 F 11/21/24 10:42 Pulse 79 11/21/24 10:42 BP 124/66 11/21/24 10:42 Pulse Ox 96 11/21/24 10:42 Oxygen Delivery Method Room Air 11/21/24 10:42 BMI result Body Mass Index 24.5 Tobacco/Smoking Status: Tobacco use Status Tobacco use date assessed 11/21/24 11/21/24 10:45 Patient Tobacco Use Status Former Tobacco user 11/21/24 10:45 Tobacco use type Cigarette 11/21/24 10:45 e-Cigarette/Vaping Use Never Used 11/21/24 10:45 PHQ-9: PHQ-9 Score PHQ-9: Total score 0 11/21/24 11:04 Depression Screening Interpretation: Negative Thrive Assessment: Date of Thrive Assessment Date Thrive assessed 08/12/24 11/21/24 10:45 Currently or been in a relationship where the following occur: No concerns reported Const General: alert; No acute distress Eyes Conjunctivae: conjunctivae normal Resp Auscultation: clear to auscultation bilaterally Cardio Rate: regular rate Rhythm: regular rhythm GI Inspection: Yes normal to inspection Extrem General: Yes normal to inspection and No edema Coding Level of Care Code Est Pt Level 4 (48081) Complex EM visit Add On G2211 Diagnoses Hypertension, essential I10 Hypercholesteremia E78.00 GERD (gastroesophageal reflux disease) K21.9 CKD (chronic kidney disease) N18.9 Chronic kidney disease stage 3 subtype: stage 3a (GFR 45-59) ILD (interstitial lung disease) J84.9 Hypothyroid E03.9 Additional Codes GREGORY-7 Assessment Billing - GREGORY-7 Assessment Tool: GREGORY-7 Assessment 25493 ([id number]) PHQ-9 - 76222 - PHQ-9 Billing: Yes ([id number]) Assessment & Plan Assessment & Plan (1) Hypertension, essential: Code(s): I10 - Essential (primary) hypertension Category: Medical Plan: Continue with blood pressure medication. Decrease salt intake and exercise patient has seen Nephrology on enalapril 20 mg once a day amlodipine 2.5 mg once a day taken off hydrochlorothiazide (2) Hypercholesteremia: Code(s): E78.00 - Pure hypercholesterolemia, unspecified Category: Medical Plan: Avoid fried foods, chicken skin, eggs, butter margarine, pastries and meat. Be it pork or beef they have a lot of cholesterol LDL goal of less than 130 and triglyceride of less than 150 on pravastatin 40 mg once a day (3) GERD (gastroesophageal reflux disease): Code(s): K21.9 - Gastro-esophageal reflux disease without esophagitis Category: Medical Plan: Avoid the foods that causes that usually spicy foods, tomato products, juices, coffee, soda and foods that your sensitive to. After eating do not lie down, allow 3-4 hours before in lie down. And keep the head of bed above 30 degrees to avoid the acid from going up. (4) CKD (chronic kidney disease): Code(s): N18.9 - Chronic kidney disease, unspecified Category: Medical Qualifiers: Chronic kidney disease stage 3 subtype: stage 3a (GFR 45-59) Plan: Keep well hydrated, no more hydrochlorothiazide continue with enalapril and amlodipine (5) ILD (interstitial lung disease): Code(s): J84.9 - Interstitial pulmonary disease, unspecified Category: Medical Plan: Patient had a CAT scan recently under pulmonary stable (6) Hypothyroid: Code(s): E03.9 - Hypothyroidism, unspecified Category: Medical Plan: Patient was advised to have a repeat thyroid test on 75 mcg once a day and the last test had had an Plan History of Present Illness The patient is a 79-year-old male presenting with a follow-up for chronic conditions management. Important elements of the patient's medical history include chronic kidney disease linked to hypertensive nephrosclerosis, hypothyroidism requiring ongoing thyroxine adjustments, and hypercholesterolemia with a goal LDL of less than 130. In October, the patient experienced acute kidney injury, attributed to hypo-perfusion due to hydrochlorothiazide and GOPAL inhibitor use. The hydrochlorothiazide was discontinued, and follow-ups with nephrology indicated improvement in renal function. The thyroid-stimulating hormone (TSH) levels were significantly low, prompting a step-down in levothyroxine dosage. Diagnostic imaging confirming stable findings of interstitial fibrosis and bronchiectasis has not shown progression. The patient manages his GERD through lifestyle interventions advocated previously, with a focus on hydration and medication adherence. In previous months, a cardiolite stress test was normal, excluding acute coronary syndromes. Routine blood work highlighted controlled cholesterol levels but indicated ongoing monitoring for lipid management and renal function. Health Maintenance - Colonoscopy is up to date. - Annual CAT scan for interstitial lung disease monitoring showing stable fibrosis and bronchiectasis. - Cardiovascular evaluation via cardiolite stress test was normal. - Blood pressure management and monitoring. - Hyperlipidemia management with current LDL at 118. - Regular thyroid function monitoring with dose adjustments to levothyroxine. Social History - The patient engages in routine exercise, including treadmill activities, supporting cardiorespiratory fitness. - Reports weight loss, indicative of potential lifestyle or medical adjustments. Review of Systems - Respiratory: Reports chronic productive cough (phlegm). - Cardiovascular: Denies chest pain; previous stress test normal. - Endocrine: Reports ongoing thyroid management. - Renal: Denies urinary symptoms; renal function recently improving. Physical Exam Results - Labs: Recent blood glucose level at 134 mg/dL, LDL cholesterol at 118 mg/dL, TSH less than 0.01. - Imaging: November 08 CAT scan of lungs showing stable interstitial fibrosis and bronchiectasis. - Previous cardiolite stress test results were normal. Plan The management strategy revolves around continued oversight of chronic kidney disease with nephrology input, focusing on medications that minimize renal stress. Thyroid management requires close TSH level monitoring and levothyroxine dose adjustments led by endocrinology. Lipid levels will be carefully controlled with current pravastatin therapy. Blood pressure regulation is achieved through enalapril and amlodipine, carefully balancing renal and cardiovascular interests. Continuation of lifestyle modifications such as adequate hydration is encouraged for GERD relief, while stable pulmonary fibrosis will be monitored with routine imaging. The patient's engagement in exercise is endorsed for cardiovascular maintenance. Patient was informed and verbally consented to the use of an ambient scribe for clinic note documentation during this visit. Discussion Notes Discussions focused on ensuring alignment in managing chronic kidney disease following previous acute kidney injury due to hypo-perfusion. The importance of adherence to nephrology recommendations and medication adjustments was addressed. Adjustments to thyroid medication were reviewed, underlining Dr. Tilley's oversight for optimal hormone balance. The rationale behind maintaining current hypertensive and hyperlipidemic therapies was detailed, emphasizing their preventive roles against further nephropathy and cardiovascular events. Regular monitoring of TSH and lipid levels was planned, alongside lifestyle advice for GERD management. Imaging will continuously appraise pulmonary status for any progression in interstitial fibrosis. The patient was counseled on exercise benefits and lung infection risk reduction through hygiene and vaccination. Patient Instructions - Continue taking prescribed medications as directed: enalapril, amlodipine, and pravastatin. - Monitor blood pressure regularly and report any concerning changes. - Follow the dosage adjustments of thyroid medication as advised by eligibility clerk. - Maintain adequate hydration for GERD management. - Continue with scheduled tests and follow-ups with nephrology and endocrinology. - Engage in regular physical activity and avoid exposure to respiratory infections. - Keep scheduled appointments for blood work and monitoring. - Report significant weight loss or any new symptoms promptly. Orders: Orders Complete Blood Count Auto Diff 5 Months E78.00 - Pure hypercholesterolemia, unspecified Free T4 (Free Thyroxine) 5 Months E78.00 - Pure hypercholesterolemia, unspecified Thyroid Stimulating Hormone 5 Months E78.00 - Pure hypercholesterolemia, unspecified UA w Microscopic 5 Months E78.00 - Pure hypercholesterolemia, unspecified Comprehensive Met. Panel 5 Months E78.00 - Pure hypercholesterolemia, unspecified Lipid Panel 5 Months E78.00 - Pure hypercholesterolemia, unspecified Vitamin B12 and Folate 5 Months E78.00 - Pure hypercholesterolemia, unspecified
--- OUTSIDE RECORDS SUMMARY | 2024-11-21 12:20 | XMS_ITS | Data Portability ---
Author Organization [facility], , [facility] Address [address] [place] [address] Care Team Providers Care Sand Filler Name Role Phone DRINKERMYCHAL OTHER Assessment No assessment recorded. Plan of Treatment Reminders Order Date Submit Date Provider Last Modified By Organization Details Last Modified Time Details Appointments None recorded. Lab PSA, total 2009 010 [facility], [address] [place] [address], [address], 3 03:53:00 lipid panel 2009 010 [facility], [address] [place] [address], [address], 3 03:53:00 ALT (SGPT) 2009 010 [facility], [address] [place] [address], [address], 3 03:53:00 basic metabolic panel 2009 010 [facility], [address] [place] [address], [address], 3 04:26:12 CBC 2009 010 [facility], [address] [place] [address], [address], 3 03:53:00 Referral None recorded. Procedures None recorded. Surgeries None recorded. Imaging exercise stress test - ongoing chest discomfort 11/06/09 1:10 2009 010 [facility], [address], [address], [place], [address], 3 03:58:12 Medication Orders Ambien 10 mg tablet 2009 010 [facility] #[id number], [address], [place], [id number], 4 02:36:21 fluocinolon e 0.025 % topical cream 2009 010 [facility] #[id number], [address], [place], [id number], 3 03:58:12 enalapril maleate 20 mg tablet 2009 010 [facility], [address] [place] [address], [address], 3 03:58:12 trazodone 50 mg tablet 2009 010 [facility] #[id number], [address], [place], [phone], 3 03:53:00 Patient TargetsNo targets recorded. Patient Instructions Encounter Date Encounter Id Patient Instructions Last Modified By Organization Details Last Modified Time 09/17/2009 [id number] to do labs , return in 6 weeks and work on wt loss and exercise, consider cortisone inj knee if still an issue, may need to inc BPmeds, to eval lipids , trial of trazodone for insomnia. [email or web address]_ Not available 03/10/2011 02:56:45 10/29/2009 [id number] return in 2m, to do ETT [email or web address]_ Not available 03/10/2011 03:15:45 01/08/2010 [id number] 6m follow up , C V exercise, wt loss [email or web address]_ Not available 03/10/2011 02:50:53 Reason for Referral None Reported. Results Created Date Observation Date Name Description Value Unit Range Abnormal Flag Note LastModifiedBy Organization Detail LastModifiedTime 10/09/1910/08/2009 CBC WBC 6.5 K/?L 4.2-9. 1 Not Available [address], [address], 10/08/2009 11:11:57 10/09/19 10 10/08/2009 CBC RBC 4.91 M/?L 4.63-6 .08 Not Available [address], [address], 10/08/2009 11:11:57 10/09/19 10 10/08/2009 CBC HGB 15.0 g/dL 13.7-1 7.5 Not Available [address], [address], 10/08/2009 11:11:57 10/09/19 10 10/08/2009 CBC HCT 44.7 % 40.1-5 1.0 Not Available [address], [address], 10/08/2009 11:11:57 10/09/19 10 10/08/2009 CBC MCV 91.0 ?L 79.0-9 2.2 Not Available [address], [address], 10/08/2009 11:11:57 10/09/19 10 10/08/2009 CBC MCH 30.5 pg 25.7-3 2.2 Not Available [address], [address], 10/08/2009 11:11:57 10/09/19 10 10/08/2009 CBC MCHC 33.6 g/dL 32.3-3 6.5 Not Available [address], [address], 10/08/2009 11:11:57 10/09/19 10 10/08/2009 CBC plt 348.0 K/?L 163.0- 337.0 high Not Available [address], [address], 10/08/2009 11:11:57 10/09/19 10 10/08/2009 CBC MPV 9.9 9.4-12 .4 Not Available [address], [address], 10/08/2009 11:11:57 10/09/19 10 10/08/2009 CBC neut% 63.0 % 34.0-6 7.9 Not Available [address], [address], 10/08/2009 11:11:57 10/09/19 10 10/08/2009 CBC neut# 4.1 1.8-5. 4 Not Available [address], [address], 10/08/2009 11:11:57 10/09/19 10 10/08/2009 CBC lymph % 17.8 % 21.8-5 3.1 low Not Available [address], [address], 10/08/2009 11:11:57 10/09/19 10 10/08/2009 CBC lymph # 1.2 K/?L 1.3-3. 6 low Not Available [address], [address], 10/08/2009 11:11:57 10/09/19 10 10/08/2009 CBC mono% 15.9 % 5.3-12 .2 high Not Available [address], [address], 10/08/2009 11:11:57 10/09/19 10 10/08/2009 CBC mono# 1.0 0.3-0. 8 high Not Available [address], [address], 10/08/2009 11:11:57 10/09/19 10 10/08/2009 CBC eo% 2.5 % 0.8-7. 0 Not Available [address], [address], 10/08/2009 11:11:57 10/09/19 10 10/08/2009 CBC eo# 0.2 0.0-0. 5 Not Available [address], [address], 10/08/2009 11:11:57 10/09/19 10 10/08/2009 CBC baso% 0.8 % 0.2-1. 2 Not Available [address], [address], 10/08/2009 11:11:57 10/09/19 10 10/08/2009 CBC baso# 0.1 0.0-0. 1 high Not Available [address], [address], 10/08/2009 11:11:57 10/09/19 10 10/08/2009 CBC RDW 13.1 % 11.6-1 4.4 Not Available [address], [address], 10/08/2009 11:11:57 10/09/19 10 10/08/2009 CBC RDW 43.0 fL 35.1-4 3.9 Not Available [address], [address], 10/08/2009 11:11:57 10/09/19 10 10/08/2009 lipid panel cholesterol 178 mg/dL <200 mg/dL karmen able 200-2 39 mg/dL borde rline high >240 mg/dL high Not Available [address], [address], 10/08/2009 15:19:29 10/09/19 10 10/08/2009 lipid panel triglyceride s 75 mg/dL <150 mg/dL cassius l 150-1 99 mg/dL borde rline high 200-4 99 mg/dL high >500 mg/dL very high Not Available [address], [address], 10/08/2009 15:19:29 10/09/19 10 10/08/2009 lipid panel direct HDL 50 mg/dL <40 mg/dL - major risk for CHD >60 mg/dL - negat ladarius risk for CHD Not Available [address], [address], 10/08/2009 15:19:29 10/09/19 10 10/08/2009 lipid panel [...] r IS not rayo enamorado. Not Available [address], [address], 10/08/2009 15:19:29 10/09/19 10 10/08/2009 basic metab [...] testi ng on A day.) Not Available [address], [address], 10/08/2009 15:19:30 10/09/19 10 10/08/2009 basic metab olic panel BUN 15 mg/dL 7-18 Not Available [address], [address], 10/08/2009 15:19:30 10/09/19 10 10/08/2009 basic metab olic panel creatinine 1.2 mg/dL 0.8-1. 3 Not Available [address], [address], 10/08/2009 15:19:30 10/09/19 10 10/08/2009 basic metab olic panel B/C 12.5 ratio Not Available [address], [address], 10/08/2009 15:19:30 10/09/19 10 10/08/2009 basic metab olic panel GFR 65.0 mL/mi n recom rachel d GFR by the natio nal kidne y found ation >60 mL/mi n/1.7 3M2 - cassius l <60 mL/mi n/1.7 3M2 - chron ic kidne y disea se <15 mL/mi n/1.7 3M2 - kidne y failu re Not Available [address], [address], 10/08/2009 15:19:30 10/09/19 10 10/08/2009 basic metab olic panel GFR - if 78.6 mL/mi n for afric an ameri can patie nts: resul ts multi plied by 1.21 Not Available [address], [address], 10/08/2009 15:19:30 10/09/19 10 10/08/2009 basic metab olic panel sodium 144 mmol/ L 136-14 5 Not Available [address], [address], 10/08/2009 15:19:30 10/09/19 10 10/08/2009 basic metab olic panel potassium 4.8 mmol/ L 3.5-5. 1 Not Available [address], [address], 10/08/2009 15:19:30 10/09/19 10 10/08/2009 basic metab olic panel chloride 107 mmol/ L 96-107 Not Available [address], [address], 10/08/2009 15:19:30 10/09/19 10 10/08/2009 basic metab olic panel _anion gap 11.0 Not Available [address], [address], 10/08/2009 15:19:30 10/09/19 10 10/08/2009 basic metab olic panel CO2 26 mmol/ L 21-32 Not Available [address], [address], 10/08/2009 15:19:30 10/09/19 10 10/08/2009 basic metab olic panel calcium 9.1 mg/dL 8.5-10 .3 Not Available [address], [address], 10/08/2009 15:19:30 10/09/19 10 10/08/2009 ALT (SGPT ) ALT 36 U/L 30-65 Not Available [address], [address], 10/08/2009 15:19:31 10/09/19 10 10/09/2009 PSA, total PSA <0.05 NG/mL 0.00-4 .00 < Not Available [address], [address], 10/09/2009 11:49:45 11/07/19 10 11/06/2009 exerc ise stres s test No observ ation record ed. PHIL Pending 03/05/2013 03:36:07 11/08/19 10 11/06/2009 exerc ise stres s test No observ ation record ed. [facility] [address] [place], [address], 03/05/2013 03:36:07 12/11/19 10 12/07/2009 imagi ng/di agnos tic resul t No observ ation record ed. [facility] [address], [place], [address], 03/04/2013 04:03:33 12/12/1912/07/2009 tread mill nucle ar stres s test No observ ation record ed. PHIL Pending 03/04/2013 04:03:47 Result Notes None recorded. Problems Name Problem SNOMED Code Status Onset Date Resolution Date Notes Provider Name and Address Organization Details Recorded Time Mixed hyperlipid emia 442148310 Active 2006 Not Available [facility] 3 03:14:06 Dyspnea 033036520 Completed 06/29/2013 Not Available [facility] 3 02:02:45 Impotence of organic origin Active 2006 Not Available [facility] 3 03:14:06 Gastroesop hageal reflux disease 339324713 Active 2006 Not Available [facility] 3 03:14:06 Cough 27099387 Completed 06/29/2013 Not Available [facility] 3 02:01:10 Anorectal abscess 70838586 Completed 200706/29/2013 Not Available [facility] 3 02:04:24 Viral disease 38645214 Completed 06/29/2013 Not Available [facility] 3 02:03:22 Fever 556837866 Completed 200806/29/2013 Not Available [facility] 3 02:02:42 Benign essential hypertensi on 6234573 Active 2006 Not Available [facility] 3 03:14:06 Actinic keratosis 753356603 Completed 06/29/2013 Not Available [facility] 3 02:03:15 Influenza 1540190 Completed 06/29/2013 Not Available [facility] 3 02:02:21 Glucose level outside reference range 552214726 Active 2008 Not Available [facility] 3 03:14:06 Insomnia 501533323 Active Not Available [facility] 3 03:14:06 Primary malignant neoplasm of prostate 56281817 Active 2006 Not Available [facility] 3 03:14:06 Atopic dermatitis 51431735 Active 2007 Not Available [facility] 3 03:14:06 Acute upper respirator y infection 67491023 Completed 06/29/2013 Not Available [facility] 3 02:02:17 Abdominal pain 82823697 Completed 200806/29/2013 Not Available [facility] 3 02:01:23 On examinatio n - a rash Completed 200706/29/2013 Not Available [facility] 3 02:00:50 Chest pain 51102668 Completed 06/29/2013 Not Available [facility] 3 02:01:46 Anemia 712477814 Active 2007 Not Available [facility] 3 03:14:06 Localized, primary osteoarthr itis of the shoulder region 854503856 Active Not Available [facility] 3 03:14:06 Hyperlipid emia 94768611 Active 2007 Not Available [facility] 3 03:14:06 Low back pain 875534602 Active 2006 Not Available [facility] 3 03:14:06 Hemorrhoid s 35839839 Active Not Available [facility] 3 03:14:06 Arthropath y 670416725 Active 2006 Not Available [facility] 3 03:14:06 Problem Notes None recorded. Procedures Surgical History Date Name Laterality Status Provider Name and Address Organization Details Recorded Time 09/21/19 09 Vision Screening completed Alessandro Santizo MD [address] [place] [address], [phone], [facility] 09/24/2008 22:15:53 09/21/19 09 Corticosteroid Injection completed Alessandro Santizo MD [address] [place] [address], [phone], [facility] 09/24/2008 22:15:53 09/21/19 09 Shave Biopsy completed Alessandro Santizo MD [address] [place] [address], [phone], [facility] 09/24/2008 22:15:53 Imaging Results Imaging Date Name Status LastModified by Organiz ation Details LastModified Time 11/06/2009 exercise stress test completed RULE Pending 03/05/2013 03:36:07 11/06/2009 exercise stress test completed [facility] [address], [place], [address], 03/05/2013 03:36:07 12/07/2009 imaging/diagno stic result completed [facility] [address], [place], [address], 03/04/2013 04:03:33 12/07/2009 treadmill nuclear stress test completed RULE Pending 03/04/2013 04:03:47 Procedure Notes None recorded. [...] Details Last Updated DateTime 0 170.815 cm 82200.7 7319 g 29.1 kg/m2 76 /min 124 mm[Hg] 78 mm[Hg] Felicita Chaparro [facility] 0 09:34:18 Date Recorded Body height Body weight Body mass index (BMI) Heart rate Systolic blood pressure Diastolic blood pressure Provider Name and Address Organization Details Last Updated DateTime 0 168.275 cm 69729.5 503 g 30.4 kg/m2 88 /min 144 mm[Hg] 84 mm[Hg] Mariela Dunham [facility] 0 09:14:47 Date Recorded Body height Body weight Body mass index (BMI) Systolic blood pressure Diastolic blood pressure Provider Name and Address Organization Details Last Updated DateTime 10/29/2009 170.815 cm 22072.84 1716 g 29.7 kg/m2 134 mm[Hg] 88 mm[Hg] Felicita Chaparro [facility] 0 10:21:01 Social History Question Answer Notes LastModified by Organizat ion Details LastModified Time Tobacco Smoking Status Former Smoker Not Available [facility] 06/26/2011 05:02:19 Do You Have An Advance Directive? 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 [employer] Feeder 7 Information not available 06/26/2011 Marital Status [...] Td(adult) unspecified formulation 7 completed Not Available [facility] 06/25/2011 05:21:29 zoster live 0 completed Not Available [facility] 08/27/2019 02:16:11 Past Encounters Encounter ID Performer Location Encounter Start Date Encounter Closed Date Diagnosis/Indication Diagnosis SNOMED-CT Code Diagnosis ICD10 Code Diagnosis Note [id number] [facility], OFFICE [address] [place] [address] 09/01/2006 09:12:44 09/01/2006 10:37:13 [id number] [facility], OFFICE [address] [place] [address] 09/01/2006 09:12:44 09/01/2006 10:37:13 [id number] LAB - [address] [address] [id number] [facility], OFFICE [address] [place] [address] 10/26/2006 10:09:47 10/26/2006 12:19:05 [id number] [facility], OFFICE [address] [place] [address] 04/26/2007 09:00:08 04/26/2007 16:43:46 [id number] [facility], OFFICE [address] [place] [address] 07/30/2007 10:18:49 08/30/2008 02:02:29 [id number] LAB - [address] [address] 07/30/2007 13:12:10 07/30/2007 13:17:52 [id number] LAB - [facility] [address] [place] [address] 08/17/2007 08:22:14 08/17/2007 08:33:01 [id number] , [facility], OFFICE [address] [facility] [place] [address] 09/09/2007 09:32:51 08/30/2008 02:02:29 [id number] LAB - [facility] [address] [place] [address] 10/22/2007 08:22:05 10/22/2007 08:31:09 [id number] LAB - [facility] [address] [place] [address] 11/08/2007 15:11:55 11/08/2007 15:12:02 [id number] [facility], OFFICE [address] [facility] [place] [address] 12/06/2007 13:45:03 08/30/2008 02:02:29 [id number] , [facility], OFFICE [address] [facility] [place] [address] 01/05/2008 08:58:08 08/30/2008 02:02:29 [id number] , [facility], OFFICE [address] [facility] [place] [address] 04/14/2008 08:31:35 08/30/2008 02:02:29 [id number] LAB - C [address] [facility] [place] [address] 06/23/2008 08:19:14 06/23/2008 08:26:12 [id number] , [facility], OFFICE [address] [facility] [place] [address] 08/28/2008 13:42:43 09/12/2008 02:02:00 [id number] , [facility], OFFICE [address] [facility] [place] [address] 09/21/2008 08:26:42 09/26/2008 08:20:15 [id number] , [facility], OFFICE [address] [facility] [place] [address] 10/02/2008 09:05:36 10/04/2008 11:53:34 [id number] , C, OFFICE [address] [place] [address] 10/04/2008 09:00:03 10/10/2008 10:55:14 [id number] FP, C, OFFICE [address] [place] [address] 10/19/2008 08:28:20 10/20/2008 11:27:00 [id number] FP, C, OFFICE [address] [place] [address] 03/29/2009 08:34:03 04/03/2009 09:30:21 [id number] , C, OFFICE [address] [place] [address] 05/28/2009 16:42:26 05/30/2009 15:03:05 [id number] Radiology , C [address] [place] [address] 05/29/2009 09:29:31 05/30/2009 11:35:59 [id number] LAB - [facility] [address] [facility] [place] [address] 08/28/2008 14:22:28 08/28/2008 14:33:49 [id number] LAB - [facility] [address] [facility] [place] [address] 04/13/2009 14:13:09 04/13/2009 14:22:01 [id number] LAB - [facility] [address] [facility] [place] [address] 04/23/2009 07:44:51 04/23/2009 07:46:07 [id number] Radiology , C [address] [place] [address] 05/29/2009 00:00:00 06/07/2009 02:00:52 [id number] , C, OFFICE [address] [place] [address] 06/12/2009 11:12:11 06/14/2009 13:52:19 [id number] , C, OFFICE [address] [place] [address] 07/19/2009 07:19:45 07/24/2009 09:22:14 [id number] , [facility], OFFICE [address] [facility] [place] [address] 09/17/2009 09:00:02 09/19/2009 13:53:47 [id number] , [facility], OFFICE [address] [facility] [place] [address] 10/08/2009 09:37:06 10/11/2009 14:21:07 [id number] , [facility], OFFICE [address] [facility] [place] [address] 10/29/2009 09:44:49 10/31/2009 12:24:28 [id number] , [facility], OFFICE [address] [facility] [place] [address] 01/08/2010 09:17:32 01/15/2010 14:15:09 Health Concerns Section Related Observation LastModified by Organization Detai ls LastModified Time None Recorded Concern Status LastModified by Organization Details LastModified Time None Recorded Advance Directives Directive Y: Payers Encounter Date Sequence Insurance Name Policy Number Policy Roberts Covered Member ID Roberts Member ID Guarantor Name 07/19/2009 1 [facility]: MEDICARE PPO BLUE (MEDICARE REPLACEMENT PPO) [id number] Reji F Juan A [id number] Reji Juan A 09/17/2009 1 [facility]: MEDICARE PPO BLUE (MEDICARE REPLACEMENT PPO) [id number] Reji F Juan A [id number] Reji Juan A 10/08/2009 1 [facility]: MEDICARE PPO BLUE (MEDICARE REPLACEMENT PPO) [id number] Reji F Juan A [id number] Reji Juan A 10/29/2009 1 [facility]: MEDICARE PPO BLUE (MEDICARE REPLACEMENT PPO) [id number] Reji F Juan A [id number] Reji Juan A 01/08/2010 1 [facility]: MEDICARE PPO BLUE (MEDICARE REPLACEMENT PPO) [id number] Reji F Juan A [id number] Reji Juan A Notes Date Note Type Note Provider Name and Address Organization Details Recorded Time 07/19/2009 text/html InitializeSe ction( this.parentN ode, 1 ); this.removeN ode(true)HPI None recorded. Alessandro Santizo MD [address] [place] [address], [phone], [facility] 07/24/2009 06:44:13 09/17/2009 text/html InitializeSe ction( this.parentN ode, 1 ); this.removeN ode(true)HPI None recorded. Alessandro Santizo MD [address] [place] [address], [phone], [facility] 09/23/2009 13:18:39 10/08/2009 text/html InitializeSe ction( this.parentN ode, 1 ); this.removeN ode(true)HPI None recorded. Rut Salazar RN [facility], [facility] 10/08/2009 11:08:54 10/29/2009 text/html InitializeSe ction( this.parentN ode, 1 ); this.removeN ode(true)HPI None recorded. Alessandro Santizo MD [address] [place] [address], [phone], [facility] 10/29/2009 10:58:03 01/08/2010 text/html InitializeSe ction( this.parentN ode, 1 ); this.removeN ode(true)HPI None recorded. Alessandro Santizo MD [address] [place] [address], [phone], [facility] 01/08/2010 10:11:50
--- OUTSIDE RECORDS SUMMARY | 2024-11-21 12:20 | XMS_ITS | Continuity of Care Document ---
Author Organization [facility] Address [address] [place] [address] Phone [phone] Care Team Providers Care Center Consultant Name Role Phone Ifeoma Aragon Care Team Information Icd 9 Coder + [phone] Problems Active Problems Provider Date Essential hypertension [...] SIG Qnty Indications Ordering Provider Date Enalapril [id number] Tablets Take 1 Tablet By Mouth Every Day Benny Mcgovern M.D. Pravastatin Amnqlq38iq Tablets Take 1 Tablet By Mouth Every Day Benny Mcgovern M.D. Pantoprazole Fkkaat27iq Tablets DR 1 by mouth every day [...] 0.82-1.77 TSH With Reflex To FT4 07/01/2023 [facility] TSH With Reflex To FT4 0.95 uIU/mL (0.4-4.2) Hemoglobin A1c With Est Glucose 01/23/2023 [facility] Hemoglobin A1c 5.6 % (4.0-5.6) 3 Estimated Average Glucose 114 mg/dL TSH With Reflex To FT4 01/23/[address] [facility] TSH With Reflex To FT4 1.72 uIU/mL (0.4-4.2) TSH With Reflex To FT4 10/07/2022 [facility] TSH With Reflex To FT4 1.45 uIU/mL (0.4-4.2) Free T4 10/07/[address] [facility] Free T4 1.36 ng/dL (0.70-1.8 0) TSH With Reflex To FT4 08/18/[address] [facility] TSH With Reflex To FT4 1.75 uIU/mL (0.4-4.2) Free T4 08/18/[address] [facility] Free T4 1.44 ng/dL (0.70-1.8 0) TSH 08/18/[address] [facility] TSH Duplicate order <SEE NOTE> 4 TSH With Reflex To FT4 07/10/[address] [facility] TSH With Reflex To FT4 14.70 uIU/mL High (0.4-4.2) Free T4 07/10/[address] [facility] Free T4 1.00 ng/dL (0.70-1.8 0) Free T4 02/19/[address] [facility] Free T4 0.93 ng/dL (0.70-1.8 0) TSH 02/19/[address] [facility] TSH 4.85 uIU/mL High (0.4-4.2) 1 STANDING ORDER 2 Duplicate procedure ordered. 3 MONITORING: In known diabetic patients, hemoglobin A1c targets should be discussed with health care provider. DIAGNOSTIC USE: The [place] [employer] (ADA) and the World Health [...]
== END 2024-11-21 11:15 | disposition home or self-care (01) ==
PROVIDERS: PCP Internal Medicine; Visit Provider Internal Medicine
DX: I12.9 Hypertensive chronic kidney disease with stage 1 through stage 4 chronic kidney disease, or unspecified chronic kidney disease (principal); J84.9 Interstitial pulmonary disease, unspecified; N18.9 Chronic kidney disease, unspecified; E78.00 Pure hypercholesterolemia, unspecified; K21.9 Gastro-esophageal reflux disease without esophagitis; E03.9 Hypothyroidism, unspecified

== ENCOUNTER → 2024-11-21 10:39 | Outpatient (BNVA) | payer MEDICARE, OTHER, SELFPAY | PROVIDERS: PCP Internal Medicine; Visit Provider Internal Medicine | DX: I12.9 Hypertensive chronic kidney disease with stage 1 through stage 4 chronic kidney disease, or unspecified chronic kidney disease (principal); N18.9 Chronic kidney disease, unspecified; E03.9 Hypothyroidism, unspecified; K21.9 Gastro-esophageal reflux disease without esophagitis; I10 Essential (primary) hypertension; E78.00 Pure hypercholesterolemia, unspecified; J84.9 Interstitial pulmonary disease, unspecified | CPT/HCPCS: 96127; 99212 ==

== ENCOUNTER 2024-12-06 13:29 | Outpatient (AMB) | payer MEDICARE, OTHER, SELFPAY ==
[2024-12-06 13:35] VITALS: BP 137/62; PULSE 85; O2SAT 95; BMI 25.0
--- NOTE | 2024-12-06 13:35 | A.OFFVIS_ITS ---
Vital Signs 12/06/24 13:35 Height 5 ft 10 in Weight 174 lb BMI 25.0 BP 137/62 Blood Pressure Location Rt brachial Position Sitting Pulse 85 Pulse Source Doppler Pulse Oximetry (%) 95 Oxygen Delivery Method Room Air Intake Visit Reasons: Shortness of breath Allergies hydrochlorothiazide Adverse Reaction (Intermediate, Verified 12/06/24 13:42) Hypotension HPI HPI Shortness of breath: Details: 79-year-old gentleman, nonsmoker, referred for evaluation of intermittent dyspnea on exertion with underlying mild pulmonary fibrosis. He continuous essentially asymptomatic from his underlying mild fibrosis and bronchiectasis. His CT chest demonstrates stable findings. [facility] Medical History Elevated fasting glucose Prostate cancer Lipid disorder Surgical History H/O colonoscopy History of right shoulder replacement H/O prostatectomy Family History Mother H/O mitral valve replacement Colon cancer Father Cirrhosis, alcoholic Social History Household Members: Spouse Housing: House Alcohol intake: current Alcohol intake frequency: a few times a month Alcohol type: wine Comment: 2x a week 2 glasses Patient Tobacco Use Status: Former Tobacco user Tobacco use type: Cigarette Cigarette Packs Per Day: 1 Years Smoked: stopped 20 years old e-Cigarette/Vaping Use: Never Used Second Hand Smoke Exposure: Yes service: No Current occupational status: retired Cognitive needs: No Hearing needs: No Vision needs: Yes Review of Systems Const Denies daytime sleepiness, Denies excessive sweating, Denies fatigue, Denies fever(s), Denies lethargy, Denies malaise, Denies night sweats, Denies snoring and Denies weight loss Eyes Denies blurry vision and Denies itchy eyes ENT Denies nasal congestion, Denies post nasal drip, Denies sinus pain, Denies sinus pressure and Denies other ( Thrush) Card Denies chest pain, Denies pedal edema, Denies dyspnea, Denies orthopnea and Denies paroxysmal nocturnal dyspnea Resp Denies cough, Denies hemoptysis, Denies excessive phlegm production, Denies dyspnea, Denies snoring and Denies wheezing GI Denies abdominal pain and Denies heartburn Musc Denies myalgias, Denies arthralgias and Denies joint swelling Skin/Breast Denies rash Neuro Denies memory loss and Denies seizure-like activity Psych Denies abnormal sleep pattern, Denies anxiety and Denies memory loss Endo Denies excessive sweating, Denies fatigue and Denies heat intolerance Peter/Lymph Denies easy bruising Aller/Immun Denies itchy eyes, Denies seasonal rhinorrhea and Denies wheezing Physical Exam Vital Signs: Last Vital Signs Pulse 85 12/06/24 13:35 BP 137/62 12/06/24 13:35 Pulse Ox 95 12/06/24 13:35 Oxygen Delivery Method Room Air 12/06/24 13:35 BMI result Body Mass Index 25.0 Const General: no acute distress and alert Nutritional Appearance: not obese Orientation/consciousness: Other orientation findings ( oriented) HEENT Head: Yes atraumatic Eyes General: appearance normal, both eyes and all related structures Sclerae: sclerae normal EOM: EOMs intact bilaterally Neck Neck: Yes supple Lymphatic: no lymphadenopathy noted Resp Effort & Inspection: normal respiratory effort and no use of accessory muscles Auscultation: clear to auscultation bilaterally Cardio Rate: regular rate Rhythm: regular rhythm Heart sounds: no gallops, no murmurs and no rubs Skin General skin exam: other ( warm) Extrem General: No clubbing, No cyanosis and No edema Assessment & Plan Assessment & Plan (1) ILD (interstitial lung disease): Code(s): J84.9 - Interstitial pulmonary disease, unspecified Category: Medical (2) Bronchiectasis: Code(s): J47.9 - Bronchiectasis, uncomplicated Category: Medical (3) H/O asbestosis: Comment: hx asbestosis exposure Code(s): Z87.09 - Personal history of other diseases of the respiratory system Category: Medical Plan Results of follow-up CT chest reviewed, stable parenchymal findings. Continues to be essentially asymptomatic. Continue with imaging monitoring, neck CT in 12 months. Orders: Orders CT chest wo IV con 11/27/25 J84.9 - Interstitial pulmonary disease, unspecified Coding Level of Care Code Est Pt Level 4 (15786) Diagnoses ILD (interstitial lung disease) J84.9 Bronchiectasis J47.9 H/O asbestosis Z87.09
--- OUTSIDE RECORDS SUMMARY | 2024-12-06 15:33 | XMS_ITS | Data Portability ---
Author Organization [facility], , [facility] Address [address] [place] [address] Care Team Providers Care Power Project Manager Name Role Phone DRINKERMYCHAL OTHER Assessment No assessment recorded. Plan of Treatment Reminders Order Date Submit Date Provider Last Modified By Organization Details Last Modified Time Details Appointments None recorded. Lab PSA, total 2009 010 [facility], [address] [place] [address], [address], 3 03:53:00 lipid panel 2009 010 [facility], [address] [place] [address], [address], 3 03:53:00 ALT (SGPT) 2009 010 [facility], [address] [place] [address], [address], 3 03:53:00 basic metabolic panel 2009 010 [facility], [address] [place] [address], [address], 3 04:26:12 CBC 2009 010 [facility], [address] [place] [address], [address], 3 03:53:00 Referral None recorded. Procedures None recorded. Surgeries None recorded. Imaging exercise stress test - ongoing chest discomfort 11/06/09 1:10 2009 010 [facility], [address], [address], [place], [address], 3 03:58:12 Medication Orders Ambien 10 mg tablet 2009 010 [facility] #[id number], [address], [place], [id number], 4 02:36:21 fluocinolon e 0.025 % topical cream 2009 010 [facility] #[id number], [address], [place], [id number], 3 03:58:12 enalapril maleate 20 mg tablet 2009 010 [facility], [address] [place] [address], [address], 3 03:58:12 trazodone 50 mg tablet 2009 010 [facility] #[id number], [address], [place], [phone], 3 03:53:00 Patient TargetsNo targets recorded. Patient Instructions Encounter Date Encounter Id Patient Instructions Last Modified By Organization Details Last Modified Time 09/17/2009 [id number] to do labs , return in 6 weeks and work on wt loss and exercise, consider cortisone inj knee if still an issue, may need to inc BPmeds, to eval lipids , trial of trazodone for insomnia. [email or web address]_ Not available 03/10/2011 02:56:45 10/29/2009 [id number] return in 2m, to do ETT [email or web address]_ Not available 03/10/2011 03:15:45 01/08/2010 [id number] 6m follow up , C V exercise, wt loss [email or web address]_ Not available 03/10/2011 02:50:53 Reason for Referral None Reported. Results Created Date Observation Date Name Description Value Unit Range Abnormal Flag Note LastModifiedBy Organization Detail LastModifiedTime 10/09/1910/08/2009 CBC WBC 6.5 K/?L 4.2-9. 1 Not Available [address], [address], 10/08/2009 11:11:57 10/09/19 10 10/08/2009 CBC RBC 4.91 M/?L 4.63-6 .08 Not Available [address], [address], 10/08/2009 11:11:57 10/09/19 10 10/08/2009 CBC HGB 15.0 g/dL 13.7-1 7.5 Not Available [address], [address], 10/08/2009 11:11:57 10/09/19 10 10/08/2009 CBC HCT 44.7 % 40.1-5 1.0 Not Available [address], [address], 10/08/2009 11:11:57 10/09/19 10 10/08/2009 CBC MCV 91.0 ?L 79.0-9 2.2 Not Available [address], [address], 10/08/2009 11:11:57 10/09/19 10 10/08/2009 CBC MCH 30.5 pg 25.7-3 2.2 Not Available [address], [address], 10/08/2009 11:11:57 10/09/19 10 10/08/2009 CBC MCHC 33.6 g/dL 32.3-3 6.5 Not Available [address], [address], 10/08/2009 11:11:57 10/09/19 10 10/08/2009 CBC plt 348.0 K/?L 163.0- 337.0 high Not Available [address], [address], 10/08/2009 11:11:57 10/09/19 10 10/08/2009 CBC MPV 9.9 9.4-12 .4 Not Available [address], [address], 10/08/2009 11:11:57 10/09/19 10 10/08/2009 CBC neut% 63.0 % 34.0-6 7.9 Not Available [address], [address], 10/08/2009 11:11:57 10/09/19 10 10/08/2009 CBC neut# 4.1 1.8-5. 4 Not Available [address], [address], 10/08/2009 11:11:57 10/09/19 10 10/08/2009 CBC lymph % 17.8 % 21.8-5 3.1 low Not Available [address], [address], 10/08/2009 11:11:57 10/09/19 10 10/08/2009 CBC lymph # 1.2 K/?L 1.3-3. 6 low Not Available [address], [address], 10/08/2009 11:11:57 10/09/19 10 10/08/2009 CBC mono% 15.9 % 5.3-12 .2 high Not Available [address], [address], 10/08/2009 11:11:57 10/09/19 10 10/08/2009 CBC mono# 1.0 0.3-0. 8 high Not Available [address], [address], 10/08/2009 11:11:57 10/09/19 10 10/08/2009 CBC eo% 2.5 % 0.8-7. 0 Not Available [address], [address], 10/08/2009 11:11:57 10/09/19 10 10/08/2009 CBC eo# 0.2 0.0-0. 5 Not Available [address], [address], 10/08/2009 11:11:57 10/09/19 10 10/08/2009 CBC baso% 0.8 % 0.2-1. 2 Not Available [address], [address], 10/08/2009 11:11:57 10/09/19 10 10/08/2009 CBC baso# 0.1 0.0-0. 1 high Not Available [address], [address], 10/08/2009 11:11:57 10/09/19 10 10/08/2009 CBC RDW 13.1 % 11.6-1 4.4 Not Available [address], [address], 10/08/2009 11:11:57 10/09/19 10 10/08/2009 CBC RDW 43.0 fL 35.1-4 3.9 Not Available [address], [address], 10/08/2009 11:11:57 10/09/19 10 10/08/2009 lipid panel cholesterol 178 mg/dL <200 mg/dL karmen able 200-2 39 mg/dL borde rline high >240 mg/dL high Not Available [address], [address], 10/08/2009 15:19:29 10/09/19 10 10/08/2009 lipid panel triglyceride s 75 mg/dL <150 mg/dL cassius l 150-1 99 mg/dL borde rline high 200-4 99 mg/dL high >500 mg/dL very high Not Available [address], [address], 10/08/2009 15:19:29 10/09/19 10 10/08/2009 lipid panel direct HDL 50 mg/dL <40 mg/dL - major risk for CHD >60 mg/dL - negat ladarius risk for CHD Not Available [address], [address], 10/08/2009 15:19:29 10/09/19 10 10/08/2009 lipid panel [...] r IS not rayo enamorado. Not Available [address], [address], 10/08/2009 15:19:29 10/09/19 10 10/08/2009 basic metab [...] testi ng on A day.) Not Available [address], [address], 10/08/2009 15:19:30 10/09/19 10 10/08/2009 basic metab olic panel BUN 15 mg/dL 7-18 Not Available [address], [address], 10/08/2009 15:19:30 10/09/19 10 10/08/2009 basic metab olic panel creatinine 1.2 mg/dL 0.8-1. 3 Not Available [address], [address], 10/08/2009 15:19:30 10/09/19 10 10/08/2009 basic metab olic panel B/C 12.5 ratio Not Available [address], [address], 10/08/2009 15:19:30 10/09/19 10 10/08/2009 basic metab olic panel GFR 65.0 mL/mi n recom rachel d GFR by the natio nal kidne y found ation >60 mL/mi n/1.7 3M2 - cassius l <60 mL/mi n/1.7 3M2 - chron ic kidne y disea se <15 mL/mi n/1.7 3M2 - kidne y failu re Not Available [address], [address], 10/08/2009 15:19:30 10/09/19 10 10/08/2009 basic metab olic panel GFR - if 78.6 mL/mi n for afric an ameri can patie nts: resul ts multi plied by 1.21 Not Available [address], [address], 10/08/2009 15:19:30 10/09/19 10 10/08/2009 basic metab olic panel sodium 144 mmol/ L 136-14 5 Not Available [address], [address], 10/08/2009 15:19:30 10/09/19 10 10/08/2009 basic metab olic panel potassium 4.8 mmol/ L 3.5-5. 1 Not Available [address], [address], 10/08/2009 15:19:30 10/09/19 10 10/08/2009 basic metab olic panel chloride 107 mmol/ L 96-107 Not Available [address], [address], 10/08/2009 15:19:30 10/09/19 10 10/08/2009 basic metab olic panel _anion gap 11.0 Not Available [address], [address], 10/08/2009 15:19:30 10/09/19 10 10/08/2009 basic metab olic panel CO2 26 mmol/ L 21-32 Not Available [address], [address], 10/08/2009 15:19:30 10/09/19 10 10/08/2009 basic metab olic panel calcium 9.1 mg/dL 8.5-10 .3 Not Available [address], [address], 10/08/2009 15:19:30 10/09/19 10 10/08/2009 ALT (SGPT ) ALT 36 U/L 30-65 Not Available [address], [address], 10/08/2009 15:19:31 10/09/19 10 10/09/2009 PSA, total PSA <0.05 NG/mL 0.00-4 .00 < Not Available [address], [address], 10/09/2009 11:49:45 11/07/19 10 11/06/2009 exerc ise stres s test No observ ation record ed. [facility] Pending 03/05/2013 03:36:07 11/08/19 10 11/06/2009 exerc ise stres s test No observ ation record ed. [facility] [address] [place], [address], 03/05/2013 03:36:07 12/11/19 10 12/07/2009 imagi ng/di agnos tic resul t No observ ation record ed. [facility] [address], [place], [address], 03/04/2013 04:03:33 12/12/1912/07/2009 tread mill nucle ar stres s test No observ ation record ed. [facility] Pending 03/04/2013 04:03:47 Result Notes None recorded. Problems Name Problem SNOMED Code Status Onset Date Resolution Date Notes Provider Name and Address Organization Details Recorded Time Mixed hyperlipid emia 401750519 Active 2006 Not Available [facility] 3 03:14:06 Dyspnea 280157907 Completed 06/29/2013 Not Available [facility] 3 02:02:45 Impotence of organic origin Active 2006 Not Available [facility] 3 03:14:06 Gastroesop hageal reflux disease 954029693 Active 2006 Not Available [facility] 3 03:14:06 Cough 00986197 Completed 06/29/2013 Not Available [facility] 3 02:01:10 Anorectal abscess 99764102 Completed 200706/29/2013 Not Available [facility] 3 02:04:24 Viral disease 22390031 Completed 06/29/2013 Not Available [facility] 3 02:03:22 Fever 784240715 Completed 200806/29/2013 Not Available [facility] 3 02:02:42 Benign essential hypertensi on 7316675 Active 2006 Not Available [facility] 3 03:14:06 Actinic keratosis 922494105 Completed 06/29/2013 Not Available [facility] 3 02:03:15 Influenza 6484000 Completed 06/29/2013 Not Available [facility] 3 02:02:21 Glucose level outside reference range 887619278 Active 2008 Not Available [facility] 3 03:14:06 Insomnia 759558224 Active Not Available [facility] 3 03:14:06 Primary malignant neoplasm of prostate 59742961 Active 2006 Not Available [facility] 3 03:14:06 Atopic dermatitis 29150218 Active 2007 Not Available [facility] 3 03:14:06 Acute upper respirator y infection 15861709 Completed 06/29/2013 Not Available [facility] 3 02:02:17 Abdominal pain 12285548 Completed 200806/29/2013 Not Available [facility] 3 02:01:23 On examinatio n - a rash Completed 200706/29/2013 Not Available [facility] 3 02:00:50 Chest pain 31207584 Completed 06/29/2013 Not Available [facility] 3 02:01:46 Anemia 449311575 Active 2007 Not Available [facility] 3 03:14:06 Localized, primary osteoarthr itis of the shoulder region 594618190 Active Not Available [facility] 3 03:14:06 Hyperlipid emia 58044071 Active 2007 Not Available [facility] 3 03:14:06 Low back pain 684090885 Active 2006 Not Available [facility] 3 03:14:06 Hemorrhoid s 77798922 Active Not Available [facility] 3 03:14:06 Arthropath y 389031214 Active 2006 Not Available [facility] 3 03:14:06 Problem Notes None recorded. Procedures Surgical History Date Name Laterality Status Provider Name and Address Organization Details Recorded Time 09/21/19 09 Vision Screening completed Alessandro Santizo MD [address] [place] [address], [phone], [facility] 09/24/2008 22:15:53 09/21/19 09 Corticosteroid Injection completed Alessandro Santizo MD [address] [place] [address], [phone], [facility] 09/24/2008 22:15:53 09/21/19 09 Shave Biopsy completed Alessandro Santizo MD [address] [place] [address], [phone], [facility] 09/24/2008 22:15:53 Imaging Results Imaging Date Name Status LastModified by Organiz ation Details LastModified Time 11/06/2009 exercise stress test completed [place] Pending 03/05/2013 03:36:07 11/06/2009 exercise stress test completed [facility] [address], [place], [address], 03/05/2013 03:36:07 12/07/2009 imaging/diagno stic result completed [facility] [address], [place], [address], 03/04/2013 04:03:33 12/07/2009 treadmill nuclear stress test completed [place] Pending 03/04/2013 04:03:47 Procedure Notes None recorded. [...] Details Last Updated DateTime 0 170.815 cm 61423.7 7319 g 29.1 kg/m2 76 /min 124 mm[Hg] 78 mm[Hg] Felicita Chaparro [facility] 0 09:34:18 Date Recorded Body height Body weight Body mass index (BMI) Heart rate Systolic blood pressure Diastolic blood pressure Provider Name and Address Organization Details Last Updated DateTime 0 168.275 cm 97992.5 503 g 30.4 kg/m2 88 /min 144 mm[Hg] 84 mm[Hg] Mariela Dunham [facility] 0 09:14:47 Date Recorded Body height Body weight Body mass index (BMI) Systolic blood pressure Diastolic blood pressure Provider Name and Address Organization Details Last Updated DateTime 10/29/2009 170.815 cm 36520.84 1716 g 29.7 kg/m2 134 mm[Hg] 88 mm[Hg] Felicita Chaparro [facility] 0 10:21:01 Social History Question Answer Notes LastModified by Organizat ion Details LastModified Time Tobacco Smoking Status Former Smoker Not Available [facility] 06/26/2011 05:02:19 Do You Have An Advance Directive? 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 Information not available 06/26/2011 Marital Status [...] Td(adult) unspecified formulation 7 completed Not Available [facility] 06/25/2011 05:21:29 zoster live 0 completed Not Available [facility] 08/27/2019 02:16:11 Past Encounters Encounter ID Performer Location Encounter Start Date Encounter Closed Date Diagnosis/Indication Diagnosis SNOMED-CT Code Diagnosis ICD10 Code Diagnosis Note [id number] [facility], OFFICE [address] [place] [address] 09/01/2006 09:12:44 09/01/2006 10:37:13 [id number] [facility], OFFICE [address] [place] [address] 09/01/2006 09:12:44 09/01/2006 10:37:13 [id number] LAB - [address] [address] [id number] [facility], OFFICE [address] [place] [address] 10/26/2006 10:09:47 10/26/2006 12:19:05 [id number] [facility], OFFICE [address] [place] [address] 04/26/2007 09:00:08 04/26/2007 16:43:46 [id number] [facility], OFFICE [address] [place] [address] 07/30/2007 10:18:49 08/30/2008 02:02:29 [id number] LAB - [address] [address] 07/30/2007 13:12:10 07/30/2007 13:17:52 [id number] LAB - [facility] [address] [facility] [place] [address] 08/17/2007 08:22:14 08/17/2007 08:33:01 [id number] , [facility], OFFICE [address] [place] [address] 09/09/2007 09:32:51 08/30/2008 02:02:29 [id number] LAB - [facility] [address] [facility] [place] [address] 10/22/2007 08:22:05 10/22/2007 08:31:09 [id number] LAB - [facility] [address] [facility] [place] [address] 11/08/2007 15:11:55 11/08/2007 15:12:02 [id number] [facility], OFFICE [address] [place] [address] 12/06/2007 13:45:03 08/30/2008 02:02:29 [id number] , [facility], OFFICE [address] [place] [address] 01/05/2008 08:58:08 08/30/2008 02:02:29 [id number] , [facility], OFFICE [address] [place] [address] 04/14/2008 08:31:35 08/30/2008 02:02:29 [id number] LAB - C [address] [place] [address] 06/23/2008 08:19:14 06/23/2008 08:26:12 [id number] , [facility], OFFICE [address] [place] [address] 08/28/2008 13:42:43 09/12/2008 02:02:00 [id number] , [facility], OFFICE [address] [place] [address] 09/21/2008 08:26:42 09/26/2008 08:20:15 [id number] , [facility], OFFICE [address] [place] [address] 10/02/2008 09:05:36 10/04/2008 11:53:34 [id number] , C, OFFICE [address] [place] [facility] [place] [address] 10/04/2008 09:00:03 10/10/2008 10:55:14 [id number] FP, C, OFFICE [address] [place] [facility] [place] [address] 10/19/2008 08:28:20 10/20/2008 11:27:00 [id number] FP, C, OFFICE [address] [place] [facility] [place] [address] 03/29/2009 08:34:03 04/03/2009 09:30:21 [id number] , C, OFFICE [address] [place] [facility] [address] 05/28/2009 16:42:26 05/30/2009 15:03:05 [id number] Radiology , C [address] [place] [facility] [place] [address] 05/29/2009 09:29:31 05/30/2009 11:35:59 [id number] LAB - [facility] [address] [facility] [place] [address] 08/28/2008 14:22:28 08/28/2008 14:33:49 [id number] LAB - [facility] [address] [facility] [place] [address] 04/13/2009 14:13:09 04/13/2009 14:22:01 [id number] LAB - [facility] [address] [facility] [place] [address] 04/23/2009 07:44:51 04/23/2009 07:46:07 [id number] Radiology , C [address] [place] [facility] [place] [address] 05/29/2009 00:00:00 06/07/2009 02:00:52 [id number] , C, OFFICE [address] [place] [facility] [place] [address] 06/12/2009 11:12:11 06/14/2009 13:52:19 [id number] , C, OFFICE [address] [place] [facility] [place] [address] 07/19/2009 07:19:45 07/24/2009 09:22:14 [id number] , [facility], OFFICE [address] [facility] [place] [address] 09/17/2009 09:00:02 09/19/2009 13:53:47 [id number] , [facility], OFFICE [address] [facility] [place] [address] 10/08/2009 09:37:06 10/11/2009 14:21:07 [id number] , [facility], OFFICE [address] [facility] [place] [address] 10/29/2009 09:44:49 10/31/2009 12:24:28 [id number] , [facility], OFFICE [address] [facility] [place] [address] 01/08/2010 09:17:32 01/15/2010 14:15:09 Health Concerns Section Related Observation LastModified by Organization Detai ls LastModified Time None Recorded Concern Status LastModified by Organization Details LastModified Time None Recorded Advance Directives Directive Y: Payers Encounter Date Sequence Insurance Name Policy Number Policy Roberts Covered Member ID Roberts Member ID Guarantor Name 07/19/2009 1 [facility]: [place]IC[place] BLUE (MEDICARE REPLACEMENT PPO) [id number] Reji F Juan A [id number] Reji Juan A 09/17/2009 1 [facility]: [place]IC[place] P[place] BLUE (MEDICARE REPLACEMENT PPO) [id number] Reji F Juan A [id number] Reji Juan A 10/08/2009 1 [facility]: MEDICARE PPO BLUE (MEDICARE REPLACEMENT PPO) [id number] Reji F Juan A [id number] Reji Juan A 10/29/2009 1 [facility]: [place]UE (MEDICARE REPLACEMENT PPO) [id number] Reji F Juan A [id number] Reji Juan A 01/08/2010 1 [facility]: MEDICARE PPO BLUE (MEDICARE REPLACEMENT PPO) [id number] Reji F Juan A [id number] Reji Juan A Notes Date Note Type Note Provider Name and Address Organization Details Recorded Time 07/19/2009 text/html InitializeSe ction( this.parentN ode, 1 ); this.removeN ode(true)HPI None recorded. Alessandro Santizo MD [address] [place] [address], [phone], [facility] 07/24/2009 06:44:13 09/17/2009 text/html InitializeSe ction( this.parentN ode, 1 ); this.removeN ode(true)HPI None recorded. Alessandro Santizo MD [address] [place] [address], [phone], [facility] 09/23/2009 13:18:39 10/08/2009 text/html InitializeSe ction( this.parentN ode, 1 ); this.removeN ode(true)HPI None recorded. Rut Salazar RN [facility], [facility] 10/08/2009 11:08:54 10/29/2009 text/html InitializeSe ction( this.parentN ode, 1 ); this.removeN ode(true)HPI None recorded. Alessandro Santizo MD [address] [place] [address], [phone], [facility] 10/29/2009 10:58:03 01/08/2010 text/html InitializeSe ction( this.parentN ode, 1 ); this.removeN ode(true)HPI None recorded. Alessandro Santizo MD [address] [place] [address], [phone], [facility] 01/08/2010 10:11:50
== END 2024-12-06 15:27 | disposition home or self-care (01) ==
LOC: HO.HPS 13:30
PROVIDERS: PCP Nurse Practitioner Family; Visit Provider Internal Medicine Pulmonary Disease
DX: J84.9 Interstitial pulmonary disease, unspecified (principal); J47.9 Bronchiectasis, uncomplicated; Z87.09 Personal history of other diseases of the respiratory system
CPT/HCPCS: 99214

== ENCOUNTER → 2024-12-06 13:29 | Outpatient (BNVA) | payer MEDICARE, OTHER, SELFPAY | PROVIDERS: PCP Nurse Practitioner Family; Visit Provider Internal Medicine Pulmonary Disease | DX: J84.9 Interstitial pulmonary disease, unspecified (principal); J47.9 Bronchiectasis, uncomplicated; Z87.09 Personal history of other diseases of the respiratory system | CPT/HCPCS: 99212 ==

== ENCOUNTER 2025-01-31 12:55 | Outpatient (AMB) | payer MEDICARE, OTHER, SELFPAY ==
--- NOTE | 2025-01-31 12:58 | A.OFFVIS_ITS ---
Vital Signs 01/31/25 12:59 Height 5 ft 10 in Weight 173 lb BMI 24.8 BP 128/70 Blood Pressure Location Lt brachial Position Sitting Pulse 76 Pulse Source Monitor Intake Visit Reasons: 1 yr f/up Allergies hydrochlorothiazide Adverse Reaction (Intermediate, Verified 12/06/24 13:42) Hypotension Medication List - Last Reconciled 01/31/25 by Jesús Wyatt MD amlodipine 2.5 mg PO DAILY enalapril maleate 20 mg PO DAILY levothyroxine (Synthroid) 25 mcg PO DAILY pantoprazole 40 mg PO QAM pravastatin 40 mg PO DAILY HPI Comments Details: Reji returns for follow-up. In the past, he was seen regarding shortness of breath. He underwent workup with an echocardiogram as well as stress test which were unremarkable. He has pulmonary issues including interstitial lung disease/bronchiectasis/asbestosis and follows up with Pulmonary for the same. Otherwise, on medications for hypertension dyslipidemia. He states that for the most part he is feeling fine. Some shortness of breath with severe activity, but otherwise stable. No clear-cut angina or any other cardiac specific concerns. [facility] Medical History Elevated fasting glucose Prostate cancer Lipid disorder Surgical History H/O colonoscopy History of right shoulder replacement H/O prostatectomy Family History Mother H/O mitral valve replacement Colon cancer Father Cirrhosis, alcoholic Social History Household Members: Spouse Housing: House Alcohol intake: current Alcohol intake frequency: a few times a month Alcohol type: wine Comment: 2x a week 2 glasses Patient Tobacco Use Status: Former Tobacco user Tobacco use type: Cigarette Cigarette Packs Per Day: 1 Years Smoked: stopped 20 years old e-Cigarette/Vaping Use: Never Used Second Hand Smoke Exposure: Yes service: No Current occupational status: retired Cognitive needs: No Hearing needs: No Vision needs: Yes Review of Systems Const Denies weakness ENT Denies dizziness Card Denies chest pain, Denies chest pain with activity, Denies syncope, Denies rapid heart rate, Denies pedal edema, Denies edema, Denies leg edema, Denies lightheadedness, Denies palpitations, Denies dyspnea, Denies dyspnea on exertion and Denies orthopnea Resp Denies cough, Denies dyspnea and Denies dyspnea on exertion GI Denies hematochezia and Denies change in stool character Musc Denies abnormal gait, Denies muscle cramps, Denies muscle weakness, Denies numbness, Denies radiating pain into limb and Denies tingling Neuro Denies abnormal gait, Denies dizziness, Denies syncope, Denies numbness, Denies tingling and Denies weakness Endo Denies palpitations Physical Exam Vital Signs: Last Vital Signs Pulse 76 01/31/25 12:59 BP 128/70 01/31/25 12:59 BMI result Body Mass Index 24.8 Const General: comfortable and no acute distress Orientation/consciousness: patient oriented x3 HEENT Other: Unremarkable Head: Yes normal to inspection Neck Neck: Yes normal visual inspection Chest Chest palpation & inspection: normal inspection of the chest Resp Auscultation: clear to auscultation bilaterally Cardio Palpation: normal PMI Heart sounds: S1 normal heart sound present, S2 normal heart sound present, no gallops, no murmurs and no rubs GI Palpation (GI): Soft to palpation Back/Spine/Pelvis Other: unremarkable Skin General skin exam: no rashes or lesions noted Neuro General: patient oriented x3 Extrem General: Yes normal to inspection Psych Mental Status: mental status grossly normal Office Procedures EKG Details: EKG with underlying sinus rhythm at 76/Min; leftward axis; voltage criteria for LVH; [place] [id number], Complete Assessment & Plan Assessment & Plan (1) Coronary artery calcification seen on CT scan: Code(s): I25.10 - Atherosclerotic heart disease of [place] coronary artery without angina pectoris Category: Medical Plan: In the echocardiogram, LVEF 60-65%. Mild diastolic dysfunction. Mild aortic/mitral calcification. Myocardial perfusion imaging study reported have normal perfusion. In the exercise portion, he is able to do 7 METS. In the chest CT scan, description of coronary artery calcifications which is not uncommon in his age. He also has chronic interstitial fibrosis pattern and bronchiectasis. Clinically, he does not have any angina. On statins. LDL is 118 mg/dL. May switch to a more potent statin like atorvastatin. Discussed about this today and he is agreeable. Follow up labs already in place through his PCP and he can get that in few months. (2) Hypertension, essential: Code(s): I10 - Essential (primary) hypertension Category: Medical Plan: On amlodipine, enalapril. Stable. Plan Total time spent including review of data, counseling, documentation, coordination of care-31 minutes. Medications: New atorvastatin (Lipitor) 40 mg PO QPM 90 tabs 1RF Discontinued pravastatin Discontinued Reason: Doctor's Order 40 mg PO DAILY 90 tabs 3RF R73.02 - Impaired glucose tolerance (oral) Coding Level of Care Code Est Pt Level 4 (18243) Complex EM visit Add On G2211 Diagnoses Coronary artery calcification seen on CT scan I25.10 Hypertension, essential I10 CPT Codes EKG - CPT: 16222-[id number], Complete ([id number])
[2025-01-31 12:59] VITALS: BP 128/70; PULSE 76; BMI 24.8
--- OUTSIDE RECORDS SUMMARY | 2025-01-31 14:34 | XMS_ITS | Patient Health Record ---
Author Organization [facility] Address [address] [place] [id number] Care Team Providers Care Machine Assembler For Puller Over Name Role Phone Miguel Haynes Unavailable [phone] Reason For Referral No Information Plan Of Treatment No Information
== END 2025-01-31 13:19 | disposition home or self-care (01) ==
LOC: HO.HCS 12:56
PROVIDERS: PCP Internal Medicine; Visit Provider Internal Medicine
DX: I25.10 Atherosclerotic heart disease of native coronary artery without angina pectoris (principal); I10 Essential (primary) hypertension
CPT/HCPCS: 93010; 99214; G2211

== ENCOUNTER → 2025-01-31 12:55 | Outpatient (BNVA) | payer MEDICARE, OTHER, SELFPAY | PROVIDERS: PCP Internal Medicine; Visit Provider Internal Medicine | DX: I25.10 Atherosclerotic heart disease of native coronary artery without angina pectoris (principal); I10 Essential (primary) hypertension; R94.31 Abnormal electrocardiogram [ECG] [EKG] | CPT/HCPCS: 93005; 99212 ==

== ENCOUNTER 2025-04-06 14:00 | Outpatient (AMB) | payer MEDICARE, OTHER, SELFPAY ==
[2025-04-06 14:02] VITALS: BP 154/82; PULSE 86; O2SAT 95; BMI 25.4
--- NOTE | 2025-04-06 14:02 | MHC.PC.OV ---
Vital Signs 04/06/25 14:02 Height 5 ft 10 in Weight 177 lb BMI 25.4 BP 154/82 H Blood Pressure Location Lt brachial Position Sitting Pulse 86 Pulse Source Pulse Oximeter Pulse Oximetry (%) 95 Oxygen Delivery Method Room Air Intake Visit Reasons: ? Shingle Allergies hydrochlorothiazide Adverse Reaction (Intermediate, Verified 04/06/25 14:03) Hypotension Medication List - Last Reconciled 04/06/25 by Ifeoma Aragon MD amlodipine 2.5 mg PO DAILY atorvastatin (Lipitor) 40 mg PO QPM enalapril maleate 20 mg PO DAILY levothyroxine (Synthroid) 25 mcg PO DAILY pantoprazole 40 mg PO QAM valacyclovir 1,000 mg PO Q8H 7 days Tobacco use date assessed: 11/21/24 Fall risk assessment: No Falls in past year Last assessed Fall Risk: 04/06/25 Dental Screening Dental Screen Date: 08/12/24 HPI ? Shingle HPI Details started last week L abdominal pain- - noted rash on the PFSH Medical History Elevated fasting glucose Prostate cancer Lipid disorder Surgical History H/O colonoscopy History of right shoulder replacement H/O prostatectomy Family History Mother H/O mitral valve replacement Colon cancer Father Cirrhosis, alcoholic Social History Household Members: Spouse Housing: House Alcohol intake: current Alcohol intake frequency: a few times a month Alcohol type: wine Comment: 2x a week 2 glasses Patient Tobacco Use Status: Former Tobacco user Tobacco use type: Cigarette Cigarette Packs Per Day: 1 Years Smoked: stopped 20 years old Packs Per Year: 0 e-Cigarette/Vaping Use: Never Used Second Hand Smoke Exposure: Yes service: No Current occupational status: retired Cognitive needs: No Hearing needs: No Vision needs: Yes Questionnaire PHQ-9 Over the last 2 weeks, how often have you been bothered by any of the following problems? 1. Little interest or pleasure in doing things: not at all 2. Feeling down, depressed, or hopeless: not at all 3. Trouble falling or staying asleep, or sleeping too much: not at all 4. Feeling tired or having little energy: not at all 5. Poor appetite or overeating: not at all 6. Feeling bad about yourself - or that you are a failure or have let yourself or your family down: not at all 7. Trouble concentrating on things, such as reading the newspaper or watching television: not at all 8. Moving or speaking so slowly that other people could have noticed. Or the opposite - being so fidgety or restless that you have been moving around a lot more than usual: not at all 9. Thoughts that you would be better off or of hurting yourself in some way: not at all Total score: 0 Depression Screening Interpretation: Negative Depression Screening Done: Yes Source: Developed by Drs. Miguel Lindsey, Lorna Lazcano, Romario Alberto and colleagues, with an educational rosas from [employer]. Thrive Questionnaire Date Thrive assessed: 08/12/24 AUDIT C Alcohol Use Questionnaire (AUDIT-C) 1. How often do you have a drink containing alcohol?: 2-4 times a month 2. How many drinks containing alcohol do you have on a typical day when you are drinking?: 1 or 2 3. How often do you have six or more drinks on one occasion?: Never Total Score: 2 GREGORY-7 AMB Questionnaire GREGORY-7 Date GREGORY - 7 assessed: 04/06/25 Feeling nervous, anxious, or on edge: 0 = Not at all Not being able to stop or control worryin = Not at all Worrying too much about different things: 0 = Not at all Trouble relaxin = Not at all Being so restless that it is hard to sit still: 0 = Not at all Becoming easily annoyed or irritable: 0 = Not at all Feeling afraid as if something awful might happen: 0 = Not at all Total GREGORY-7 score (0-4 normal; 5-9 mild; 10-14 moderate; 15-21 severe): 0 Source: Developed by Drs. Miguel Lindsey, Lorna Lazcano, Romario Alberto and colleagues, with an educational rosas from [employer]. Physical exam (Primary Care) Vital Signs: Last Vital Signs Pulse 86 04/06/25 14:02 BP 154/82 H 04/06/25 14:02 Pulse Ox 95 04/06/25 14:02 Oxygen Delivery Method Room Air 04/06/25 14:02 BMI result Body Mass Index 25.4 Tobacco/Smoking Status: Tobacco use Status Tobacco use date assessed 11/21/24 04/06/25 14:06 Patient Tobacco Use Status Former Tobacco user 04/06/25 14:06 Tobacco use type Cigarette 04/06/25 14:06 e-Cigarette/Vaping Use Never Used 04/06/25 14:06 PHQ-9: PHQ-9 Score PHQ-9: Total score 0 04/06/25 14:22 Depression Screening Interpretation: Negative Thrive Assessment: Date of Thrive Assessment Date Thrive assessed 08/12/24 04/06/25 14:06 Back/Spine/Pelvis Back/spine/pelvis image:  1. Multiple papular vesicular erythematous rash on the left mid back 2. Three maculopapular vesicular erythematous rash Coding Level of Care Code Est Pt Level 3 (12500) Diagnoses Shingles B02.9 GERD (gastroesophageal reflux disease) K21.9 Assessment & Plan Assessment & Plan (1) Shingles: Code(s): B02.9 - Zoster without complications Category: Medical (2) GERD (gastroesophageal reflux disease): Code(s): K21.9 - Gastro-esophageal reflux disease without esophagitis Category: Medical Plan: Avoid the foods that causes that usually spicy foods, tomato products, juices, coffee, soda and foods that your sensitive to. After eating do not lie down, allow 3-4 hours before in lie down. And keep the head of bed above 30 degrees to avoid the acid from going up. Plan History of Present Illness The patient is a 79-year-old male presenting with an acute problem related to abdominal pain and shingles. The patient has a history of hypertension, hypercholesterolemia, hyperthyroidism, gastroesophageal reflux disease, chronic kidney disease, interstitial lung disease, and coronary artery disease. 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 The abdominal pain started approximately one week ago and was located on the left side and back. The patient was diagnosed with shingles, which was believed to be the cause of the severe pain experienced. The patient received a shingles vaccination prior to 2014, which was a single-dose vaccine with 50% efficacy. The patient is currently experiencing itchiness rather than significant pain from the shingles. The patient has been under stress due to his 's hip fracture six months ago, which may have contributed to the shingles outbreak. Health Maintenance - Shingles vaccination received prior to 2014, single-dose with 50% efficacy. Social History - The patient is experiencing stress due to his 's hip fracture six months ago, which has increased his responsibilities at home. Review of Systems - Gastrointestinal: Reports abdominal pain on the left side and back for approximately one week. - Dermatological: Reports itchiness from shingles, denies significant pain. Physical Exam Results Plan Patient was informed and verbally consented to the use of an ambient scribe for clinic note documentation during this visit. 1. Shingles The patient was diagnosed with shingles, presenting with severe pain and itchiness. An antiviral medication was prescribed to be taken three times a day for seven days to shorten the duration of the outbreak. The patient was advised to avoid contact with individuals who have not had chickenpox or the vaccine, as well as those who are immunocompromised, until the scabs have fallen off. The patient was informed that the pain is unpredictable and to report any significant pain for further management. 2. Hypertension The patient's hypertension was acknowledged as part of his medical history, but no specific management changes were discussed during this visit. 3. Hypercholesterolemia The patient's hypercholesterolemia was noted in his medical history, with no specific management changes discussed during this visit. 4. Hyperthyroidism The patient's hyperthyroidism was acknowledged as part of his medical history, with no specific management changes discussed during this visit. 5. Gastroesophageal Reflux Disease (Gerd) The patient was previously prescribed pantoprazole for GERD, and a refill was discussed during the visit. 6. Chronic Kidney Disease The patient's chronic kidney disease was noted in his medical history, with no specific management changes discussed during this visit. 7. Interstitial Lung Disease The patient's interstitial lung disease was acknowledged as part of his medical history, with no specific management changes discussed during this visit. 8. Coronary Artery Disease The patient's coronary artery disease was noted in his medical history, with no specific management changes discussed during this visit. Discussion Notes I discussed with the patient the diagnosis of shingles and the plan to manage it with antiviral medication to shorten the duration of the outbreak. I advised the patient to avoid contact with individuals who have not had chickenpox or the vaccine, as well as those who are immunocompromised, until the scabs have fallen off. I informed the patient that the pain is unpredictable and to report any significant pain for further management. Patient Instructions - Take the prescribed antiviral medication three times a day for seven days. - Avoid contact with individuals who have not had chickenpox or the vaccine, and those who are immunocompromised, until the scabs have fallen off. - Report any significant pain for further management. Medications: New valacyclovir 1,000 mg PO Q8H 21 tabs 0RF 7 days B02.9 - Zoster without complications pantoprazole 40 mg PO QAM 90 tabs 2RF K21.9 - Gastro-esophageal reflux disease without esophagitis
--- OUTSIDE RECORDS SUMMARY | 2025-04-06 14:49 | XMS_ITS | Patient Health Record ---
Author Organization [facility] Address [address] [place] [address] Care Team Providers Care [employer] Team Member Name Role Phone Po Ifeoma MOELLER Primary Care Provider Miguel Kyle [phone] Allergies No Known Allergies Reason For Referral No Information Medications Medication SIG (Take, Route, Frequency, Duration) [...] a day for 30 day(s) 04/06/2025 Active Immunizations Vaccine Route Administration Date Status Comme nts Influenza Unknown 05/24/2024 Administered Social History Tobacco Use: Social History Observation Description Date Details (start date - stop date) Never Smoker NA - NA Tobacco Control (Standard) Question Answer Notes Tobacco use: Nonsmoker AUDIT-C (Standard) Question Answer Notes Did you have a drink containing alcohol in the p ast year? No Points 0 Interpretation Negative Section Notes: No sig EtOH Vital Signs Temperature 99.3 degrees Fahrenheit 04/06/2025 Blood pressure diastolic 01 mm Hg 04/06/2025 Height 69 in 04/06/2025 Blood pressure systolic 001 mm Hg 04/06/2025 Weight 177.4 lbs 04/06/2025 BMI 26.19 kg/m2 04/06/2025 Encounters Encounter Location Date Provider Diagnosis [facility] [address] [place] [address] 04/06/2025 Miguel Haynes Left lower quadrant abdominal [...] advised of his progress. Plan Of Treatment No Information Insurance Providers Payer Name Payer Address Payer Phone Subscriber Number Group Number Insured Name Patient Relationship to Insured Coverage Start Date Coverage End Date MEDICARE OF MARILYN BRICE [address] [id number] THOMAS ROSA Self - patient is the insured 9 [facility] [address] [place] [address] [phone] [id number] THOMAS ROSA Self - patient is the insured 5 Medical (General) History Medical History History ICD Code HTN Prostate cancer with surgery as below Denies [place],DM,CVA,renal disease Negative colonoscopy in [address] Onel torres Interstitial pulmonary disease-sees Dr. Sharma Hypothyroidism GERD- He has undergone a pre vious upper endoscopy with me in 2009 that revealed a reported hiatal hernia but no reported esophagitis or Barber's esophagus. Surgical History Surgery Date(Month/Year) Right shoulder replacement 2014 Prostatectomy 1997
--- OUTSIDE RECORDS SUMMARY | 2025-04-06 14:49 | XMS_ITS | Continuity of Care Document ---
Author Organization [facility] [address] [place] [address] Phone [phone] Care Team Providers Care Elevator Starter Name Role Phone Ifeoma Aragon Care Team Information [employer] + [phone] Problems Active Problems Provider Date Essential hypertension René Eid M.D. Ons et: 02/26/2022 Hypercholesterolemia René Eid M.D. 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 Onset: 02/26/2022 Gastroesophageal reflux disease René Eid M.D. Onset: 01/23/2023 Dyspnea on exertion René Eid M.D. Onset: 12/30/2023 Social History Type Date Description Comments Sex Male Sex Unknown Marital Status Has been 1 time Lives With Spouse Sleep Reports normal sleep activit y Sleep Typically sleeps 7 hours a n ight Work Status Retired Tobacco Use Start: Unknown Never Used Smokeless Tobac co ETOH Use Occasionally consumes alcoho l Allergies and adverse reactions Description No Known Drug Allergies Medications Active Medications SIG Qnty Indications Ordering Provider Date Enalapril [id number] Tablets Take 1 Tablet By Mouth Every Day Benny Mcgovern M.D. Pravastatin [id number] Tablets Take 1 Tablet By Mouth Every Day Benny Mcgovern M.D. Pantoprazole [id number] Tablets DR 1 by mouth every day [...] 0.82-1.77 TSH With Reflex To FT4 07/01/2023 [facility] TSH With Reflex To FT4 0.95 uIU/mL (0.4-4.2) Hemoglobin A1c With Est Glucose 01/23/2023 [facility] Hemoglobin A1c 5.6 % (4.0-5.6) 3 Estimated Average Glucose 114 mg/dL TSH With Reflex To FT4 01/23/2023 [facility] TSH With Reflex To FT4 1.72 uIU/mL (0.4-4.2) TSH With Reflex To FT4 10/07/2022 [facility] TSH With Reflex To FT4 1.45 uIU/mL (0.4-4.2) Free T4 10/07/2022 [facility] Free T4 1.36 ng/dL (0.70-1.8 0) TSH With Reflex To FT4 08/18/2022 [facility] TSH With Reflex To FT4 1.75 uIU/mL (0.4-4.2) Free T4 08/18/2022 [facility] Free T4 1.44 ng/dL (0.70-1.8 0) TSH 08/18/2022 [facility] TSH Duplicate order <SEE NOTE> 4 TSH With Reflex To FT4 07/10/2022 [facility] TSH With Reflex To FT4 14.70 uIU/mL High (0.4-4.2) Free T4 07/10/2022 [facility] Free T4 1.00 ng/dL (0.70-1.8 0) Free T4 02/19/2022 [facility] Free T4 0.93 ng/dL (0.70-1.8 0) TSH 02/19/2022 [facility] TSH 4.85 uIU/mL High (0.4-4.2) 1 STANDING ORDER 2 Duplicate procedure ordered. 3 MONITORING: In known diabetic patients, hemoglobin A1c targets should be discussed with health care provider. DIAGNOSTIC USE: The [place] [employer] Association (ADA) and the World Health [...]
== END 2025-04-06 15:08 | disposition home or self-care (01) ==
LOC: HO.HMCH 14:00
PROVIDERS: PCP Internal Medicine; Visit Provider Internal Medicine
DX: B02.9 Zoster without complications (principal); K21.9 Gastro-esophageal reflux disease without esophagitis

== ENCOUNTER → 2025-04-06 14:00 | Outpatient (BNVA) | payer MEDICARE, OTHER, SELFPAY | PROVIDERS: PCP Internal Medicine; Visit Provider Internal Medicine | DX: B02.9 Zoster without complications (principal); K21.9 Gastro-esophageal reflux disease without esophagitis | CPT/HCPCS: 99212 ==

== ENCOUNTER 2025-04-17 10:52 | Outpatient (AMB) | payer MEDICARE, OTHER, SELFPAY ==
--- OUTSIDE RECORDS SUMMARY | 2025-04-06 06:00 | XMS_ITS ---
Author Organization [facility] Address [address] [place] [address] Care Team Providers Care Educational Interpreter Name Role Phone Po Ifeoma MOELLER Primary Care Provider Miguel Kyle [phone] Allergies No Known Allergies REASON FOR VISIT Patient presents today for abdominal pain Medications Medication SIG (Take, Route, Frequency, Duration) Notes Start Date End Date Status Enalapril Maleate 20 MG 1 tablet Orally Once a day for 30 day(s) 04/06/2025 Active Levothyroxine Sodium 25 MCG 1 tablet in the morning on an empty stomach Orally Once a day for 30 day(s) 04/06/2025 Active Pantoprazole Sodium 40 MG 1 tablet 1/2 t o 1 hour before morning meal Orally Once a day for 30 day(s) 04/06/2025 Active amLODIPine Besylate 2.5 MG 1 tablet Oral ly Once a day for 30 day(s) 04/06/2025 Active Atorvastatin Calcium 40 MG 1 tablet Oral ly Once a day for 30 day(s) 04/06/2025 Active Social History Tobacco Use: Social History Observation Description Date Details (start date - stop date) Never Smoker NA - NA Tobacco Control (Standard) Question Answer Notes Tobacco use: Nonsmoker AUDIT-C (Standard) Question Answer Notes Did you have a drink containing alcohol in the p ast year? No Points 0 Interpretation Negative Section Notes: No sig EtOH Vital Signs Temperature 99.3 degrees Fahrenheit 04/06/20 25 Blood pressure systolic 001 mm Hg 04/06/20 25 Blood pressure diastolic 01 mm Hg 025 Height 69 in 04/06/2025 Weight 177.4 lbs 04/06/2025 BMI 26.19 kg/m2 04/06/2025 Encounters Encounter Location Date Provider Diagnosis [facility] [address] [place] [address] 04/06/2025 Miguel Haynes Left lower quadrant abdominal pain R10.32 Assessments Encounter Date Diagnosis (ICD Code) Assessment Notes Treatment Notes Treatment Clinical Notes Section Notes 04/06/2025 Left lower quadrant abdominal pain (ICD-10 - R10.32) Go to Dr. Del Real to see if they want to treat what I think is shingles on your back that is causing the pain. Overall, Thomas appears quite well. Based on his clinical history, his benign abdomen and resolution of the abdominal complaints, and the finding of the rash on his back with what appears to be a dermatomal distribution and appearance of possible shingles, I advised him that I do suspect this is the cause of his previous recent abdominal pain. I suspect the pain was a prodrome to the shingles given the apparent dermatomal distribution and the finding on today's exam. It does not appear that he has any active GI issues at the present time. At this point I do not think he needs a CT scan or any other workup for his pain. I advised him that I do not think this represents diverticulitis at this time although given the location this could certainly have been the case. However, given the spontaneous resolution and the finding of what appears to be shingles in that dermatome I suspect his pain was in relation to that, rather than anything intra-abdominal in nature. As you know, I did send you a photo of the rash and have instructed him to go over to your office now to see if he can get an appointment with you or someone else in the office to evaluate him before the weekend to see whether he might need any specific treatment for what I suspect is shingles. I advised him that I do not think I would need to see him again in follow-up. Given his negative colonoscopy just 2 years ago I advised him that I do not think you need any further screening colonoscopies. I did review with him that certainly if he develops any recurrent abdominal pain or other GI related issues he should certainly call me for a follow-up appointment. Thomas was very comfortable with this plan. Thank you again for allowing me to participate in Thomas's care. I shall continue to keep you advised of his progress. Plan Of Treatment Treatment Notes Assessment Notes Left lower quadrant abdominal pain Go to Dr. Aragon's to see if they want to treat what I think is shingles on your back that is causing the pain. Progress Notes * THOMAS ROSA JrDOB:[birth year] (79 yo M)Acc No.[id number]:04/06/2025 Progress Notes Patient: THOMAS ARCE Jr Provider: Markus Haynes MD :1945 A ge:79 Y S ex:Male Date:04/06/2025 Address:[address] [place] [address] Pcp:Ifeoma Aragon MD Subjective: * Chief Complaints: * 1 . Patient presents today for abdominal pain. * HPI: i ncontinence: I saw Thomas in consultation today in regard to further evaluation of some left lower quadrant abdominal discomfort. I last saw Thomas in 2009, at which time he apparently underwent an upper endoscopy. I do not have those records but he advised me that an upper endoscopy at that time revealed only a hiatal hernia. I have not seen him since this time but he has remained on pantoprazole with good relief of reflux symptoms. He denies any significant heartburn or dysphagia. He enjoys a good appetite and denies any early satiety, nausea, nor vomiting. Over the past number of years he has been followed by Dr. Leyva and most recently underwent a negative colonoscopy with him in 2022. He has not had any upper endoscopy since the exam with me in 2009. He reports that his bowel movements have been regular and without any hematochezia nor melena. Over the past week or so he noticed the onset of some left lower quadrant discomfort that seem to radiate around to the left flank area. He had not had this problem before. He denies any associated fevers, urinary symptoms, jaundice, hematochezia, nor melena. He did not notice any change in appetite, nausea, nor vomiting. He has not had a previous history of diverticulitis. He denies any known family history of colorectal cancer. He describes that after a few days the left lower quadrant pain seemed to resolve but the pain around the left flank area has persisted. He advises me that his noticed a rash on the left side of his mid-back area recently. As far as he knows this is new for him. He does report having had both shingles shots in the past. He has never had a history of shingles in himself. * ROS: G eneral/Constitutional: Change in appetite d enies. C hills d enies. F atigue d enies. O phthalmologic: Comments a ll negative. E NT: Comments a ll negative. R espiratory: hemoptysis d enies. C ough d enies. ? C ardiovascular: Chest pain d enies. O rthopnea d enies. ? G astrointestinal: Comments S ee [facility] for details. G enitourinary: Hematuria d enies. D ysuria d enies. ? M usculoskeletal: Painful joints d enies. W eakness d enies. ? S kin: Itching d enies. R sandy d enies. N eurologic: Headache d enies. S eizures d enies. ? P sychiatric: Comments a ll negative. * Medical History: H [place], Prostate cancer with surgery as below, Denies HI,DM,CVA,renal disease, Negative colonoscopy in [address] Leyva, Interstitial pulmonary disease-sees Dr. Sharma, Hypothyroidism, GERD- He has undergone a previous upper endoscopy with me in 2009 that revealed a reported hiatal hernia but no reported esophagitis or Barber's esophagus.. * Surgical History: P rostatectomy 1996, Right shoulder replacement 2014. * Family History: F ather: . M other: , at age 85 from colon cancer, diagnosed with Colon cancer, Heart disease. No family history of liver cancer. * Social History: T obacco Use: T obacco Control (Standard) T obacco use: N onsmoker. M iscellaneous: M arital status: . Occupation: retired. D rug/Alcohol: A FERNANDO-C (Standard) D id you have a drink containing alcohol in the past year? N o,?Points 0 , I nterpretation N egative. N o sig EtOH. * Medications: T aking Atorvastatin Calcium 40 MG Tablet 1 tablet Orally Once a day , Taking amLODIPine Besylate 2.5 MG Tablet 1 tablet Orally Once a day , Taking Pantoprazole Sodium 40 MG Tablet Delayed Release 1 tablet 1/2 to 1 hour before morning meal Orally Once a day , Taking Levothyroxine Sodium 25 MCG Tablet 1 tablet in the morning on an empty stomach Orally Once a day , Taking Enalapril Maleate 20 MG Tablet 1 tablet Orally Once a day * Allergies: N .K.D.A. Objective: * Vitals: W t:177.4lbs, Ht:69in, BMI:26.19Index, BP:001/01mm Hg, Temp:99.3, Ht-cm: 175.26, Wt-k.47. * Examination: G eneral Examination: GENERAL APPEARANCE: p leasant, well nourished, well developed, in no acute distress. EYES: s clera non-icteric. ORAL CAVITY: m ucosa moist. NECK/THYROID: n o cervical lymphadenopathy, neck supple.? SKIN: n onjaundiced, no spider angiomata. HEART: S 1, S2 normal. LUNGS: c lear to auscultation bilaterally. ABDOMEN: n ormal bowel sounds, no guarding or rigidity, no guarding or rigidity, no masses palpable, soft, nontender, nondistended. BACK: T here is a rash on his back in the area of the left lower ribs beneath the scapula and to the left of the spine. It is approximately 2 x 4 cm with some associated raised lesions that appear to have some vesicles. There is no drainage. Separate from that and what appears to be proceeding down that dermatome there is a single small area with 1 vesicle on his left side.. EXTREMITIES: n o edema. NEUROLOGIC: a lert and oriented. Assessment: * Assessment: 1. L eft lower quadrant abdominal pain - R10.32 (Primary) Overall, Thomas appears araceli te well. Based on his clinical history, his benign abdomen and resolution of the abdominal complaints, and the finding of the rash on his back with what appears to be a dermatomal distribution and appearance of possible shingles, I advised him that I do suspect this is the cause of his previous recent abdominal pain. I suspect the pain was a prodrome to the shingles given the apparent dermatomal distribution and the finding on today's exam. It does not appear that he has any active GI issues at the present time. At this point I do not think he needs a CT scan or any other workup for his pain. I advised him that I do not think this represents diverticulitis at this time although given the location this could certainly have been the case. However, given the spontaneous resolution and the finding of what appears to be shingles in that dermatome I suspect his pain was in relation to that, rather than anything intra-abdominal in nature. As you know, I did send you a photo of the rash and have instructed him to go over to your office now to see if he can get an appointment with you or someone else in the office to evaluate him before the weekend to see whether he might need any specific treatment for what I suspect is shingles. I advised him that I do not think I would need to see him again in follow-up. Given his negative colonoscopy just 2 years ago I advised him that I do not think you need any further screening colonoscopies. I did review with him that certainly if he develops any recurrent abdominal pain or other GI related issues he should certainly call me for a follow-up appointment. Thomas was very comfortable with this plan. Thank you again for allowing me to participate in Thomas's care. I shall continue to keep you advised of his progress. Plan: * Treatment: * Preventive Medicine: Counseling: C are goal follow-up plan: A davin Normal BMI Follow-up D ietary management education, guidance, and counseling, B HI management provided Y es. Screenings: F all Risk Screening F all Risk Assessment: N o falls in the past year, S creening: N o falls in the past year, A ssessment: N ot performed, no reason specified, P bradley of Care: N ot documented, no reason specified. * * The named appointment provid er may or may not be the originator of this progress note, and it is not deemed complete until electronically signed by the appointment provider. Sign off status: Pending * Provider: Markus Haynes MD Date: 04/06/2025 Generated for Kyler suresh/Julio C/Enzoitting on: 04/17/2025 01:14 PM EDT History and Physical Notes * HPI (History of Present Illness) Category Sub-Category Detail Notes Category Not es incontinence I saw Thomas in consultation today in regard to further evaluation of some left lower quadrant abdominal discomfort. I last saw Thomas in 2009, at which time he apparently underwent an upper endoscopy. I do not have those records but he advised me that an upper endoscopy at that time revealed only a hiatal hernia. I have not seen him since this time but he has remained on pantoprazole with good relief of reflux symptoms. He denies any significant heartburn or dysphagia. He enjoys a good appetite and denies any early satiety, nausea, nor vomiting. Over the past number of years he has been followed by Dr. Leyva and most recently underwent a negative colonoscopy with him in 2022. He has not had any upper endoscopy since the exam with me in 2009. He reports that his bowel movements have been regular and without any hematochezia nor melena. Over the past week or so he noticed the onset of some left lower quadrant discomfort that seem to radiate around to the left flank area. He had not had this problem before. He denies any associated fevers, urinary symptoms, jaundice, hematochezia, nor melena. He did not notice any change in appetite, nausea, nor vomiting. He has not had a previous history of diverticulitis. He denies any known family history of colorectal cancer. He describes that after a few days the left lower quadrant pain seemed to resolve but the pain around the left flank area has persisted. He advises me that his noticed a rash on the left side of his mid-back area recently. As far as he knows this is new for him. He does report having had both shingles shots in the past. He has never had a history of shingles in himself. Examination Category Sub-Category Detail Notes Category Not es General Examination GENERAL APPEARANCE: pleasant , well nourished, well developed, in no acute distress EYES: sclera non-icteric NECK/THYROID: no cervical lymphade nopathy, neck supple HEART: S1, S2 normal LUNGS: clear to auscultatio n bilaterally ABDOMEN: normal bowel sounds, no guarding or rigidity, no guarding or rigidity, no masses palpable, soft, nontender, nondistended NEUROLOGIC: alert and oriented SKIN: nonjaundiced, no spi donnell angiomata EXTREMITIES: no edema BACK: There is a rash on h is back in the area of the left lower ribs beneath the scapula and to the left of the spine. It is approximately 2 x 4 cm with some associated raised lesions that appear to have some vesicles. There is no drainage. Separate from that and what appears to be proceeding down that dermatome there is a single small area with 1 vesicle on his left side. ORAL CAVITY: mucosa moist
[2025-04-17 10:54] VITALS: BP 142/76; PULSE 92; O2SAT 98; BMI 25.3
--- NOTE | 2025-04-17 10:54 | HO.NEPHOV ---
Vital Signs 04/17/25 10:54 Height 5 ft 10 in Weight 176 lb BMI 25.3 BP 142/76 H Blood Pressure Location Lt brachial Position Sitting Pulse 92 Pulse Source Pulse Oximeter Pulse Oximetry (%) 98 Oxygen Delivery Method Room Air Intake Visit Reasons: 6 MO FU-Conf Movement Therapist Required: No Accompanied by: Self / Same As Patient Allergies hydrochlorothiazide Adverse Reaction (Intermediate, Verified 04/17/25 10:57) Hypotension Medication List - Last Reconciled 04/17/25 by Sonny Franklin MD amlodipine 2.5 mg PO DAILY atorvastatin (Lipitor) 40 mg PO QPM enalapril maleate 20 mg PO DAILY levothyroxine (Synthroid) 25 mcg PO DAILY pantoprazole 40 mg PO QAM valacyclovir 1,000 mg PO Q8H 7 days HPI Comments Details: 79-year-old man with a longstanding history of hypertension which has been well controlled with enalapril. Recently hydrochlorothiazide 12.5 mg was added. Subsequently he developed lightheadedness and blood pressure dropped as low as 80 mm Hg systolic. Hydrochlorothiazide was discontinued. He monitors his blood pressure at home and systolic blood pressure is around 120-130 millimeter of mercury. Baseline creatinine is around 1.2-1.3 mg/dL as of 2020. In April 2023 creatinine bumped up to 1.59 widely was on enalapril 20 mg and hydrochlorothiazide 12.5 mg. No creatinine levels are available after discontinuation of hydrochlorothiazide. He has a history of a complex hepatic cyst and he is being followed by GI. Currently the plan is to monitor him. There was an incidental finding of a right renal cyst which has been documented as a simple cyst 12/10/23; Ray continues her shortness of breath on exertion year pulmonary function tests. He was given bronchodilators which did not help him. He was found to have some interstitial disease. Overall blood pressure seems to be well controlled 05/10/2024. Recently having difficulty with hyperthyroidism. Seen by endocrinology. He has gained weight last visit 10/10/24 From a renal standpoint ,no complaints 04/17/25 The patient is a 79-year-old male presenting with CKD and HTN Recently had shingles. The patient reports a rash and pain, with red lips possibly due to dry mouth from medication. He has a history of chickenpox and received a shingles vaccine in the . A liver cyst is being monitored by GI Medical History: - History of chickenpox - Liver cyst under observation Medications: - Valacyclovir: Completed a 7-day course for shingles PFSH Medical History Elevated fasting glucose Prostate cancer Lipid disorder Surgical History H/O colonoscopy History of right shoulder replacement H/O prostatectomy Family History Mother H/O mitral valve replacement Colon cancer Father Cirrhosis, alcoholic Social History Household Members: Spouse Housing: House Alcohol intake: current Alcohol intake frequency: a few times a month Alcohol type: wine Comment: 2x a week 2 glasses Patient Tobacco Use Status: Former Tobacco user Tobacco use type: Cigarette Cigarette Packs Per Day: 1 Years Smoked: stopped 20 years old e-Cigarette/Vaping Use: Never Used Second Hand Smoke Exposure: Yes service: No Current occupational status: retired Cognitive needs: No Hearing needs: No Vision needs: Yes Physical Exam Vital Signs: Last Vital Signs Pulse 92 04/17/25 10:54 BP 142/76 H 04/17/25 10:54 Pulse Ox 98 04/17/25 10:54 Oxygen Delivery Method Room Air 04/17/25 10:54 BMI result Body Mass Index 25.3 Const General: no acute distress and alert Nutritional Appearance: not obese Orientation/consciousness: patient oriented x3 and Other orientation findings ( oriented) HEENT Head: Yes atraumatic Eyes General: appearance normal, both eyes and all related structures Visual Botello: normal visual botello by confrontation Sclerae: sclerae normal EOM: EOMs intact bilaterally Neck Neck: Yes supple Lymphatic: no lymphadenopathy noted Resp Effort & Inspection: normal respiratory effort and no use of accessory muscles Auscultation: clear to auscultation bilaterally Cardio Palpation: no palpable S3 and no palpable S4 Rate: regular rate Rhythm: regular rhythm Heart sounds: no gallops, no murmurs and no rubs GI Inspection: Yes normal to inspection Palpation (GI): Soft to palpation Percussion: Yes normal to percussion Auscultation: normal bowel sounds General: Yes no CVA tenderness Back/Spine/Pelvis Back: no CVA tenderness Skin General skin exam: other ( warm) Neuro General: patient oriented x3 and no focal motor deficits Extrem General: No clubbing, No cyanosis and No edema Assessment & Plan Assessment & Plan (1) SOB (shortness of breath) on exertion: Code(s): R06.02 - Shortness of breath Category: Medical (2) Hypertension, essential: Code(s): I10 - Essential (primary) hypertension Category: Medical (3) CKD (chronic kidney disease): Code(s): N18.9 - Chronic kidney disease, unspecified Category: Medical Qualifiers: Chronic kidney disease stage 3 subtype: stage 3a (GFR 45-59) (4) SAMAN (acute kidney injury): Code(s): N17.9 - Acute kidney failure, unspecified Category: Medical Plan 79-year-old man with a h/o acute kidney injury superimposed on CKD. Acute kidney injury most likely due to hypoperfusion from a combination of GOPAL inhibitor and hydrochlorothiazide leading to hypotension. He has underlying chronic kidney disease most likely due to hypertensive nephrosclerosis. No evidence of obstruction based on the recent ultrasonogram. No reason to believe that is any active glomerular or interstitial disease at this time. Nevertheless we will rule that out. Blood pressure is better controlled No changes were made to his antihypertensive regimen I encouraged him to stay on a low-sodium diet. He should monitor his blood pressure at home. Complex hepatic cyst. Being followed by Gastroenterology. Simple right renal cyst. I do not think this needs further intervention at this time. . Orders: Orders Comprehensive Met. Panel Today N18.9 - Chronic kidney disease, unspecified Complete Blood Count no Diff Today N18.9 - Chronic kidney disease, unspecified Coding Level of Care Code Est Pt Level 4 (64912) Diagnoses SOB (shortness of breath) on exertion R06.02 Hypertension, essential I10 CKD (chronic kidney disease) N18.9 Chronic kidney disease stage 3 subtype: stage 3a (GFR 45-59) SAMAN (acute kidney injury) N17.9
--- OUTSIDE RECORDS SUMMARY | 2025-04-17 13:15 | XMS_ITS | Patient Health Record ---
Author Organization [facility] Address [address] [place] [address] Care Team Providers Care Cover Cutter Machine Name Role Phone Po Ifeoma MOELLER Primary Care Provider Miguel Kyle [phone] Allergies No Known Allergies Reason For Referral [...] 04/06/2025 Encounters Encounter Location Date Provider Diagnosis [facility] [address] [place] [address] 04/06/2025 Miguel Haynes Left lower quadrant abdominal [...] MEDICARE OF MARILYN BRICE [address] [id number] THOMAS ROSA Self - patient is the insured 9 [facility] [address] [place] [phone] [id number] THOMAS ROSA Self - patient is the insured 5 Medical (General) History Medical History History ICD Code HTN Prostate cancer with surgery as below Denies [place],DM,CVA,renal disease Negative colonoscopy [place] [address] Onel torres Interstitial pulmonary disease-sees Dr. Sharma Hypothyroidism GERD- He has undergone a pre vious upper endoscopy with me in 2009 that revealed a reported hiatal hernia but no reported esophagitis or Barber's esophagus. Surgical History Surgery Date(Month/Year) Right shoulder replacement 2014 Prostatectomy 1997
== END 2025-04-17 11:11 | disposition home or self-care (01) ==
LOC: HO.HKA 10:53
PROVIDERS: PCP Internal Medicine; Visit Provider Internal Medicine Hypertension Specialist
DX: R06.02 Shortness of breath (principal); I12.9 Hypertensive chronic kidney disease with stage 1 through stage 4 chronic kidney disease, or unspecified chronic kidney disease; N18.9 Chronic kidney disease, unspecified; N17.9 Acute kidney failure, unspecified
CPT/HCPCS: 99214

== ENCOUNTER → 2025-04-17 10:52 | Outpatient (BNVA) | payer MEDICARE, OTHER, SELFPAY | PROVIDERS: PCP Internal Medicine; Visit Provider Internal Medicine Hypertension Specialist | DX: N17.9 Acute kidney failure, unspecified (principal); I12.9 Hypertensive chronic kidney disease with stage 1 through stage 4 chronic kidney disease, or unspecified chronic kidney disease; N18.31 Chronic kidney disease, stage 3a; R06.02 Shortness of breath | CPT/HCPCS: 36415; 80053; 85027; 99212 ==

== ENCOUNTER 2025-04-17 11:35 | Outpatient (REF) | payer MEDICARE, OTHER, SELFPAY ==
[2025-04-17 13:08] LABS: Hematocrit 45.3 % (42.0-52.0); Hemoglobin 15.1 g/dl (14.0-18.0); Mean Corpuscular HGB Conc 33.3 g/dl (31.0-36.0); Mean Corpuscular Hemoglobin 30.6 pg (27.0-33.0); Mean Corpuscular Volume 91.7 fL (80.0-98.0); NRBC Abs Auto 0.000 X10*3/uL (0.0-0.012); NRBC Pct Auto 0.0 /100WBC (0.0-0.2); Platelet Count 326 X10*3/uL (160-400); Red Blood Count 4.94 X10*6/uL (4.60-5.80); White Blood Count 12.4 X10*3/uL (4.8-10.8)
[2025-04-17 13:35] LABS: Alanine Aminotransferase 15 U/L (0-40); Albumin Level 4.3 g/dL (3.5-5.0); Alkaline Phosphatase 118 U/L (39-117); Anion Gap 14 (12-20); Aspartate Amino Transferase 20 U/L (5-37); Blood Urea Nitrogen 16 mg/dL (9-16); Calcium 9.4 mg/dL (8.4-10.2); Carbon Dioxide 26 mmol/L (22-29); Chloride 105 mmol/L (96-108); Estimated Glomerular Filt Rate 48; Potassium 4.3 mmol/L (3.3-5.1); Sodium 141 mmol/L (135-145); Total Protein 7.5 g/dL (6.5-8.0)
--- OUTSIDE RECORDS SUMMARY | 2025-04-17 14:15 | XMS_ITS | Continuity of Care Document ---
Author Organization [facility] [address] [place] [address] Phone [phone] Care Team Providers Care Imager Name Role Phone Ifeoma Aragon Care Team Information Net Wpf Developer + [phone] Problems Active Problems Provider Date Essential hypertension [...] SIG Qnty Indications Ordering Provider Date Enalapril Cdalyqy89ae Tablets Take 1 Tablet By Mouth Every Day Benny Mcgovern M.D. Pravastatin Wquxez76xd Tablets Take 1 Tablet By Mouth Every Day Benny Mcgovern M.D. Pantoprazole Qxgbbv00vs Tablets DR 1 by mouth every day [...] 0.82-1.77 TSH With Reflex To FT4 07/01/2023 [facility] TSH With Reflex To FT4 0.95 uIU/mL (0.4-4.2) Hemoglobin A1c With Est Glucose 01/23/2023 [facility] Hemoglobin A1c 5.6 % (4.0-5.6) 3 Estimated Average Glucose 114 mg/dL TSH With Reflex To FT4 01/23/2023 [facility] TSH With Reflex To FT4 1.72 uIU/mL (0.4-4.2) TSH With Reflex To FT4 10/07/2022 [facility] TSH With Reflex To FT4 1.45 uIU/mL (0.4-4.2) Free T4 10/07/2022 [facility] Free T4 1.36 ng/dL (0.70-1.8 0) TSH With Reflex To FT4 08/18/2022 [facility] TSH With Reflex To FT4 1.75 uIU/mL (0.4-4.2) Free T4 08/18/2022 [facility] Free T4 1.44 ng/dL (0.70-1.8 0) TSH 08/18/2022 [facility] TSH Duplicate order <SEE NOTE> 4 TSH With Reflex To FT4 07/10/2022 [facility] TSH With Reflex To FT4 14.70 uIU/mL High (0.4-4.2) Free T4 07/10/2022 [facility] Free T4 1.00 ng/dL (0.70-1.8 0) Free T4 02/19/2022 [facility] Free T4 0.93 ng/dL (0.70-1.8 0) TSH 02/19/2022 [facility] TSH 4.85 uIU/mL High (0.4-4.2) 1 STANDING ORDER 2 Duplicate procedure ordered. 3 MONITORING: In known diabetic patients, hemoglobin A1c targets should be discussed with health care provider. DIAGNOSTIC USE: The [place] Diabetes [employer] (ADA) and the World Health [...]
== END 2025-04-17 11:36 | disposition home or self-care (01) ==
LOC: HO.10HDL 11:35
PROVIDERS: Visit Provider Internal Medicine Hypertension Specialist
DX: N18.9 Chronic kidney disease, unspecified (principal)
CPT/HCPCS: 36415; 80053; 85027

== ENCOUNTER 2025-05-23 07:34 | Outpatient (REF) | payer MEDICARE, OTHER, SELFPAY ==
--- OUTSIDE RECORDS SUMMARY | 2025-05-23 07:37 | XMS_ITS | Data Portability ---
Author Organization [facility], [facility] Address [address] [place] [address] Care Team Providers Care Deep Well Contractor Name Role Phone SAMANTHAJAYE Primary Care Provider [phone] Assessment No assessment recorded. Plan of Treatment Reminders Order Date Submit Date Provider Last Modified By Organization Details Last Modified Time Details Appointments None record ed. Lab None record ed. Referral None record ed. Procedures None record ed. Surgeries None record ed. Imaging XR, knee, 4 or more view - rm 111 4V l knee pain 024 04/26/20 24 [email or web address], [address], [place], [address], 11:10:03 Medication Orders None record ed. Patient TargetsNo targets recorded. Patient InstructionsNo instructions recorded. Reason for Referral None Reported. Results Created Date Observation Date Name Description Value Unit Range Abnormal Flag Note LastModifiedBy Organization Detail LastModifiedTime 04/26/20 24 04/26/2024 XR, knee, 4 or more view [email or web address] ?Encry pted=s hAaTro YD8dLq bEUv6g %2BXZw aYqtaq 0bqfl% 2Fg9IQ a4ajBk vP9nXo QUaueC m3YtLR FvZlgJ JJ8mAn HZtai3 8a5749 AC0Kqa niFVqK hKiQtr MwF INTERFACE [facility] [address], [place], [address], 04/26/2024 10:15:09 04/26/20 24 04/26/2024 XR, knee, 4 or more view [email or web address] ?Encry pted=s hAaTro YD8dLq bEUv6g %2BXZw aYqtaq 0bqfl% 2Fg9IQ a4ajBk vP9nXo QUaueC m3YtLR FvZlgJ JJ8mAn HZtai3 7z2935 AC0Kqa niFVqK hKiQtr MwF INTERFACE [facility] [address], [place], [address], 04/26/2024 10:15:11 Result Notes Documentation Provider Name and Address Organization Details Recorded Time Xr, Knee, 4 Or More View : [email or web address] Encrypted=bfBpQkiAR8qMyjB Uv6g%2RMCmtKxoom1gunn%2Fg 3SRx3eaOsnS2bLhXJlreHx0Kp LDGkNsnTWP7vRzTYdew41y985 1KE0JqeqfFElHkJyUwkZiH Not Available [facility] 04/26/2024 10:15: 10 Xr, Knee, 4 Or More View : [email or web address] Encrypted=pjSqNogLC2wLijS Uv6g%1PDGhpKrfow6riby%2Fg 8OQp6jwRypI4yDlCGjhdPm1Kg TCGxYxuCUF6mNkWFfnf26a873 2YM2QngkePCpYtHkIkyNyU Not Available [facility] 04/26/2024 10:15: 12 Procedures Surgical History Date Name Laterality Status Provider Name and Address Organization Details Recorded Time 02/28/2025 Sports Knee 4&1 completed Alessandro Cronin PA-C [address], [place], [address], [facility] 03/07/2025 13:42:17 04/26/2024 Sports Knee 4&1 completed Alessandro Cronin PA-C [address], [place], [address], [facility] 04/26/2024 11:38:34 Imaging Results None recorded. Procedure Notes None recorded. Medical Equipment None Reported. Allergies No known drug allergies Medications Name Sig Start Date Stop Date Status Note LastModified by Organization Details LastModified Time amoxicillin 500 mg capsule 4 pills 1 hour prior to procedure 2024 active Not Available Not Available Not Avai lable ketoconazol e 2 % shampoo active Not Available Not Available Not Available azithromyci n 250 mg tablet FOLLOW PACKAGE DIRECTION S 02/28 completed Not Available Not Available Not Available pravastatin 40 mg tablet TAKE 1 TABLET BY MOUTH DAILY active Not Available Not Available No t Available enalapril maleate 20 mg tablet TAKE 1 TABLET BY MOUTH DAILY active Not Available Not Available No t Available clobetasol 0.05 % topical cream active Not Available Not Available Not Available amlodipine 2.5 mg tablet TAKE 1 TABLET BY MOUTH DAILY active Not Available Not Available No t Available pantoprazol e 40 mg tablet,miriam yed release TAKE 1 TABLET BY MOUTH EVERY MORNING active Not Available Not Available No t Available albuterol sulfate HFA 90 mcg/actuati on aerosol inhaler INHALE 2 PUFFS BY MOUTH EVERY 4 TO 6 HOURS NEEDED FOR SHORTNESS OF BREATH OR WHEEZING active Not Available Not Available No t Available methimazole 10 mg tablet 02/28 completed Not Available Not Available Not Available clobetasol 0.05 % scalp solution active Not Available Not Available Not Available oxycodone HCl-oxycodo ne-ASA 1-3 tablets Q4-6 hours prn pain s/p shoulder surgeryDO NOT DRIVE WHILE ON THIS MEDICATIO N 02/28 completed Statu s: 'Curr ent'; Not Available Not Available Not Available Anoro Ellipta 62.5 mcg-25 mcg/actuati on powder for inhalation active Not Available Not Available N ot Available Procto-Med HC 2.5 % topical cream perineal applicator active Not Available Not Available N ot Available Vitals Date Recorded Body height Body mass index (BMI) Body weight Provider Name and Address Organization Details Last Updated DateTime 02/28/2025 175.26 cm 25.8 kg/m2 23504.66 g Pauline Clemens [facility] 02/28/2025 17:20:27 Date Recorded Body height Body mass index (BMI) Body weight Provider Name and Address Organization Details Last Updated DateTime 04/26/2024 175.26 cm 11.1 kg/m2 70433.43 g JIN RAMOSKAITLIN [facility] 04/26/2024 10:06:21 Social History None recorded. Functional Status None recorded. Mental Status None recorded. Family History Nothing Reported. Medical History No medical history recorded. Gynecological HistoryNo gynecological history recorded. Obstetrics History GPAL:G 0 P 0 0 0 0 Past Encounters Encounter ID Performer Location Encounter Start Date Encounter Closed Date Diagnosis/Indication Diagnosis SNOMED-CT Code Diagnosis ICD10 Code Diagnosis IMO Codes Diagnosis Note [id number] [facility] [address] [place] [address] 04/26/2024 09:51:12 05/17/2024 09:50:51 Pain of left knee joint 9894381917 65561 M25.562 Osteoarthr itis of left knee joint 2966842799 68628 M17.12 [id number] Alessandro Cronin PA-C [facility] [address] [place] [address] 02/28/2025 17:17:19 03/13/2025 09:38:48 Osteoarthritis of left knee joint 2124691323 39822 M17.12 [id number] Health Concerns Section Related Observation LastModified by Organization Detai ls LastModified Time None Recorded Concern Status LastModified by Organization Details LastModified Time None Recorded Advance Directives Directive None Recorded Payers Insurance Date Sequence Insurance Name Policy Number Policy Roberts Covered Member ID Roberts Member ID Guarantor Name 03/13/2025 2 [facility] - PLAN 1 (MEDICARE SUPPLEMENT) [id number] 1 Reji Velazco [id number] Reji Velazco 02/27/2025 1 MEDIC[place] B[place]: [facility] Reji Velazco [id number] Reji Velazco Notes Date Note Type Note Provider Name and Address Organization Details Recorded Time 04/26/2024 text/html ROS as noted in the HPI I am seeing the patient today under the supervision of Dr. Choi who was available but who did not see the patient. HPI:Patient presents today follow-up regarding their Left knee. They have had difficulty up and down stairs sitting standing. Patient had increased pain after he was doing a lot of kneeling. He did have previous cortisone injection approximately 15 months ago which worked really well for her up until recently. He denies any injuries or falls. He would like to proceed with continued injection since they been working so well for him. Past family, medical, social history and review of systems has been reviewed, updated and is located in the patient s chart. Examination:The patient is well appearing and in no apparent distress. Alert and oriented x3. Gait is symmetric. Examination of the Left knee reveals no evidence of any edema, erythema, or warmth. No Deformity. Range of motion of the knee limited with mild discomfort at the end ranges. No effusion. Does have some tenderness to palpation about the medial hemijoint line. No tenderness to palpation about the lateral hemijoint line. Patellofemoral crepitus is noted. Tenderness to palpation over the lateral patellar facet and medial patellar facet. no ligamentous laxity. Negative Luis Manuel s . Calf is supple and nontender. Neurovascularly intact distally. 4 views of the left knee obtained and independently reviewed in the office today reveal joint space narrowing with it both medial and lateral joint compartments. There is significant degenerativeChanges of the patellofemoral joint with evidence of nrvt-ji-ojmo articulation. Bipartite patella noted. No fracture. Impression:Left Knee osteoarthritis Plan:We discussed the role of conservative management including medications, physical therapy, injection and bracing. At this point the patient was to proceed with injection. Please see procedure note. They will follow up with us as scheduled. Alessandro Cronin PA-C [address], [place], [address], [facility] 04/26/2024 11:39:52 02/28/2025 text/html ROS as noted in the HPI I am seeing the patient today under the supervision of Dr. Choi who was available but who did not see the patient. HPI:Patient presents today follow-up regarding their Left knee. They have had difficulty up and down stairs sitting standing. He received a previous cortisone injection about 10 months ago which lasted up until the last 2 weeks. No recent injuries or falls. Problems ambulating. Zknr-biq-ppriayn medications are helping somewhat but not significantly. Pain is constant aching sometimes sharp pain with giving out sensations. Past family, medical, social history and review of systems has been reviewed, updated and is located in the patient s chart. Examination:The patient is well appearing and in no apparent distress. Alert and oriented x3. Gait is symmetric. Examination of the Left knee reveals no evidence of any edema, erythema, or warmth. No Deformity. Range of motion of the knee limited with mild discomfort at the end ranges. Mild effusion. Does have some tenderness to palpation about the medial hemijoint line. No tenderness to palpation about the lateral hemijoint line. Patellofemoral crepitus is noted. mild medial ligamentous laxity. Negative Luis Manuel s . Calf is supple and nontender. Neurovascularly intact distally. Impression:Left Knee osteoarthritis Plan:We discussed the role of conservative management including medications, physical therapy, injection and bracing. At this point the patient was to proceed with injection. Please see procedure note. They will follow up with us as scheduled. Alessandro Cronin PA-C [address], [place], [address], [place] [facility] 03/07/2025 13:42:34 OBGyn Episode No OBEpisode recorded.
--- OUTSIDE RECORDS SUMMARY | 2025-05-23 07:37 | XMS_ITS | Continuity of Care Document ---
Author Organization [facility] [address] [place] [address] Phone [phone] Care Team Providers Care Security Assessor Name Role Phone Ifeoma Aragon Care Team Information Ag Equipment Field Service Technician + [phone] Problems Active Problems Provider Date Essential hypertension [...] SIG Qnty Indications Ordering Provider Date Enalapril Yiumaba17of Tablets Take 1 Tablet By Mouth Every Day Benny Mcgovern M.D. Pravastatin Cxhrbn28sh Tablets Take 1 Tablet By Mouth Every Day Benny Mcgovern M.D. Pantoprazole Swyqnb40wq Tablets DR 1 by mouth every day [...] 0.82-1.77 TSH With Reflex To FT4 07/01/2023 [facility] TSH With Reflex To FT4 0.95 uIU/mL (0.4-4.2) Hemoglobin A1c With Est Glucose 01/23/2023 [facility] Hemoglobin A1c 5.6 % (4.0-5.6) 3 Estimated Average Glucose 114 mg/dL TSH With Reflex To FT4 01/23/2023 [facility] TSH With Reflex To FT4 1.72 uIU/mL (0.4-4.2) TSH With Reflex To FT4 10/07/2022 [facility] TSH With Reflex To FT4 1.45 uIU/mL (0.4-4.2) Free T4 10/07/2022 [facility] Free T4 1.36 ng/dL (0.70-1.8 0) TSH With Reflex To FT4 08/18/2022 [facility] TSH With Reflex To FT4 1.75 uIU/mL (0.4-4.2) Free T4 08/18/2022 [facility] Free T4 1.44 ng/dL (0.70-1.8 0) TSH 08/18/2022 [facility] TSH Duplicate order <SEE NOTE> 4 TSH With Reflex To FT4 07/10/2022 [facility] TSH With Reflex To FT4 14.70 uIU/mL High (0.4-4.2) Free T4 07/10/2022 [facility] Free T4 1.00 ng/dL (0.70-1.8 0) Free T4 02/19/2022 [facility] Free T4 0.93 ng/dL (0.70-1.8 0) TSH 02/19/2022 [facility] TSH 4.85 uIU/mL High (0.4-4.2) 1 STANDING ORDER 2 Duplicate procedure ordered. 3 MONITORING: In known diabetic patients, hemoglobin A1c targets should be discussed with health care provider. DIAGNOSTIC USE: The [place] Diabetes [employer] (ADA) and the World Health [...]
--- OUTSIDE RECORDS SUMMARY | 2025-05-23 07:37 | XMS_ITS | Patient Health Record ---
Author Organization [facility] Address [address] [place] [address] Care Team Providers Care Bending Roll Hand Name Role Phone Po Ifeoma MOELLER Primary Care Provider Miguel Kyle [phone] Allergies No Known Allergies Reason For Referral No Information Medications Medication SIG (Take, Route, Frequency, Duration) Notes Start Date End Date Status Enalapril Maleate 20 MG 1 tablet Orally Once a day; Duration: 30 day(s) 04/06/2025 Active Levothyroxine Sodium 25 MCG 1 tablet in the morning on an empty stomach Orally Once a day; Duration: 30 day(s) 04/06/2025 Active Pantoprazole Sodium 40 MG 1 tablet 1/2 t o 1 hour before morning meal Orally Once a day; Duration: 30 day(s) 04/06/2025 Active amLODIPine Besylate 2.5 MG 1 tablet Oral ly Once a day; Duration: 30 day(s) 04/06/2025 Active Atorvastatin Calcium 40 MG 1 tablet Oral ly Once a day; Duration: 30 day(s) 04/06/2025 Active Immunizations Vaccine Route [...] 04/06/2025 Encounters Encounter Location Date Provider Diagnosis [facility] [address] [place] [address] 04/06/2025 Miguel Haynes Left lower quadrant abdominal pain R10.32 and Rash and other nonspecific skin eruption R21 Assessments Encounter Date Diagnosis (ICD Code) Assessment Notes Treatment Notes Treatment Clinical Notes Section Notes 04/06/2025 Rash and other nonspecific skin eruption (ICD-10 - R21) Overall, Thomas appears quite well. Based on [...] advised him that I do not think he needs any further screening colonoscopies. I did review with him that certainly if he develops any recurrent abdominal pain or other GI related issues he should certainly call me for a follow-up appointment. Thomas was very comfortable with this plan. Thank you again for allowing me to have participated in Thomas's care. I shall continue to keep you advised of his progress as needed. Please do not hesitate to contact me if I can be of further assistance. 04/06/2025 Left lower quadrant abdominal pain (ICD-10 [...] advised him that I do not think he needs any further screening colonoscopies. I did review with him that certainly if he develops any recurrent abdominal pain or other GI related issues he should certainly call me for a follow-up appointment. Thomas was very comfortable with this plan. Thank you again for allowing me to have participated in Thomas's care. I shall continue to keep you advised of his progress as needed. Please do not hesitate to contact me if I can be of further assistance. Plan Of Treatment No Information Insurance Providers Payer Name Payer Address Payer Phone Subscriber Number Group Number Insured Name Patient Relationship to Insured Coverage Start Date Coverage End Date MEDICARE OF [place] [address] [place] [address] [id number] THOMAS ROSA Self - patient is the insured [address] [facility] [place] [phone] [id number] [place] , THOMAS Self - patient is the insured 5 [...]
[2025-05-23 07:48] LABS: MANUAL DIFF FLAG NO
[2025-05-23 08:25] LABS: Appearance Urine Clear; Glucose Urine UA Negative (Negative); PH 5.0 (5.0-9.0); Specific Gravity - Urine 1.020 (1.005-1.025); UMIC TRIGGER UA YES
[2025-05-23 08:29] LABS: Hematocrit 40.5 % (42.0-52.0); Hemoglobin 13.5 g/dl (14.0-18.0); Imm Gran Abs Auto 0.05 X10*3/uL (0.00-0.03); Imm Gran Pct Auto 0.6 % (0.0-0.4); Lymphocytes Absolute Auto 1.3 X10*3/uL (1.2-4.9); Mean Corpuscular HGB Conc 33.3 g/dl (31.0-36.0); Mean Corpuscular Hemoglobin 31.0 pg (27.0-33.0); Mean Corpuscular Volume 93.1 fL (80.0-98.0); NRBC Abs Auto 0.000 X10*3/uL (0.0-0.012); NRBC Pct Auto 0.0 /100WBC (0.0-0.2); Platelet Count 337 X10*3/uL (160-400); Red Blood Count 4.35 X10*6/uL (4.60-5.80); White Blood Count 8.5 X10*3/uL (4.8-10.8)
[2025-05-23 09:14] LABS: Alanine Aminotransferase 18 U/L (0-40); Albumin Level 4.0 g/dL (3.5-5.0); Alkaline Phosphatase 107 U/L (39-117); Anion Gap 12 (12-20); Aspartate Amino Transferase 18 U/L (5-37); Blood Urea Nitrogen 18 mg/dL (9-16); Calcium 8.9 mg/dL (8.4-10.2); Carbon Dioxide 25 mmol/L (22-29); Chloride 110 mmol/L (96-108); Cholesterol 137 mg/dL (<200); Estimated Glomerular Filt Rate 50; HDL Cholesterol 40 mg/dL (>40); Potassium 4.5 mmol/L (3.3-5.1); Sodium 142 mmol/L (135-145); Total Protein 6.8 g/dL (6.5-8.0); Triglycerides 72 mg/dL (<150)
[2025-05-23 09:21] LABS: Free T4 (Free Thyroxine) 1.02 ng/dL (0.71-1.85); Thyroid Stimulating Hormone 10.00 uIU/mL (0.32-4.0)
[2025-05-23 09:33] LABS: Folate 7.3 ng/mL (> or = 4.0); Vitamin B12 208 pg/mL (200-900)
== END 2025-05-23 07:35 | disposition home or self-care (01) ==
LOC: HO.LAB 07:34
PROVIDERS: PCP Internal Medicine; Visit Provider Internal Medicine
DX: E78.00 Pure hypercholesterolemia, unspecified (principal)
CPT/HCPCS: 36415; 80053; 80061; 81001; 82607; 82746; 84439; 84443; 85025

== ENCOUNTER 2025-05-26 13:07 | Outpatient (AMB) | payer MEDICARE, OTHER, SELFPAY ==
--- NOTE | 2025-05-26 13:23 | A.OFFPC_ITS ---
Vital Signs 05/26/25 13:24 Height 5 ft 10 in Weight 176 lb 4 oz BMI 25.3 BP 146/60 H Blood Pressure Location Lt brachial Position Sitting Pulse 94 Pulse Source Pulse Oximeter Temp 97.3 F Temp Source Temporal Artery Scan Pulse Oximetry (%) 96 Oxygen Delivery Method Room Air Intake Visit Reasons: pe Intake Note: Patient is here today for a physical. Research Leader Required: No Firebreak Cutter: Not Required per policy Accompanied by: Self / Same As Patient Allergies hydrochlorothiazide Adverse Reaction (Intermediate, Verified 05/26/25 13:24) Hypotension Medication List - Last Reconciled 05/26/25 by Ifeoma Aragon MD amlodipine 2.5 mg PO DAILY atorvastatin (Lipitor) 40 mg PO QPM enalapril maleate 20 mg PO DAILY levothyroxine (Unithroid) 50 mcg PO DAILY pantoprazole 40 mg PO QAM Tobacco use date assessed: 05/26/25 Fall risk assessment: No Falls in past year Last assessed Fall Risk: 05/26/25 Dental Screening Dental Screen Date: 08/12/24 [facility] Medical History Elevated fasting glucose Prostate cancer Lipid disorder Surgical History H/O colonoscopy History of right shoulder replacement H/O prostatectomy Family History Mother H/O mitral valve replacement Colon cancer Father Cirrhosis, alcoholic Social History (Updated 05/26/25 @ 13:45 by Ifeoma Aragon MD) Household Members: Spouse Housing: House Alcohol intake: current Alcohol intake frequency: a few times a month Alcohol type: wine Comment: once a week 1 glass Patient Tobacco Use Status: Former Tobacco user Tobacco use type: Cigarette Cigarette Packs Per Day: 1 Years Smoked: stopped 20 years old e-Cigarette/Vaping Use: Never Used Second Hand Smoke Exposure: Yes service: No Current occupational status: retired Cognitive needs: No Hearing needs: No Vision needs: Yes Questionnaire Thrive Questionnaire Date Thrive assessed: 08/12/24 GREGORY-7 AMB Questionnaire GREGORY-7 Date GREGORY - 7 assessed: 04/06/25 Source: Developed by Drs. Miguel Lindsey, Lorna Lazcano, Romario Alberto and colleagues, with an educational rosas from [employer]. Review of Systems Const Denies poor appetite and Denies weakness Eyes Denies no additional complaints ENT Reports Normal hearing present, Denies dizziness, Denies nasal congestion, Denies tinnitus and Denies sore throat Card Denies chest pain, Denies syncope, Denies rapid heart rate and Denies dyspnea Resp Denies cough and Denies dyspnea GI Denies change in stool character, Reports constipation, Denies diarrhea, Denies nausea and Denies vomiting Denies dysuria and Denies urinary frequency Neuro Reports Normal hearing present, Denies confusion, Denies dizziness, Denies syncope and Denies weakness Psych Denies confusion Physical exam (Primary Care) Vital Signs: Last Vital Signs Temp 97.3 F 05/26/25 13:24 Pulse 94 05/26/25 13:24 BP 146/60 H 05/26/25 13:24 Pulse Ox 96 05/26/25 13:24 Oxygen Delivery Method Room Air 05/26/25 13:24 BMI result Body Mass Index 25.3 Tobacco/Smoking Status: Tobacco use Status Tobacco use date assessed 05/26/25 05/26/25 13:28 Patient Tobacco Use Status Former Tobacco user 05/26/25 13:45 Tobacco use type Cigarette 05/26/25 13:45 e-Cigarette/Vaping Use Never Used 05/26/25 13:45 Thrive Assessment: Date of Thrive Assessment Date Thrive assessed 08/12/24 05/26/25 13:28 Const General: No confusion Orientation/consciousness: No confusion HENMT Head: Yes normocephalic Ears: external ears normal and TM's normal bilaterally Face and sinus: Yes normal facial exam Mouth: moist mucous membranes Throat: Yes tonsils normal Eyes Conjunctivae: conjunctivae normal Pupils: Equal, round and reactive pupils present and Pupil accommodation reflex normal Direct Ophthalmoscopy: normal light reflex Neck Neck: No lymphadenopathy Thyroid: Thyroid normal Chest Chest palpation & inspection: normal inspection of the chest Resp Effort & Inspection: normal respiratory effort and no audible wheezes Auscultation: clear to auscultation bilaterally, no crackles, no wheezes and lung sounds not diminished Cardio Rate: regular rate Rhythm: regular rhythm Peripheral pulses: radial pulses present and dorsalis pedis present GI Palpation (GI): no masses Auscultation: normal bowel sounds and normoactive bowel sounds Rectal Exam - Male: Yes deferred Skin General skin exam: no rashes or lesions noted Rashes: no rashes Neuro General: No confusion Cranial nerves: Yes Equal, round and reactive pupils present and Yes Normal hearing present Cognition (Neuro): normal cognition Gait exam (Neuro): Normal gait present Motor exam (neuro): 5/5 motor strength present throughout Deep tendon reflexes (DTR's): Right brachioradialis reflex intensity grade: 2+, Left brachioradialis reflex intensity grade: 2+, Right patellar reflex intensity grade: 2+ and Left patellar reflex intensity grade: 2+ Extrem General: No edema Coding Level of Care Code Est Pt Prev Care >65y(95603) Diagnoses Annual physical exam Z00.00 ILD (interstitial lung disease) J84.9 CKD (chronic kidney disease) N18.9 Chronic kidney disease stage 3 subtype: stage 3a (GFR 45-59) GERD (gastroesophageal reflux disease) K21.9 Hypothyroid E03.9 Impaired glucose tolerance R73.02 Hypercholesteremia E78.00 Coronary artery calcification seen on CT scan I25.10 Hypertension, essential I10 Assessment & Plan Assessment & Plan (1) Annual physical exam: Code(s): Z00.00 - Encounter for general adult medical examination without abnormal findings Category: Medical Plan: Patient is advised to eat healthy, keep well hydrated, keep active and have adequate sleep. (2) ILD (interstitial lung disease): Code(s): J84.9 - Interstitial pulmonary disease, unspecified Category: Medical Plan: Continue to monitor (3) CKD (chronic kidney disease): Code(s): N18.9 - Chronic kidney disease, unspecified Category: Medical Qualifiers: Chronic kidney disease stage 3 subtype: stage 3a (GFR 45-59) Plan: Avoid NSAIDs, keep well hydrated (4) GERD (gastroesophageal reflux disease): Code(s): K21.9 - Gastro-esophageal reflux disease without esophagitis Category: Medical Plan: Avoid the foods that causes that usually spicy foods, tomato products, juices, coffee, soda and foods that your sensitive to. After eating do not lie down, allow 3-4 hours before in lie down. And keep the head of bed above 30 degrees to avoid the acid from going up. (5) Hypothyroid: Code(s): E03.9 - Hypothyroidism, unspecified Category: Medical Plan: Presently on levothyroxine at 50 mcg once a day (6) Impaired glucose tolerance: Code(s): R73.02 - Impaired glucose tolerance (oral) Category: Medical Plan: Decrease the amount of carbohydrate intake, pasta, bread, rice and potatoes are all sugar and that is aside from all the sweet stuff, remember that fruits are good but they are Sweet also. (7) Hypercholesteremia: Code(s): E78.00 - Pure hypercholesterolemia, unspecified Category: Medical Plan: Avoid fried foods, chicken skin, eggs, butter margarine, pastries and meat. Be it pork or beef they have a lot of cholesterol presently on atorvastatin 40 mg once a day. LDL goal of less than 70 and triglyceride of less than 150 (8) Coronary artery calcification seen on CT scan: Code(s): I25.10 - Atherosclerotic heart disease of [place] coronary artery without angina pectoris Category: Medical Plan: Control the cholesterol, weight, blood pressure, discussed about aspirin (9) Hypertension, essential: Code(s): I10 - Essential (primary) hypertension Category: Medical Plan: Continue with enalapril 20 mg once a day and amlodipine 2.5 mg once a day Plan History of Present Illness The patient is a 79-year-old male presenting for a physical examination and follow-up on chronic conditions. The patient has a history of hypertension, hypercholesterolemia, and hyperthyroidism, which have been managed with medication. He is currently on levothyroxine 50 mcg daily for hyperthyroidism and atorvastatin 40 mg daily for hypercholesterolemia, with a target LDL cholesterol of less than 70 mg/dL. The patient also has gastroesophageal reflux disease (GERD) and chronic kidney disease attributed to hypertensive nephrosclerosis. He is advised to avoid NSAIDs and maintain adequate hydration to manage his kidney condition. The patient has interstitial lung disease with a history of asbestos exposure and impaired glucose tolerance. His blood sugar was noted to be elevated at 104 mg/dL during the last blood work. Coronary artery calcification was identified on a CT scan, and he is being followed by cardiology. He is currently on enalapril 20 mg daily and amlodipine 2.5 mg daily for blood pressure management. 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 His liver function tests are normal, and his LDL cholesterol is 83 mg/dL. Health Maintenance - Colonoscopy last performed in 2022 Social History Review of Systems - Respiratory: Reports cough Physical Exam General: Cooperative, healthy appearing, comfortable, no acute distress and well developed Orientation: Patient oriented x3 Limitations: No limitations Head: Normal to inspection Ears: Hearing grossly normal bilaterally Nose: Normal external nose present Face and sinus: Normal facial exam Eyes: Appearance normal, both eyes and all related structures Neck: Normal visual inspection and Yes full ROM Respiratory: Normal respiratory effort and able to speak in complete sentences. Clear to auscultation bilaterally Cardiovascular: Regular rate and rhythm. Normal S1 and S2 GI: Normal to inspection. Soft to palpation and nontender Skin: No rashes or lesions noted Neuro: Patient oriented x3 Extremities: Normal to inspection Results - Labs: Mild anemia with hemoglobin 13.5 g/dL, normal platelet count, normal electrolytes, renal function at 1.37 mg/dL, elevated blood sugar at 104 mg/dL, normal liver function, LDL cholesterol at 83 mg/dL, elevated thyroid levels Plan Patient was informed and verbally consented to the use of an ambient scribe for clinic note documentation during this visit. 1. Hypertension The patient is currently on enalapril 20 mg once daily and amlodipine 2.5 mg once daily for blood pressure management. 2. Hypercholesterolemia The patient is on atorvastatin 40 mg once daily with a target LDL cholesterol of less than 70 mg/dL. 3. Hyperthyroidism The patient is taking levothyroxine 50 mcg once daily. 4. Chronic Kidney Disease The patient is advised to avoid NSAIDs and maintain adequate hydration. Discussion Notes Patient Instructions Orders: Orders Hemoglobin A1c 3 Months R73.02 - Impaired glucose tolerance (oral) Free T4 (Free Thyroxine) 3 Months R73.02 - Impaired glucose tolerance (oral) Reticulocyte Count 3 Months R73.02 - Impaired glucose tolerance (oral) Comprehensive Met. Panel 3 Months R73.02 - Impaired glucose tolerance (oral) Complete Blood Count Auto Diff 3 Months R73.02 - Impaired glucose tolerance (oral) Ferritin 3 Months R73.02 - Impaired glucose tolerance (oral) IRON PROFILE 3 Months R73.02 - Impaired glucose tolerance (oral) Lipid Panel 3 Months E78.00 - Pure hypercholesterolemia, unspecified, R73.02 - Impaired glucose tolerance (oral) Thyroid Stimulating Hormone 3 Months R73.02 - Impaired glucose tolerance (oral) Vitamin B12 and Folate 3 Months R73.02 - Impaired glucose tolerance (oral) Medications: New clotrimazole-betamethasone 1-0.05 % 1 appl topical BID 45 grams 0RF 2 weeks cyanocobalamin (vitamin B-12) 1,000 mcg PO DAILY 30 caps 3RF E53.8 - Deficiency of other specified B group vitamins aspirin 81 mg PO DAILY 30 tabs 11RF Changed From atorvastatin (Lipitor) 40 mg PO QPM 90 tabs 1RF To atorvastatin 80 mg PO QPM 90 tabs 1RF
[2025-05-26 13:24] VITALS: BP 146/60; PULSE 94; TEMP 36.3; O2SAT 96; BMI 25.3
--- OUTSIDE RECORDS SUMMARY | 2025-05-26 15:42 | XMS_ITS | Data Portability ---
Author Organization [facility], [facility] Address [address] [place] [address] Care Team Providers Care Repairer Recreational Vehicle Name Role Phone SAMANTHAJAYE Primary Care Provider Assessment No assessment recorded. Plan of Treatment Reminders Order Date Submit Date Provider Last Modified By Organization Details Last Modified Time Details Appointments None record ed. Lab None record ed. Referral None record ed. Procedures None record ed. Surgeries None record ed. Imaging XR, knee, 4 or more view - rm 111 4V l knee pain 024 04/26/20 24 [email or web address] [facility] [employer] [facility], [address], [place], [address], 11:10:03 Medication Orders None record ed. Patient [...] a4ajBk vP9nXo QUaueC m3YtLR FvZlgJ JJ8mAn HZtai3 [id number] AC0Kqa niFVqK hKiQtr MwF INTERFACE [facility] [address], [place], [address], 04/26/2024 10:15:09 04/26/20 24 04/26/2024 XR, knee, 4 or more view http:/ [email or web address] ?Encry pted=s hAaTro YD8dLq bEUv6g %2BXZw aYqtaq 0bqfl% 2Fg9IQ a4ajBk vP9nXo QUaueC m3YtLR FvZlgJ JJ8mAn HZtai3 0r5505 AC0Kqa niFVqK hKiQtr MwF INTERFACE [facility] [address], [place], [address], 04/26/2024 10:15:11 Result Notes Documentation Provider Name and Address Organization Details Recorded Time Xr, Knee, 4 Or More View : [email or web address] Encrypted=fnAkLxnVZ0tAhfX Uv6g%4DQRluGaqiw3lzpy%2Fg 8CNr9szMpeY5zOwCAbebCu3Gj CTSnTopVHD4gKtTAvgy04j033 6XY3GgwdiQXaEvIxYzvHqE Not Available [facility] 04/26/2024 10:15: 10 Xr, Knee, 4 Or More View : [email or web address] Encrypted=jpSfFzxUG3mZjiC Uv6g%3LUAqyKygra0nqxg%2Fg 0DMw2hxFizR3cKcUPaigIf3Go BADxLfvHRY8uXzLQwyo94c294 4DM1HxpjxPWkBvUlSikMdV Not Available [facility] 04/26/2024 10:15: 12 Procedures Surgical History Date Name Laterality Status Provider Name and Address Organization Details Recorded Time 02/28/2025 Sports Knee 4&1 completed Alessandro Cronin PA-C [address], [place], [address], [facility] 03/07/2025 13:42:17 04/26/2024 Sports Knee 4&1 completed Alessandro Cronin PA-C [address], [place], [address], [facility] - [facility] 04/26/2024 11:38:34 Imaging Results [...] Updated DateTime 02/28/2025 175.26 cm 25.8 kg/m2 58013.66 g Pauline Clemens [facility] 02/28/2025 17:20:27 Date Recorded Body height Body mass index (BMI) Body weight Provider Name and Address Organization Details Last Updated DateTime 04/26/2024 175.26 cm 11.1 kg/m2 55623.43 g JIN RAMOSKAITLIN [facility] 04/26/2024 10:06:21 Social History None recorded. Functional Status None recorded. Mental Status None recorded. Family History Nothing Reported. Medical History No medical history recorded. Gynecological HistoryNo gynecological history recorded. Obstetrics History GPAL:G 0 P 0 0 0 0 Past Encounters Encounter ID Performer Location Encounter Start Date Encounter Closed Date Diagnosis/Indication Diagnosis SNOMED-CT Code Diagnosis ICD10 Code Diagnosis IMO Codes Diagnosis Note [id number] [facility] [address] [place] [address] 04/26/2024 09:51:12 05/17/2024 09:50:51 Pain of left knee joint 5836144004 93854 M25.562 Osteoarthr itis of left knee joint 5251627383 73568 M17.12 [id number] Alessandro Cronin PA-C [facility] [address] [place] [address] 02/28/2025 17:17:19 03/13/2025 09:38:48 Osteoarthritis of left knee joint 4109065817 94303 M17.12 [id number] Health Concerns Section Related Observation LastModified by Organization Detai ls LastModified Time None Recorded Concern Status LastModified by Organization Details LastModified Time None Recorded Advance Directives Directive None Recorded Payers Insurance Date Sequence Insurance Name Policy Number Policy Roberts Covered Member ID Roberts Member ID Guarantor Name 03/13/2025 2 [facility] - PLAN 1 (MEDICARE SUPPLEMENT) [id number] 1 Reji Velazco [id number] Reji Velazco 02/27/2025 1 [place]: [facility] Reji Velazco [id number] Reji Velazco Notes Date Note Type Note [...] of the patellofemoral joint with evidence of mzha-jg-tusa articulation. Bipartite patella noted. No fracture. Impression:Left Knee osteoarthritis Plan:We discussed the role of conservative management including medications, physical therapy, injection and bracing. At this point the patient was to proceed with injection. Please see procedure note. They will follow up with us as scheduled. Alessandro Cronin PA-C [address], [place], [address], [facility] - [facility] 04/26/2024 11:39:52 02/28/2025 text/html [...] No recent injuries or falls. Problems ambulating. Cnnz-yzq-lfkicjg medications are helping somewhat but not significantly. [...] us as scheduled. Alessandro Cronin PA-C [address] [facility] [address], [place], [address], [place] - [facility] 03/07/2025 13:42:34 OBGyn Episode No OBEpisode recorded.
--- OUTSIDE RECORDS SUMMARY | 2025-05-26 15:42 | XMS_ITS | Patient Health Record ---
Author Organization [facility] Address [address] [place] [address] Care Team Providers Care Assistant Auditor Name Role Phone Po Ifeoma MOELLER Primary Care Provider Miguel Kyle [phone] Allergies No Known Allergies Reason For Referral [...] 04/06/2025 Encounters Encounter Location Date Provider Diagnosis [facility] [address] [place] [address] 04/06/2025 Miguel Haynes Left lower quadrant abdominal [...] OF [place] [address] [place] [address] [id number] THOMAS ROSA Self - patient is the insured [address] [facility] [address] [facility] [place] [id number] [place] , THOMAS Self - patient is the insured 5 Medical (General) History Medical History History ICD Code HTN Prostate cancer with surgery as below Denies NC,DM,CVA,renal disease Negative colonoscopy [place] [address] Onel torres Interstitial pulmonary disease-sees Dr. Sharma Hypothyroidism GERD- He has undergone a pre vious upper endoscopy with me in 2009 that revealed a reported hiatal hernia but no reported esophagitis or Barber's esophagus. Surgical History Surgery Date(Month/Year) Right shoulder replacement 2014 Prostatectomy 1997
--- OUTSIDE RECORDS SUMMARY | 2025-05-26 15:42 | XMS_ITS | Continuity of Care Document ---
Author Organization [facility] [address] [place] [address] Phone [phone] Care Team Providers Care Water Attendant Name Role Phone Ifeoma Aragon Care Team Information Slater Apprentice + [phone] Problems Active Problems Provider Date Essential hypertension [...] SIG Qnty Indications Ordering Provider Date Enalapril Mlsvrwl46an Tablets Take 1 Tablet By Mouth Every Day Benny Mcgovern M.D. Pravastatin Cheons15ji Tablets Take 1 Tablet By Mouth Every Day Benny Mcgovern M.D. Pantoprazole Fihwlv85kd Tablets DR 1 by mouth every day [...] 0.82-1.77 TSH With Reflex To FT4 07/01/2023 [facility] TSH With Reflex To FT4 0.95 uIU/mL (0.4-4.2) Hemoglobin A1c With Est Glucose 01/23/2023 [facility] Hemoglobin A1c 5.6 % (4.0-5.6) 3 Estimated Average Glucose 114 mg/dL TSH With Reflex To FT4 01/23/2023 [facility] TSH With Reflex To FT4 1.72 uIU/mL (0.4-4.2) TSH With Reflex To FT4 10/07/2022 [facility] TSH With Reflex To FT4 1.45 uIU/mL (0.4-4.2) Free T4 10/07/2022 [facility] Free T4 1.36 ng/dL (0.70-1.8 0) TSH With Reflex To FT4 08/18/2022 [facility] TSH With Reflex To FT4 1.75 uIU/mL (0.4-4.2) Free T4 08/18/2022 [facility] Free T4 1.44 ng/dL (0.70-1.8 0) TSH 08/18/2022 [facility] TSH Duplicate order <SEE NOTE> 4 TSH With Reflex To FT4 07/10/2022 [facility] TSH With Reflex To FT4 14.70 uIU/mL High (0.4-4.2) Free T4 07/10/2022 [facility] Free T4 1.00 ng/dL (0.70-1.8 0) Free T4 02/19/2022 [facility] Free T4 0.93 ng/dL (0.70-1.8 0) TSH 02/19/2022 [facility] TSH 4.85 uIU/mL High (0.4-4.2) 1 STANDING ORDER 2 Duplicate procedure ordered. 3 MONITORING: In known diabetic patients, hemoglobin A1c targets should be discussed with health care provider. DIAGNOSTIC USE: The [place] Diabetes [employer] (ADA) and the World Health [...]
== END 2025-05-26 14:07 | disposition home or self-care (01) ==
LOC: HO.HMCH 13:08
PROVIDERS: PCP Internal Medicine; Visit Provider Internal Medicine
DX: Z00.00 Encounter for general adult medical examination without abnormal findings (principal); I12.9 Hypertensive chronic kidney disease with stage 1 through stage 4 chronic kidney disease, or unspecified chronic kidney disease; J84.9 Interstitial pulmonary disease, unspecified; N18.9 Chronic kidney disease, unspecified; K21.9 Gastro-esophageal reflux disease without esophagitis; E03.9 Hypothyroidism, unspecified; R73.02 Impaired glucose tolerance (oral); E78.00 Pure hypercholesterolemia, unspecified; I25.10 Atherosclerotic heart disease of native coronary artery without angina pectoris

== ENCOUNTER → 2025-05-26 13:07 | Outpatient (BNVA) | payer MEDICARE, OTHER, SELFPAY | PROVIDERS: PCP Internal Medicine; Visit Provider Internal Medicine | DX: Z00.00 Encounter for general adult medical examination without abnormal findings (principal); J84.9 Interstitial pulmonary disease, unspecified; I12.9 Hypertensive chronic kidney disease with stage 1 through stage 4 chronic kidney disease, or unspecified chronic kidney disease; N18.9 Chronic kidney disease, unspecified; K21.9 Gastro-esophageal reflux disease without esophagitis; E03.9 Hypothyroidism, unspecified; R73.02 Impaired glucose tolerance (oral); E78.00 Pure hypercholesterolemia, unspecified; I25.10 Atherosclerotic heart disease of native coronary artery without angina pectoris; Z79.899 Other long term (current) drug therapy | CPT/HCPCS: 99397 ==